=== PATIENT | female | born 1955 | race Caucasian/White ===

== ENCOUNTER 2019-12-11 12:03 | Outpatient (CLI) | payer MEDICARE, MEDICAID, SELFPAY ==
--- NOTE | 2019-12-11 12:45 | USCV_ITS ---
Lorena Murray Age: 64 Gender: F : 1955 Exam Date: 12/11/2019 12:26 Ordering Phys: Dany Andino MD Technologist: Natasha Small Exam Location: [facility] [place] Indication: Cerebral vascular disease BP: 147 / 99 HR: 68 Rhythm: Sinus Technical Quality: Suboptimal MEASUREMENTS (Male / Female) Normal Values 2D ECHO LV Diastolic Diameter PLAX 3.9 cm 4.2 - 5.9 / 3.9 - 5.3 cm LV Systolic Diameter PLAX 2.5 cm LV Chamber Size 4.2 cm IVS Diastolic Thickness 1.6 cm 0.6 - 1.0 / 0.6 - 0.9 cm IVS Systolic Thickness 1.8 cm LVPW Diastolic Thickness 1.3 cm 0.6 - 1.0 / 0.6 - 0.9 cm LVPW Systolic Thickness 1.7 cm RV Chamber Size 2.0 cm LVOT Diameter 2.2 cm LV Ejection Fraction 2D Teich 64.1 % LA Diameter 3.7 cm LA Width 3.3 cm LA Height 5.1 cm RA Width 2.3 cm RA Height 5.0 cm Aorta at Sinotubular Diameter 2.3 cm M-MODE LV Diastolic Diameter MM 5.8 cm 4.2 - 5.9 / 3.9 - 5.3 cm LV Systolic Diameter MM 3.6 cm LV Ejection Fraction MM Teich 67.9 % IVS Diastolic Thickness MM 0.9 cm 0.6 - 1.0 / 0.6 - 0.9 cm IVS Systolic Thickness MM 1.4 cm LVPW Diastolic Thickness MM 1.3 cm 0.6 - 1.0 / 0.6 - 0.9 cm LVPW Systolic Thickness MM 1.9 cm RV Diastolic Diameter MM 1.2 cm Aortic Annulus Diameter 3.1 cm LA Ao Ratio MM 1.2 MV E Point Septal Separation 1.0 cm DOPPLER AV Peak Velocity 104.0 cm/s LVOT Peak Velocity 74.0 cm/s AV Area Cont Eq vti 2.6 cm squared AV Area Cont Eq pk 2.6 cm squared MV Area PHT 3.9 cm squared Mitral E to A Ratio 0.8 MV E' Velocity 9.0 cm/s Mitral E to MV E' Ratio 8.9 Mitral E to LV E' Lateral Ratio 7.2 Mitral E to LV E' Septal Ratio 11.7 TV Peak E Velocity 55.0 cm/s Right Atrial Pressure 3.0 mmHg PV Peak Velocity 60.0 cm/s RV Acceleration Time 0.1 s RV Ejection Time 0.3 s RV AcT/ET 0.4 FINDINGS Left Ventricle Normal left ventricular size, systolic function and wall thickness, with no regional wall motion abnormalities. Grade I/IV diastolic dysfunction (abnormal relaxation filling pattern), normal to mildly elevated filling pressures. Left ventricular ejection fraction is estimated at 55 %. Right Ventricle Normal right ventricular size and systolic function. Normal right ventricular systolic pressure. Right Atrium The right atrium is normal in size. Left Atrium The left atrium is normal in size. Mitral Valve Structurally normal mitral valve without significant stenosis or prolapse. There is no mitral regurgitation. Aortic Valve Structurally normal aortic valve without significant sclerosis or stenosis. There is no aortic regurgitation. Tricuspid Valve Structurally normal tricuspid valve without significant stenosis or regurgitation. Pulmonary artery systolic pressure is normal. Pulmonic Valve Pulmonic valve not well visualized. Pericardium Normal pericardium without effusion. Aorta Normal ascending aorta dimension. CONCLUSIONS Normal left ventricular size, systolic function and wall thickness, with no regional wall motion abnormalities. Grade I/IV diastolic dysfunction (abnormal relaxation filling pattern), normal to mildly elevated filling pressures. Left ventricular ejection fraction is estimated at 55 %. No change from the previous echo dictated 10/03/2017 Dr. Dave Carpio MD (Electronically Signed) Final Date: 11 December 2019 17:35 S
== END 2019-12-11 12:04 | disposition home or self-care (01) ==
LOC: US 12:06
PROVIDERS: Family Provider Family Medicine; PCP Nurse Practitioner Family; Visit Provider Family Medicine
DX: I67.9 Cerebrovascular disease, unspecified (principal)
CPT/HCPCS: 93306

== ENCOUNTER 2019-12-16 15:31 | Outpatient (CLI) | payer MEDICARE, MEDICAID, SELFPAY ==
--- NOTE | 2019-12-16 | US_ITS ---
WS: [id number] DUPLEX CAROTID ULTRASOUND HISTORY: CVA COMPARISON: None available. Doppler and 2-D imaging of the carotid arteries demonstrates no significant stenosis. Mild scattered plaque at the bifurcations bilaterally. Waveforms are normal. ICA to CCA ratios are normal. Vertebral arteries are antegrade. US/ROR carotid duplex BI IMPRESSION: 1. No significant carotid artery stenosis. 2. Mild atherosclerosis at the bifurcations.
== END 2019-12-16 15:32 | disposition home or self-care (01) ==
PROVIDERS: Family Provider Family Medicine; Visit Provider Family Medicine
DX: Z76.89 Persons encountering health services in other specified circumstances (principal)

== ENCOUNTER 2020-09-24 14:08 | Emergency (ER) | payer MEDICARE, MEDICAID, SELFPAY ==
[2020-09-24] VITALS (7 sets, daily range): BP systolic 86–178; BP diastolic 53–95; PULSE 75–88; RESP 14–18; TEMP 36.7; O2SAT 94–98; BMI 30.9
--- NOTE | 2020-09-24 15:06 | XRR_ITS ---
PROCEDURE INFORMATION: Exam: XR Chest, 1 View Exam date and time: 09/24/2020 4:53 PM Age: 65 years old Clinical indication: Injury or trauma; Fall; Blunt trauma (contusions or hematomas) TECHNIQUE: Imaging protocol: XR of the chest Views: 1 view. COMPARISON: CT Chest/Abdomen/Pelvis w IV* 03/15/2018 6:10 PM FINDINGS: Lungs: Mild increased interstitial markings. No consolidative pulmonary infiltrate noted. Pleural space: No pleural effusion. No pneumothorax. Heart/Mediastinum: No cardiomegaly. Bones/joints: Unremarkable. XR/XR chest 1V portable [id number] IMPRESSION: 1. Mild increased interstitial markings. No consolidative pulmonary infiltrate noted. 2. No acute cardiopulmonary disease demonstrated.
--- NOTE | 2020-09-24 15:06 | XRR_ITS ---
PROCEDURE INFORMATION: Exam: XR Left Hip with Pelvis when Performed Exam date and time: 09/24/2020 4:53 PM Age: 65 years old Clinical indication: Injury or trauma; Fall; Blunt trauma (contusions or hematomas); Left; Hip TECHNIQUE: Imaging protocol: XR Left hip with pelvis when performed. Views: 2 or 3 views. COMPARISON: CR Pelvis AP 1 or 2 views* [id number] 04/08/2018 5:41 PM FINDINGS: Bones/joints: Status post left hip hemiarthroplasty. No hip dislocation. No fracture or other acute osseous abnormality. Soft tissues: Unremarkable. XR/XR hip LT 2-3V wo/w pel* [id number] IMPRESSION: 1. Status post left hip hemiarthroplasty. 2. No acute fracture demonstrated.
[2020-09-24 15:24] LABS: Basophils % 0.2 %; Hematocrit 42.7 % (37.0-47.0); Lymphocytes # 1.4 10^3/uL (0.8-4.8); Lymphocytes % 26.9 %; Mean Corpuscular HGB Conc 32.8 g/dL (30.0-36.0); Mean Corpuscular Hemoglobin 27.6 pg (28.0-34.0); Mean Corpuscular Volume 84.1 fL (81-99); Monocytes # 0.4 10^3/uL (0.2-0.9); Monocytes % 6.8 %; Neutrophils # 3.41 10^3/uL (1.8-7.7); Neutrophils % 65.9 %; Nucleated Red Blood Cells % 0 %; Platelet Count 105 10^3/cmm (130-400); Red Blood Count 5.08 10^6/uL (4.1-5.3); Red Cell Distribution Width 13.4 % (12.1-15.1); White Blood Count 5.2 10^3/uL (4.0-10.0)
--- NOTE | 2020-09-24 15:27 | ED_ITS ---
HPI - Weakness General: Chief complaint: Weakness Stated complaint: INCREASED WEAKNESS/ FALLS Time Seen by Provider: 09/24/20 14:41 Source: patient Mode of arrival: EMS Limitations: no limitations History of Present Illness: HPI Narrative: This is a 65-year-old female patient presents to the emergency department with several different complaints. She complains of generalized body aches, a fever a few days ago, bilateral knee pains, and several falls. She states that she has fallen several times in the last few days and sustained an ear laceration. The laceration was 2 days ago and she does put some skin glue on it. She is here to be evaluated. MD Complaint: generalized weakness and difficulty walking Associated symptoms: Denies chills, dysuria, fever(s), headache(s), nausea or vomiting Review of Systems General: Reports: 10 or more systems reviewed and unremarkable except in HPI and below Const: Reports: body aches; Denies: fever(s) or chills Eyes: Denies: change in vision or blurry vision ENMT: Denies: throat pain, enlarged tonsils, odynophagia, hoarseness, mouth pain or swelling of lips/tongue Card: Denies: palpitations, irregular heart rhythm, edema or swelling of feet/ankles Resp: Denies: dyspnea, productive cough or non-productive cough GI: Denies: abdominal pain, nausea or vomiting : Denies: flank pain, difficulty voiding, dysuria, urinary frequency, uri nary urgency or urinary hesitancy Musc: Reports: extremity pain, joint pain and muscle cramps; Denies: neck pain, back pain or extremity swelling Skin/Breast: Denies: rash, pruritus or erythema Neuro: Denies: headache(s), numbness in extremities or weakness in extremities Endo: Denies: polyuria, polydipsia or tired all the time PFS ED PFSH: Medical History Chronic UTI Hepatitis C Hypertension Panic disorder Family History Father CAD (coronary artery disease) Psychiatric illness Mother CAD (coronary artery disease) Hypertension Psychiatric illness Grandmother Cancer Psychiatric illness Brother Cancer Psychiatric illness Social History Smoking and tobacco status: current some day smoker Second hand smoke exposure: Yes Alcohol intake: former Physical Exam Const: COMMON NORMALS: no acute distress, average body habitus, patient oriented x3, no limitations, healthy appearing, alert and well nourished HENMT: COMMON NORMALS: normocephalic, atraumatic and moist oral mucous membranes HEAD & SCALP: normocephalic and atraumatic Neck/C-Spine: COMMON NORMALS: no meningeal signs and no JVD Resp: COMMON NORMALS: normal respiratory effort, No retractions, No use of accessory muscles, clear to auscultation bilaterally and percussion normal AUSCULTATION: clear to auscultation bilaterally PERCUSSION: percussion normal Cardio: COMMON NORMALS: no JVD, regular rate, regular rhythm, S1 normal heart sound present, S2 normal heart sound present, No gallops present (Cardio), No clicks present (Cardio), No murmurs present (Cardio), No rub (Cardio) and Peripheral pulses 2+ throughout RATE: regular rate RHYTHM: regular rhythm HEART SOUNDS: S1 normal heart sound present and S2 normal heart sound present PERIPHERAL PULSES: Peripheral pulses 2+ throughout GI: COMMON NORMALS: Normal to inspection, nondistended, normoactive bowel sounds present, Soft to palpation, non-tender, No hepatosplenomegaly present, no masses and no bruits PALPATION: Yes Soft to palpation and Yes No hepatosplenomegaly present Extremity: COMMON NORMALS: normal to inspection, full ROM, capillary refill normal, no calf tenderness and no pedal edema Neuro: COMMON NORMALS: patient oriented x3 SENSORIUM/ORIENTATION: Yes alert MENINGEAL SIGNS: Yes no meningeal signs Skin: COMMON NORMALS: no rashes or lesions noted, no wounds, turgor normal, no jaundice, no petechiae and no mottling GENERAL SKIN EXAM: no rashes or lesions noted and turgor normal Course Vital Signs: Vital signs: Vital Signs Temperature 98.1 F 09/24/20 14:16 Pulse Rate 78 09/24/20 22:53 Respiratory Rate 16 09/24/20 22:53 Blood Pressure 136/72 09/24/20 22:53 Pulse Oximetry 94 09/24/20 22:53 MDM - Weakness MDM Narrative: Medical decision making narrative: This 65 year old female patient who presented to the ED with several non specific complaints but the overriding theme is pain and she wanted massive doses of pain medication. I spoke with her PCP, Dr. Andino and he advised that i only give her what i believe is appropriate and she does not take 40 mg of morphine as she claims. Evaluation of the patient in the ED including labs and imaging were unremarkable. She was quite uncooperative in the ED and did not comply with a lot of what we wanted to do to investigate her symptoms. She only wanted pain medication. Since i could not find any acute cause for her symptoms, and her vital signs are unremarkable and stable. She is discharged home with no new orders. Medical Records: Attestation: I reviewed the patient's medical records. Lab Data: Attestation: I reviewed the patient's lab results. Labs: Lab Results 09/24/20 09/24/20 09/24/20 Range/Units 15:15 15:15 15:15 WBC 5.2 (4.0-10.0) 10^3/ uL RBC 5.08 (4.1-5.3) 10^6/u L Hgb 14.0 (11.5-15.3) g/dL Hct 42.7 (37.0-47.0) % MCV 84.1 (81-99) fL MCH 27.6 L (28.0-34.0) pg MCHC 32.8 (30.0-36.0) g/dL RDW 13.4 (12.1-15.1) % Plt Count 105 L (130-400) 10^3/c mm MPV 11.0 H (7.4-10.4) fL Neut % (Auto) 65.9 % Lymph % (Auto) 26.9 % Juncos % (Auto) 6.8 % Eos % (Auto) 0.0 % Baso % (Auto) 0.2 % Neut # (Auto) 3.41 (1.8-7.7) 10^3/u L Lymph # (Auto) 1.4 (0.8-4.8) 10^3/u L Juncos # (Auto) 0.4 (0.2-0.9) 10^3/u L Eos # (Auto) 0.0 (0.0-0.8) 10^3/u L Baso # (Auto) 0.0 (0.0-0.1) 10^3/u L Nucleated RBC % (a uto) 0 % Nucleated RBCs # 0.0 /100WBC Sodium 142 (136-145) mmol/L Potassium 4.1 (3.5-5.1) mmol/L Chloride 108 H (98-107) mmol/L Carbon Dioxide 24 (22-29) mmol/L Anion Gap 14.1 (5-19) BUN 26 H (8-23) mg/dL Creatinine 0.5 (0.5-0.9) mg/dL GFR Calculation 123.4 (90-130) mL/min Glucose 103 (65-115) mg/dL Calculated Osmolal ity 299 H (285-295) mOsm/k g Lactate 1.5 (0.5-2.2) mmol/L Calcium 9.5 (8.5-10.5) mg/dL Total Bilirubin 0.2 (0.15-1.2) mg/dL AST 22 (0-32) U/L ALT 15 (0-33) U/L Alkaline Phosphata se 77 (35-105) IU/L Creatine Kinase 147 (26-192) U/L C-Reactive Protein 7.2 H (0.0-4.9) mg/L Total Protein 7.1 (6.6-8.7) g/dL Albumin 3.9 (3.5-5.2) g/dL Globulin 3.2 (1.3-4.6) g/dL Lipase 44 (13-60) U/L Procalcitonin 0.11 (0-0.5) ng/mL Urine Color (Yellow) Urine Appearance (CLEAR) Urine pH (5-7) Ur Specific Gravit y (1.005-1.030) Urine Protein (Negative) Urine Glucose (UA) (Normal) Urine Ketones (Negative) Urine Blood (Negative) Urine Nitrate (Negative) Urine Bilirubin (Negative) Urine Urobilinogen (Negative) mg/dL Ur Leukocyte Bia ase (Negative) Influenza Type A A g (Negative) Influenza Type B A g (Negative) SARS-CoV-2 Ag (Rap id) (Negative) 09/24/20 09/24/20 09/24/20 Range/Units 15:35 15:35 19:50 WBC (4.0-10.0) 10^3/ uL RBC (4.1-5.3) 10^6/u L Hgb (11.5-15.3) g/dL Hct (37.0-47.0) % MCV (81-99) fL MCH (28.0-34.0) pg MCHC (30.0-36.0) g/dL RDW (12.1-15.1) % Plt Count (130-400) 10^3/c mm MPV (7.4-10.4) fL Neut % (Auto) % Lymph % (Auto) % Juncos % (Auto) % Eos % (Auto) % Baso % (Auto) % Neut # (Auto) (1.8-7.7) 10^3/u L Lymph # (Auto) (0.8-4.8) 10^3/u L Juncos # (Auto) (0.2-0.9) 10^3/u L Eos # (Auto) (0.0-0.8) 10^3/u L Baso # (Auto) (0.0-0.1) 10^3/u L Nucleated RBC % (a uto) % Nucleated RBCs # /100WBC Sodium (136-145) mmol/L Potassium (3.5-5.1) mmol/L Chloride (98-107) mmol/L Carbon Dioxide (22-29) mmol/L Anion Gap (5-19) BUN (8-23) mg/dL Creatinine (0.5-0.9) mg/dL GFR Calculation (90-130) mL/min Glucose (65-115) mg/dL Calculated Osmolal ity (285-295) mOsm/k g Lactate (0.5-2.2) mmol/L Calcium (8.5-10.5) mg/dL Total Bilirubin (0.15-1.2) mg/dL AST (0-32) U/L ALT (0-33) U/L Alkaline Phosphata se (35-105) IU/L Creatine Kinase (26-192) U/L C-Reactive Protein (0.0-4.9) mg/L Total Protein (6.6-8.7) g/dL Albumin (3.5-5.2) g/dL Globulin (1.3-4.6) g/dL Lipase (13-60) U/L Procalcitonin (0-0.5) ng/mL Urine Color Yellow (Yellow) Urine Appearance Clear (CLEAR) Urine pH 5 (5-7) Ur Specific Gravit y 1.025 (1.005-1.030) Urine Protein Neg (Negative) Urine Glucose (UA) Norm (Normal) Urine Ketones Negative (Negative) Urine Blood Neg (Negative) Urine Nitrate Negative (Negative) Urine Bilirubin Neg (Negative) Urine Urobilinogen Norm (Negative) mg/dL Ur Leukocyte Bia ase Negative (Negative) Influenza Type A A g Negative (Negative) Influenza Type B A g Negative (Negative) SARS-CoV-2 Ag (Rap id) Negative (Negative) Imaging Data^: CXR: Attestation: I personally reviewed and interpreted this imaging study as follows: Radiologist's impression: [place] [address] XRay Report Signed Patient: Lorena Murray #: [id number] : 4Acct#:[id number] Age/Sex: 65 / FADM Date: 09/24/20 [facility] [place] Attending Dr: Ordering Provider/Ordering MD: Boni Small MD, [facility] [place] Date of Service: 09/24/20 Procedure(s): XR chest 1V portable [id number] Accession Number(s): [id number] Report Number: [id number] PROCEDURE INFORMATION: Exam: XR Chest, 1 View Exam date and time: 09/24/2020 4:53 PM Age: 65 years old Clinical indication: Injury or trauma; Fall; Blunt trauma (contusions or hematomas) TECHNIQUE: Imaging protocol: XR of the chest Views: 1 view. COMPARISON: CT Chest/Abdomen/Pelvis w IV* 03/15/2018 6:10 PM FINDINGS: Lungs: Mild increased interstitial markings. No consolidative pulmonary infiltrate noted. Pleural space: No pleural effusion. No pneumothorax. Heart/Mediastinum: No cardiomegaly. Bones/joints: Unremarkable. XR/XR chest 1V portable [id number] IMPRESSION: 1. Mild increased interstitial markings. No consolidative pulmonary infiltrate noted. 2. No acute cardiopulmonary disease demonstrated. Dictated By:Akash Jung MD Signed By:Akash Jugn MDSigned Date/Time:09/24/201917 DD/ 16 Xray Ortho: Radiologist's impression: [address] [address] XRay Report Signed Patient: Lorena Murray #: [id number] : 1955t#:[id number] Age/Sex: 65 / FADM Date: 09/24/20 Loc: ERRoom/Bed: Attending Dr: Ordering Provider/Ordering MD: Boni Small MD, [facility] [place] Date of Service: 09/24/20 Procedure(s): XR hip LT 2-3V wo/w pel* [id number] Accession Number(s): [id number] Report Number: [id number] PROCEDURE INFORMATION: Exam: XR Left Hip with Pelvis when Performed Exam date and time: 09/24/2020 4:53 PM Age: 65 years old Clinical indication: Injury or trauma; Fall; Blunt trauma (contusions or hematomas); Left; Hip TECHNIQUE: Imaging protocol: XR Left hip with pelvis when performed. Views: 2 or 3 views. COMPARISON: CR Pelvis AP 1 or 2 views* [id number] 04/08/2018 5:41 PM FINDINGS: Bones/joints: Status post left hip hemiarthroplasty. No hip dislocation. No fracture or other acute osseous abnormality. Soft tissues: Unremarkable. XR/XR hip LT 2-3V wo/w pel* [id number] IMPRESSION: 1. Status post left hip hemiarthroplasty. 2. No acute fracture demonstrated. Dictated By:Akash Jung MD Signed By:Akash Jung MDSigned Date/Time:09/24/201917 DD/ [address] [address] XRay Report Signed Patient: Lorena Murray #: [id number] : 4Acct#:[id number] Age/Sex: 65 / FADM Date: 09/24/20 Loc: ERRoom/Bed: Attending Dr: Ordering Provider/Ordering MD: Boni Small MD, [facility] [place] Date of Service: 09/24/20 Procedure(s): XR knee LT 3V* [id number] Accession Number(s): [id number] Report Number: [id number] PROCEDURE INFORMATION: Exam: XR Left Knee Exam date and time: 09/24/2020 6:41 PM Age: 65 years old Clinical indication: Injury or trauma; Fall; Blunt trauma; Knee; Left; Additional info: Knee pain TECHNIQUE: Imaging protocol: XR Left knee. Views: 3 views. COMPARISON: No relevant prior studies available. FINDINGS: Bones/joints: No fracture or other acute osseous abnormality. No joint narrowing, dislocation, or effusion noted. Small osteophytes arise from the superior and inferior portions of the patella. Soft tissues: The soft tissues appear unremarkable. XR/XR knee LT 3V* [id number] IMPRESSION: No acute abnormality demonstrated. Dictated By:Akash Jung MD Signed By:Akash Jung MDSigned Date/Time:09/24/202022 DD/ 21 Other Xray: Radiologist's impression: [place] [address] CT Scan Report Signed Patient: Lorena Murray #: [id number] : 4Acct#:[id number] Age/Sex: 65 / FADM Date: 09/24/20 Loc: ERRoom/Bed: Attending Dr: Ordering Provider/Ordering MD: Boni Small MD, [facility] [place] Date of Service: 09/24/20 Procedure(s): CT lumbar spine wo con* [id number] Accession Number(s): [id number] Report Number: [id number] PROCEDURE INFORMATION: Exam: CT Lumbar Spine Without Contrast Exam date and time: 09/24/2020 7:19 PM Age: 65 years old Clinical indication: Low back pain; Prior surgery; Surgery type: Thr; Patient HX: Multiple falls. Decreased weight bearing. C/O back and bilateral leg pain. TECHNIQUE: Imaging protocol: Computed tomography images of the lumbar spine without contrast. Radiation optimization: All CT scans at this facility use at least one of these dose optimization techniques: automated exposure control; mA and/or kV adjustment per patient size (includes targeted exams where dose is matched to clinical indication); or iterative reconstruction. COMPARISON: CR Lumbar Spine 2-3 views* [id number] 04/08/2018 5:41 PM RADIATION DOSE METRICS: Total DLP (mGy-cm): 902.78 FINDINGS: Vertebrae: Severe old T12 compression fracture. Mild old L3 and L4 superior endplate compression fractures. No acute fracture or other acute osseous abnormality. Discs/Spinal canal/Neural foramina: Severe degenerative disc narrowing and vacuum disc phenomenon at L5-S1. Intervertebral disc heights are otherwise preserved. Mild vacuum disc phenomenon at T12-L1. Spondylitic changes at the L2-L3 level and L3-L4 level result in mild spinal canal stenosis. There is a left paracentral disc protrusion at L5-S1, which may impinge upon the left S1 nerve. Soft tissues: Unremarkable. CT/CT lumbar spine wo con* [id number] IMPRESSION: 1. No acute fracture or other acute osseous abnormality. Old compression fractures at T12, L3, and L4. 2. Spondylitic changes at the L2-L3 level and L3-L4 level result in mild spinal canal stenosis. 3. There is a left paracentral disc protrusion at L5-S1, which may impinge upon the left S1 nerve. Radiation Dose CTDIVOL = (mGy): DLP = 902.78 (mGy-cm) Dictated By:Akash Jung MD Signed By:Akash Jung MDSigned Date/Time:09/24/202039 DD/ 38 Discharge Plan Discharge Patient Disposition: Home Clinical Impression: Chronic pain, Physical deconditioning Condition: Stable Prescriptions: Continued magnesium oxide 400 mg (241.3 mg magnesium) tablet 400 mg PO BEDTIME RF: 0 amlodipine 5 mg tablet 5 mg PO QAM RF: 0 potassium chloride 10 mEq tablet extended release 10 meq PO BEDTIME RF: 0 levothyroxine [Synthroid] 112 mcg tablet 112 mcg PO QAM RF: 0 montelukast 10 mg tablet 10 mg PO DAILY PRN (Reason: unknown) RF: 0 dicyclomine 10 mg capsule 10 mg PO QID RF: 0 nicotine 21 mg/24 hr patch 24 hour 1 patch transdermal DAILY RF: 0 gabapentin 800 mg tablet 800 mg PO TID RF: 0 metoprolol tartrate 25 mg tablet 25 mg PO Q12H RF: 0 furosemide 40 mg tablet 20 mg PO DAILY PRN (Reason: Edema) RF: 0 garlic 1,000 mg capsule 1,000 mg PO QAM RF: 0 red yeast rice 600 mg tablet 600 mg PO BID RF: 0 mecobalamin (vitamin B12) 1,000 mcg tablet,chewable 1,000 mcg PO QAM RF: 0 aspirin [Adult Aspirin Regimen] 81 mg tablet,delayed release (DR/EC) 81 mg PO QAM RF: 0 diphenhydramine HCl [Allergy Relief(diphenhydramin)] 25 mg tablet 25 mg PO QID PRN (Reason: Allergy Symptoms) RF: 0 loperamide [Imodium A-D] 2 mg capsule 2 mg PO QID PRN (Reason: Diarrhea) RF: 0 alprazolam [Xanax] 2 mg tablet 2 mg PO TID PRN (Reason: unknown) RF: 0 albuterol sulfate [ProAir HFA] 90 mcg/actuation HFA aerosol inhaler 2 puff inhalation QID PRN (Reason: Shortness Of Breath) RF: 0 metronidazole 0.75 % cream 1 applic topical BID Qty: 45 RF: 3 pantoprazole 40 mg tablet,delayed release (DR/EC) 40 mg PO BID MDD 2 30 Days Qty: 60 RF: 3 ibuprofen 800 mg Tablet 800 mg PO BID RF: 0 citalopram 20 mg tablet 20 mg PO DAILY RF: 0 triamcinolone acetonide 0.025 % Cream 1 applic TOPICAL BID PRN (Reason: unknown) RF: 0 ascorbic acid (vitamin C) 500 mg Tablet,Chewable 1,000 mg PO DAILY@12 RF: 0 omega 9-wwq-jic-fish oil 500-1,000 mg Capsule 1 cap PO BEDTIME RF: 0 Afar-Fggl-Hdnsv (vit C-biotin) 50 mg -1,250 mcg Tablet,Chewable 2 tab PO DAILY RF: 0 Probichew 21 billion cell - 1 gram Tablet,Chewable 2 tab PO QAM RF: 0 Elderberry Gummy 1 cap PO DAILY@12 RF: 0 Discharge Orders: Discharge ED (Routine); Ordered 09/24/20 Ordered By: Boni Small Referrals: Dany Andino MD [Primary Care Provider] - 1-3 days Discharge Diet: Usual diet Discharge Activity: Increase activity as tolerated Patient Instructions: Chronic Pain (ED), Weakness (ED) Activity Restrictions/Additional Instructions: Return for any new or worsening symptoms. Follow-up with your primary care provider within 2 days. You probably will benefit from physical therapy, either at home or in a [facility] facility. Discussed with your primary care provider on your best options. Continue home medications. Coding Level of Care Code ED [employer] for Chg Fwd Exam Comprehensive
[2020-09-24] MEDS: morphine 4 mg/mL SDV 1 mL 10 MG IVP (15:33)
[2020-09-24 15:42] LABS: Alanine Aminotransferase 15 U/L (0-33); Albumin Level 3.9 g/dL (3.5-5.2); Alkaline Phosphatase 77 IU/L (35-105); Anion Gap 14.1 (5-19); Aspartate Amino Transferase 22 U/L (0-32); Blood Urea Nitrogen 26 mg/dL (8-23); C Reactive Protein 7.2 mg/L (0.0-4.9); Calcium 9.5 mg/dL (8.5-10.5); Carbon Dioxide 24 mmol/L (22-29); Chloride 108 mmol/L (98-107); Creatine Phosphokinase 147 U/L (26-192); Globulin 3.2 g/dL (1.3-4.6); Glomerular Filtration Rate 123.4 mL/min (90-130); Glucose 103 mg/dL (65-115); Lipase 44 U/L (13-60); Osmolality Calculated 299 mOsm/kg (285-295); Potassium 4.1 mmol/L (3.5-5.1); Sodium 142 mmol/L (136-145); Total Bilirubin 0.2 mg/dL (0.15-1.2); Total Protein 7.1 g/dL (6.6-8.7)
[2020-09-24 15:43] LABS: Lactate (Lactic Acid level) 1.5 mmol/L (0.5-2.2)
[2020-09-24 16:07] LABS: Procalcitonin 0.11 ng/mL (0-0.5)
[2020-09-24 16:29] LABS: SARS Covid-2 Antigen Negative (Negative)
--- NOTE | 2020-09-24 16:38 | PC.NURSE ---
Pt continues to ask for Morphine 40 mg.
[2020-09-24 16:45] LABS: Influenza A by IFA Negative (Negative); Influenza B by IFA Negative (Negative)
[2020-09-24] MEDS: sodium chloride 0.9% 1,000 ML 999 ML IV (17:06)
--- NOTE | 2020-09-24 18:16 | XRR_ITS ---
PROCEDURE INFORMATION: Exam: XR Left Knee Exam date and time: 09/24/2020 6:41 PM Age: 65 years old Clinical indication: Injury or trauma; Fall; Blunt trauma; Knee; Left; Additional info: Knee pain TECHNIQUE: Imaging protocol: XR Left knee. Views: 3 views. COMPARISON: No relevant prior studies available. FINDINGS: Bones/joints: No fracture or other acute osseous abnormality. No joint narrowing, dislocation, or effusion noted. Small osteophytes arise from the superior and inferior portions of the patella. Soft tissues: The soft tissues appear unremarkable. XR/XR knee LT 3V* [id number] IMPRESSION: No acute abnormality demonstrated.
--- NOTE | 2020-09-24 18:16 | CTR_ITS ---
PROCEDURE INFORMATION: Exam: CT Lumbar Spine Without Contrast Exam date and time: 09/24/2020 7:19 PM Age: 65 years old Clinical indication: Low back pain; Prior surgery; Surgery type: Thr; Patient HX: Multiple falls. Decreased weight bearing. C/O back and bilateral leg pain. TECHNIQUE: Imaging protocol: Computed tomography images of the lumbar spine without contrast. Radiation optimization: All CT scans at this facility use at least one of these dose optimization techniques: automated exposure control; mA and/or kV adjustment per patient size (includes targeted exams where dose is matched to clinical indication); or iterative reconstruction. COMPARISON: CR Lumbar Spine 2-3 views* [id number] 04/08/2018 5:41 PM RADIATION DOSE METRICS: Total DLP (mGy-cm): 902.78 FINDINGS: Vertebrae: Severe old T12 compression fracture. Mild old L3 and L4 superior endplate compression fractures. No acute fracture or other acute osseous abnormality. Discs/Spinal canal/Neural foramina: Severe degenerative disc narrowing and vacuum disc phenomenon at L5-S1. Intervertebral disc heights are otherwise preserved. Mild vacuum disc phenomenon at T12-L1. Spondylitic changes at the L2-L3 level and L3-L4 level result in mild spinal canal stenosis. There is a left paracentral disc protrusion at L5-S1, which may impinge upon the left S1 nerve. Soft tissues: Unremarkable. CT/CT lumbar spine wo con* [id number] IMPRESSION: 1. No acute fracture or other acute osseous abnormality. Old compression fractures at T12, L3, and L4. 2. Spondylitic changes at the L2-L3 level and L3-L4 level result in mild spinal canal stenosis. 3. There is a left paracentral disc protrusion at L5-S1, which may impinge upon the left S1 nerve. Radiation Dose CTDIVOL = (mGy): DLP = 902.78 (mGy-cm)
--- NOTE | 2020-09-24 18:16 | XRR_ITS ---
PROCEDURE INFORMATION: Exam: XR Right Knee Exam date and time: 09/24/2020 6:41 PM Age: 65 years old Clinical indication: Injury or trauma; Fall; Blunt trauma; Knee; Right; Additional info: Knee pain TECHNIQUE: Imaging protocol: XR Right knee. Views: 3 views. COMPARISON: No relevant prior studies available. FINDINGS: Bones/joints: No fracture or other acute osseous abnormality. No joint narrowing, dislocation, or effusion noted. Minimal osteophyte formation arising from the superior and inferior portions of the patella. Soft tissues: The soft tissues appear unremarkable. XR/XR knee RT 3V* [id number] IMPRESSION: No acute abnormality demonstrated.
[2020-09-24 19:59] LABS: Add Urine Microscopic? NO
[2020-09-24 20:03] LABS: Bilirubin Urine Neg (Negative); Blood Urine Neg (Negative); Glucose Urine UA Norm (Normal); Ketones Urine Negative (Negative); Leukocyte Esterase Urine Negative (Negative); Nitrate Urine Negative (Negative); Protein Urine Neg (Negative); Specific Gravity, Urine 1.025 (1.005-1.030); Urine Appearance Clear (CLEAR); Urine Color Yellow (Yellow); Urobilinogen Urine Norm (Negative); pH Urine 5 (5-7)
--- NOTE | 2020-09-24 21:26 | PC.NURSE ---
Patient demanding pain medication (40 mg morphine) -explained Dr said no more pain med very angry -demanding this ER send her to a different hospital- explained plan of discharge demanding sandwich-provided
== END 2020-09-24 22:57 | disposition home or self-care (01) ==
PROVIDERS: Emergency Provider Family Medicine; PCP Family Medicine
DX: G89.29 Other chronic pain (principal); Z79.82 Long term (current) use of aspirin; Z86.19 Personal history of other infectious and parasitic diseases; I10 Essential (primary) hypertension; F17.210 Nicotine dependence, cigarettes, uncomplicated
CPT/HCPCS: 12345; 71045; 72131; 73502; 73562; 80053; 81003; 82550; 83605; 83690; 84145; 85025; 86140; 87426; 87804; 96361; 96374; 96375; 99283; 99284; J2270; J7030

== ENCOUNTER 2020-12-26 13:50 | Emergency (ER) | payer MEDICARE, MEDICAID, SELFPAY ==
[2020-12-26 13:52] VITALS: BP 115/69; PULSE 78; RESP 18; O2SAT 97; BMI 32.5
[2020-12-26 13:59] VITALS: BP 101/63; PULSE 72; RESP 16; O2SAT 98
--- NOTE | 2020-12-26 14:11 | XRR_ITS ---
PROCEDURE INFORMATION: Exam: XR Left Ankle Exam date and time: 12/26/2020 2:15 PM Age: 65 years old Clinical indication: Pain; Ankle; Left; Additional info: Ankle injury TECHNIQUE: Imaging protocol: XR Left ankle. Views: 3 or more views. COMPARISON: CR Ankle 3 views, LEFT* [id number] 03/23/2014 9:44 PM FINDINGS: Bones/joints: There is an ankle joint effusion. Soft tissues: There is edema and hematoma in the soft tissues surrounding the ankle. XR/XR ankle LT min 3V* [id number] IMPRESSION: 1. There is edema and hematoma in the soft tissues surrounding the ankle. 2. There is an ankle joint effusion.
--- NOTE | 2020-12-26 14:15 | W.ED.EXTPRO ---
HPI - Extremity Problem General: Chief complaint: Extremity Injury, Lower Stated complaint: FALL Time Seen by Provider: 12/26/20 14:00 History of Present Illness: HPI Narrative: Patient is a 65-year-old female comes to the ED after having a fall. Patient says she was sitting on her toilet and fell off to the side. She is complaining of having left ankle, left knee and left hip pain. She reports the left ankle as 10 out of 10 pain with swelling as well. Denies any loss of consciousness but is unsure if she hit her head or not. Associated symptoms: Deny chest pain, fever(s) or rash Review of Systems Const: Denies: fever(s), chills or fatigue Eyes: Denies: change in vision or eye discomfort ENMT: Denies: throat pain, odynophagia, nasal discharge or nasal congestion Card: Denies: chest pain, palpitations, edema, swelling of feet/ankles, dyspnea on exertion or orthopnea Resp: Denies: dyspnea, productive cough or non-productive cough GI: Denies: abdominal pain, nausea, vomiting, diarrhea, constipation or hematochezia : Denies: flank pain, dysuria or hematuria Musc: Reports: extremity pain (Left hip, left knee and left ankle) and extremity swelling (Left ankle swelling); Denies: neck pain or back pain Skin/Breast: Denies: rash or new lesions Neuro: Denies: headache(s), numbness in extremities or weakness in extremities [facility] PFSH: Medical History Chronic UTI Hepatitis C Hypertension Panic disorder Family History Father CAD (coronary artery disease) Psychiatric illness Mother CAD (coronary artery disease) Hypertension Psychiatric illness Grandmother Cancer Psychiatric illness Brother Cancer Psychiatric illness Social History Smoking and tobacco status: current some day smoker Second hand smoke exposure: Yes Alcohol intake: former Physical Exam Const: COMMON NORMALS: no acute distress, patient oriented x3 and alert GENERAL APPEARANCE: cooperative and comfortable HENMT: COMMON NORMALS: normocephalic HEAD & SCALP: normocephalic MOUTH: Normal oral and palatal mucosa present THROAT: posterior oropharynx normal and uvula midline Eye: COMMON NORMALS: Equal, round and reactive pupils present and EOMs intact bilaterally PUPIL: Yes Equal, round and reactive pupils present Neck/C-Spine: COMMON NORMALS: supple GENERAL: Yes normal visual inspection Resp: COMMON NORMALS: normal respiratory effort, No retractions, No use of accessory muscles and clear to auscultation bilaterally AUSCULTATION: clear to auscultation bilaterally Cardio: COMMON NORMALS: regular rate, regular rhythm, S1 normal heart sound present, S2 normal heart sound present, No gallops present (Cardio), No clicks present (Cardio), No murmurs present (Cardio) and Peripheral pulses 2+ throughout RATE: regular rate RHYTHM: regular rhythm HEART SOUNDS: S1 normal heart sound present and S2 normal heart sound present PERIPHERAL PULSES: Peripheral pulses 2+ throughout GI: COMMON NORMALS: Normal to inspection, nondistended, normoactive bowel sounds present, Soft to palpation, non-tender and no masses PALPATION: Yes Soft to palpation : COMMON NORMALS: Yes no CVA tenderness BLADDER/KIDNEY EXAM: Yes no CVA tenderness Back/Pelvis: COMMON NORMALS: no CVA tenderness Extremity: NARRATIVE EXTREMITY EXAM: Left ankle?no visible deformity or ecchymosis seen. swelling around lateral malleolus. Tender to palpation over lateral malleolus. Neurovascular intact with pedal pulse 2+. Left knee and left hip had no visible deformity, ecchymosis or swelling. She did have some mild tenderness upon palpation of the lateral hip and over the patella of left knee. Neuro: COMMON NORMALS: patient oriented x3 and moves all extremities SENSORIUM/ORIENTATION: Yes alert Skin: GENERAL SKIN EXAM: dry skin Course Vital Signs: Vital signs: Vital Signs Pulse Rate 77 12/26/20 17:57 Respiratory Rate 16 12/26/20 17:57 Blood Pressure 111/86 12/26/20 17:57 Pulse Oximetry 97 12/26/20 17:57 MDM - Extremity (Nontraumatic) MDM Narrative: Medical decision making narrative: Patient is a 65-year-old female comes to the ED after having a fall. Patient was sitting on toilet and fell. She is complaining of having left ankle swelling and pain, left knee and left hip pain. Patient was also unable to tell me if she hit her head or not and states she cannot remember. Exam findings show left ankle swelling and tenderness. CT of head showed no acute findings, left ankle x-ray showed ankle effusion but no acute fractures, left knee and left hip x-rays showed no acute fractures. Patient was diagnosed with ankle sprain and ankle effusion due to fall. Return to ED precautions given. Follow-up with PCP in 7 to 10 days for reevaluation. Rest ice and elevate left ankle. Patient understood and agreed with plan. Imaging Data^: CT Head: Attestation: I personally reviewed and interpreted this imaging study as follows: Radiologist's impression: [employer] [address] [address] Scan Report Signed Patient: Lorena Murray Unit #: [id number] : 1955 Age/Sex: 65 / F ADM Date: 12/26/20 Loc: ER Room/Bed: Attending Dr: Ordering Provider/Ordering MD: Fermín Banks Date of Service: 12/26/20 Procedure(s): CT head wo con* [id number] Accession Number(s): [id number] Report Number: [id number] PROCEDURE INFORMATION: Exam: CT Head Without Contrast Exam date and time: 12/26/2020 3:07 PM Age: 65 years old Clinical indication: Injury or trauma; Fall; Blunt trauma (contusions or hematomas); Additional info: Fall-unsure if she hit head TECHNIQUE: Imaging protocol: Computed tomography of the head without contrast. Radiation optimization: All CT scans at this facility use at least one of these dose optimization techniques: automated exposure control; mA and/or kV adjustment per patient size (includes targeted exams where dose is matched to clinical indication); or iterative reconstruction. COMPARISON: CT head wo con* [id number] 10/14/2014 6:22 AM RADIATION DOSE METRICS: Total DLP (mGy-cm): 1029.88 FINDINGS: Brain: There is mild diffuse cerebral atrophy present, consistent with this patient's age. Periventricular and subcortical white matter low densities are present which at this age likely represent microvascular ischemic change. No evidence for large acute ischemic infarction. Please note acute ischemia can be occult by head CT. Cerebral ventricles: No ventriculomegaly. Bones/joints: Unremarkable. No acute fracture. Paranasal sinuses: There is a mucous retention cyst versus polyp in the left maxillary sinus. Mastoid air cells: Visualized mastoid air cells are well aerated. Vasculature: Calcified plaque is present within the intracranial vasculature. Soft tissues: Unremarkable. CT/CT head wo con* [id number] IMPRESSION: There are senescent changes of the brain as described above. No evidence for large acute ischemic infarction or acute intracranial injury. Radiation Dose CTDIVOL = (mGy): DLP = 1029.88 (mGy-cm) Dictated By: Alka Tai MD Signed By: Alka Tai MD Signed Date/Time: 12/26/20 1543 DD/ 1542 Xray Ortho: Attestation: I personally reviewed and interpreted this imaging study as follows: Radiologist's impression: [employer] [address] [address] XRay Report Signed Patient: Lorena Murray Unit #: [id number] : 1955 Age/Sex: 65 / F ADM Date: 12/26/20 Loc: ER Room/Bed: Attending Dr: Ordering Provider/Ordering MD: Fermín Banks Date of Service: 12/26/20 Procedure(s): XR knee LT 3V* [id number] Accession Number(s): [id number] Report Number: [id number] PROCEDURE INFORMATION: Exam: XR Left Knee Exam date and time: 12/26/2020 2:47 PM Age: 65 years old Clinical indication: Injury or trauma; Fall; Blunt trauma; Knee; Left; Injury date: 2-3 days; Additional info: Fall injury TECHNIQUE: Imaging protocol: XR Left knee. Views: 3 views. COMPARISON: CR XR knee LT 3V* [id number] 09/24/2020 7:56 PM FINDINGS: Bones/joints: There are small marginal osteophytes across the patellofemoral joint. Soft tissues: Normal. XR/XR knee LT 3V* [id number] IMPRESSION: There are degenerative changes across the patellofemoral joint. No evidence for acute fracture. Dictated By: Alka Tai MD Signed By: Alka Tai MD Signed Date/Time: 12/26/20 1535 DD/ [address] [address] XRay Report Signed Patient: Lorena Murray Unit #: [id number] : 1955 Age/Sex: 65 / F ADM Date: 12/26/20 Loc: ER Room/Bed: Attending Dr: Ordering Provider/Ordering MD: Fermín Banks Date of Service: 12/26/20 Procedure(s): XR hip LT 2-3V wo/w pel* [id number] Accession Number(s): [id number] Report Number: [id number] PROCEDURE INFORMATION: Exam: XR Left Hip with Pelvis when Performed Exam date and time: 12/26/2020 2:48 PM Age: 65 years old Clinical indication: Injury or trauma; Fall; Blunt trauma (contusions or hematomas); Left; Hip; Injury date: 2-3 days; Prior surgery; Surgery date: 6+ months; Additional info: Fall injury TECHNIQUE: Imaging protocol: XR Left hip with pelvis when performed. Views: 2 or 3 views. COMPARISON: CR XR hip LT 2-3V wo/w pel* [id number] 09/24/2020 5:18 PM FINDINGS: Tubes, catheters and devices: Prosthetic femoral head. Prosthesis appears intact without obvious complication. Bones/joints: Unremarkable. No acute fracture. Soft tissues: Unremarkable. XR/XR hip LT 2-3V wo/w pel* [id number] IMPRESSION: No evidence for acute fracture. Dictated By: Alka Tai MD Signed By: Alka Tai MD Signed Date/Time: 12/26/20 1534 DD/ [address] [address] XRay Report Signed Patient: Lorena Murray Unit #: [id number] : 1955 Age/Sex: 65 / F ADM Date: 12/26/20 Loc: ER Room/Bed: Attending Dr: Ordering Provider/Ordering MD: Fremín Banks Date of Service: 12/26/20 Procedure(s): XR ankle LT min 3V* [id number] Accession Number(s): [id number] Report Number: [id number] PROCEDURE INFORMATION: Exam: XR Left Ankle Exam date and time: 12/26/2020 2:15 PM Age: 65 years old Clinical indication: Pain; Ankle; Left; Additional info: Ankle injury TECHNIQUE: Imaging protocol: XR Left ankle. Views: 3 or more views. COMPARISON: CR Ankle 3 views, LEFT* [id number] 03/23/2014 9:44 PM FINDINGS: Bones/joints: There is an ankle joint effusion. Soft tissues: There is edema and hematoma in the soft tissues surrounding the ankle. XR/XR ankle LT min 3V* [id number] IMPRESSION: 1. There is edema and hematoma in the soft tissues surrounding the ankle. 2. There is an ankle joint effusion. Dictated By: Alka Tai MD Signed By: Alka Tai MD Signed Date/Time: 12/26/201518 DD/ 16 Discharge Plan Discharge Patient Disposition: Home Clinical Impression: Fall as cause of accidental injury at home as place of occurrence Qualifiers: Encounter type: initial encounter Qualified Code(s): W19.XXXA - Unspecified fall, initial encounter Sprained ankle Qualifiers: Encounter type: initial encounter Involved ligament of ankle: anterior talofibular ligament Laterality: left Qualified Code(s): S93.492A - Sprain of other ligament of left ankle, initial encounter Ankle joint effusion Qualifiers: Laterality: left Qualified Code(s): M25.472 - Effusion, left ankle Condition: Stable Prescriptions: New promethazine 25 mg suppository 25 mg AK Q6H PRN (Reason: nausea and vomiting) Qty: 12 RF: 0 No Action magnesium oxide 400 mg (241.3 mg magnesium) tablet 400 mg PO BEDTIME RF: 0 amlodipine 5 mg tablet 5 mg PO QAM RF: 0 potassium chloride 10 mEq tablet extended release 10 meq PO BEDTIME RF: 0 levothyroxine [Synthroid] 112 mcg tablet 112 mcg PO QAM RF: 0 montelukast 10 mg tablet 10 mg PO DAILY PRN (Reason: unknown) RF: 0 dicyclomine 10 mg capsule 10 mg PO QID RF: 0 nicotine 21 mg/24 hr patch 24 hour 1 patch transdermal DAILY RF: 0 gabapentin 800 mg tablet 800 mg PO TID RF: 0 metoprolol tartrate 25 mg tablet 25 mg PO Q12H RF: 0 furosemide 40 mg tablet 20 mg PO DAILY PRN (Reason: Edema) RF: 0 garlic 1,000 mg capsule 1,000 mg PO QAM RF: 0 red yeast rice 600 mg tablet 600 mg PO BID RF: 0 mecobalamin (vitamin B12) 1,000 mcg tablet,chewable 1,000 mcg PO QAM RF: 0 aspirin [Adult Aspirin Regimen] 81 mg tablet,delayed release (DR/EC) 81 mg PO QAM RF: 0 diphenhydramine HCl [Allergy Relief(diphenhydramin)] 25 mg tablet 25 mg PO QID PRN (Reason: Allergy Symptoms) RF: 0 loperamide [Imodium A-D] 2 mg capsule 2 mg PO QID PRN (Reason: Diarrhea) RF: 0 alprazolam [Xanax] 2 mg tablet 2 mg PO TID PRN (Reason: unknown) RF: 0 albuterol sulfate [ProAir HFA] 90 mcg/actuation HFA aerosol inhaler 2 puff inhalation QID PRN (Reason: Shortness Of Breath) RF: 0 metronidazole 0.75 % cream 1 applic topical BID Qty: 45 RF: 3 pantoprazole 40 mg tablet,delayed release (DR/EC) 40 mg PO BID MDD 2 30 Days Qty: 60 RF: 3 ibuprofen 800 mg Tablet 800 mg PO BID RF: 0 citalopram 20 mg tablet 20 mg PO DAILY RF: 0 triamcinolone acetonide 0.025 % Cream 1 applic TOPICAL BID PRN (Reason: unknown) RF: 0 ascorbic acid (vitamin C) 500 mg Tablet,Chewable 1,000 mg PO DAILY@12 RF: 0 omega 4-xwo-lmq-fish oil 500-1,000 mg Capsule 1 cap PO BEDTIME RF: 0 Anjt-Ocea-Wymid (vit C-biotin) 50 mg -1,250 mcg Tablet,Chewable 2 tab PO DAILY RF: 0 Probichew 21 billion cell - 1 gram Tablet,Chewable 2 tab PO QAM RF: 0 Elderberry Gummy 1 cap PO DAILY@12 RF: 0 Discharge Orders: Discharge ED (Routine); Ordered 12/26/20 Ordered By: Fermín Banks Referrals: Dany Andino MD [Primary Care Provider] - Discharge Diet: Regular Discharge Activity: Increase activity as tolerated and Use walker/crutches as instructed Patient Instructions: Ankle Sprain (ED) Activity Restrictions/Additional Instructions: Follow-up with medical provider as directed in 5-7 days. Continue to use your walker to help ambulate. Rest, ice, elevate and wrap ankle with Carl wrap. take medications as prescribed. Return to the ER or your medical provider if condition worsens. Please read and understand discharge instructions. If any questions, please ask. Coding Level of Care Code ED [facility] Fwd Exam Comprehensive
--- NOTE | 2020-12-26 14:39 | XRR_ITS ---
PROCEDURE INFORMATION: Exam: XR Left Knee Exam date and time: 12/26/2020 2:47 PM Age: 65 years old Clinical indication: Injury or trauma; Fall; Blunt trauma; Knee; Left; Injury date: 2-3 days; Additional info: Fall injury TECHNIQUE: Imaging protocol: XR Left knee. Views: 3 views. COMPARISON: CR XR knee LT 3V* [id number] 09/24/2020 7:56 PM FINDINGS: Bones/joints: There are small marginal osteophytes across the patellofemoral joint. Soft tissues: Normal. XR/XR knee LT 3V* [id number] IMPRESSION: There are degenerative changes across the patellofemoral joint. No evidence for acute fracture.
--- NOTE | 2020-12-26 14:39 | XRR_ITS ---
PROCEDURE INFORMATION: Exam: XR Left Hip with Pelvis when Performed Exam date and time: 12/26/2020 2:48 PM Age: 65 years old Clinical indication: Injury or trauma; Fall; Blunt trauma (contusions or hematomas); Left; Hip; Injury date: 2-3 days; Prior surgery; Surgery date: 6+ months; Additional info: Fall injury TECHNIQUE: Imaging protocol: XR Left hip with pelvis when performed. Views: 2 or 3 views. COMPARISON: CR XR hip LT 2-3V wo/w pel* [id number] 09/24/2020 5:18 PM FINDINGS: Tubes, catheters and devices: Prosthetic femoral head. Prosthesis appears intact without obvious complication. Bones/joints: Unremarkable. No acute fracture. Soft tissues: Unremarkable. XR/XR hip LT 2-3V wo/w pel* [id number] IMPRESSION: No evidence for acute fracture.
--- NOTE | 2020-12-26 14:42 | CTR_ITS ---
PROCEDURE INFORMATION: Exam: CT Head Without Contrast Exam date and time: 12/26/2020 3:07 PM Age: 65 years old Clinical indication: Injury or trauma; Fall; Blunt trauma (contusions or hematomas); Additional info: Fall-unsure if she hit head TECHNIQUE: Imaging protocol: Computed tomography of the head without contrast. Radiation optimization: All CT scans at this facility use at least one of these dose optimization techniques: automated exposure control; mA and/or kV adjustment per patient size (includes targeted exams where dose is matched to clinical indication); or iterative reconstruction. COMPARISON: CT head wo con* [id number] 10/14/2014 6:22 AM RADIATION DOSE METRICS: Total DLP (mGy-cm): 1029.88 FINDINGS: Brain: There is mild diffuse cerebral atrophy present, consistent with this patient's age. Periventricular and subcortical white matter low densities are present which at this age likely represent microvascular ischemic change. No evidence for large acute ischemic infarction. Please note acute ischemia can be occult by head CT. Cerebral ventricles: No ventriculomegaly. Bones/joints: Unremarkable. No acute fracture. Paranasal sinuses: There is a mucous retention cyst versus polyp in the left maxillary sinus. Mastoid air cells: Visualized mastoid air cells are well aerated. Vasculature: Calcified plaque is present within the intracranial vasculature. Soft tissues: Unremarkable. CT/CT head wo con* [id number] IMPRESSION: There are senescent changes of the brain as described above. No evidence for large acute ischemic infarction or acute intracranial injury. Radiation Dose CTDIVOL = (mGy): DLP = 1029.88 (mGy-cm)
[2020-12-26 15:42] VITALS: RESP 16; O2SAT 97
[2020-12-26] MEDS: morphine 4 mg/mL SDV 1 mL IM ×2 (15:42→17:49)
[2020-12-26] MEDS: ondansetron 2 mg/ML SDV 2 mL 4 MG IM (15:49)
--- NOTE | 2020-12-26 16:08 | PC.NURSE ---
Initial orders were for IVP on MS and Zofran, orders were given as IM. Spoke with STUDENT SERVICES ADVISOR and he changed the order to IM. IM shots were given and not IVP.
[2020-12-26 17:49] VITALS: RESP 16; O2SAT 96
[2020-12-26 17:57] VITALS: BP 111/86; PULSE 77; RESP 16; O2SAT 97
== END 2020-12-26 20:18 | disposition home or self-care (01) ==
PROVIDERS: Emergency Provider Physician Assistant; PCP Family Medicine
DX: S93.492A Sprain of other ligament of left ankle, initial encounter (principal); M25.472 Effusion, left ankle; W18.11XA Fall from or off toilet without subsequent striking against object, initial encounter; Z79.82 Long term (current) use of aspirin; Z86.19 Personal history of other infectious and parasitic diseases; I10 Essential (primary) hypertension; F17.210 Nicotine dependence, cigarettes, uncomplicated
CPT/HCPCS: 70450; 73502; 73562; 73610; 96372; 99283; J2270; J2405

== ENCOUNTER 2021-01-08 16:19 | Emergency (ER) | payer MEDICARE, MEDICAID, SELFPAY ==
[2021-01-08 16:59] VITALS: BP 151/85; PULSE 75; RESP 14; TEMP 37.1; O2SAT 97; BMI 30.9
--- NOTE | 2021-01-08 17:26 | W.ED.EXTPRO ---
Documented by User: Cynthia Shipley MD 01/08/21 20:07 HPI - Extremity Problem General: Chief complaint: Extremity Problem,Nontraumatic Stated complaint: LLE INFECTION Time Seen by Provider: 01/08/21 17:17 Source: patient Mode of arrival: ambulatory Limitations: no limitations History of Present Illness: HPI Narrative: 65-year-old female with worsening left ankle and foot swelling, pain, redness. She was seen here on 12/26/20 diagnosed with ankle sprain, ankle effusion. She says that a few days later she noticed a sore, and it is first aggressively gotten worse. She does have subjective fever and chills, generalized body ache. She denies any subsequent trauma. She has no previous diagnosis of diabetes. She is requesting a [employer] [facility], and [facility] pain medicine x10,000 MD Complaint: extremity pain, extremity swelling and joint swelling Associated symptoms: Reports fever(s) and rash Review of Systems General: Reports: 10 or more systems reviewed and unremarkable except in HPI and below Const: Reports: fever(s), chills and body aches Eyes: Denies: change in vision, blurry vision or blind spots Card: Reports: edema and swelling of feet/ankles; Denies: lightheadedness Resp: Denies: dyspnea or productive cough GI: Denies: abdominal pain, nausea or vomiting : Denies: difficulty voiding, dysuria or urinary frequency Musc: Reports: neck pain, back pain, extremity pain, extremity swelling, joint pain, joint swelling, joint redness, joint warmth, joint stiffness, limited range of motion, muscle cramps and muscle weakness Skin/Breast: Reports: rash, erythema, skin swelling, sores and non-healing lesions Neuro: Reports: numbness in extremities, weakness in extremities, lack of coordination, difficulty walking and frequent falls Psych: Reports: anxiety PFSH ED PFSH: Medical History Chronic UTI Hepatitis C Hypertension Panic disorder Family History Father CAD (coronary artery disease) Psychiatric illness Mother CAD (coronary artery disease) Hypertension Psychiatric illness Grandmother Cancer Psychiatric illness Brother Cancer Psychiatric illness Social History Smoking and tobacco status: current some day smoker Second hand smoke exposure: Yes Alcohol intake: former Physical Exam Const: COMMON NORMALS: patient oriented x3 GENERAL APPEARANCE: anxious; not in distress and not ill appearing HENMT: COMMON NORMALS: not normocephalic, head/scalp not atraumatic and not EAC's normal HEAD & SCALP: not normocephalic and not atraumatic EXTERNAL AUDITORY CANAL: EAC(s) not normal Eye: COMMON NORMALS: Equal, round and reactive pupils present, EOMs intact bilaterally, conjunctivae normal and no scleral icterus CONJUNCTIVA: Yes conjunctivae normal PUPIL: Yes Equal, round and reactive pupils present Chest: COMMONS NORMALS: normal inspection of the chest and normal palpation of entire chest wall Resp: COMMON NORMALS: normal respiratory effort and clear to auscultation bilaterally EFFORT & INSPECTION: Yes able to speak in complete sentences AUSCULTATION: clear to auscultation bilaterally, no crackles, no rales and no rhonchi Extremity: RIGHT LOWER EXTREMITY: Yes foot & digits (Swelling, ecchymosis, erythema of the ankle and foot.) Right ankle: Yes other (2 cm circular shallow ulceration over the lateral malleolus) OTHER: No active bleeding, no discharge or eschar. No streaking or extension of the edema and erythema above the ankle. Neuro: COMMON NORMALS: patient oriented x3, moves all extremities and no focal motor deficits GAIT: Yes Unable to assess gait Psych: COMMON NORMALS: mental status grossly normal ATTITUDE: Yes uncooperative SPEECH: Yes excessive THOUGHT PROCESS: disorganized THOUGHT CONTENT: Yes Normal thought content present ATTENTION/CONCENTRATION: Yes attention grossly intact MEMORY/COGNITION: Yes memory grossly intact and Yes cognition grossly intact INSIGHT: Fair insight present (Psych) JUDGEMENT: Fair judgement present (Psych) Skin: LESIONS: lesion noted 2 cm shallow ulceration left lateral malleolus Course Vital Signs: Vital signs: Vital Signs Temperature 98.7 F 01/08/21 16:59 Pulse Rate 70 01/08/21 17:48 Respiratory Rate 15 01/08/21 18:28 Blood Pressure 151/85 01/08/21 16:59 Pulse Oximetry 97 01/08/21 16:59 MDM - Extremity (Nontraumatic) Lab Data: Labs: Lab Results 01/08/21 01/08/21 Range/Units 17:25 17:25 WBC 5.0 (4.0-10.0) 10^3/ uL RBC 5.03 (4.1-5.3) 10^6/u L Hgb 13.7 (11.5-15.3) g/dL Hct 42.9 (37.0-47.0) % MCV 85.3 (81-99) fL MCH 27.2 L (28.0-34.0) pg MCHC 31.9 (30.0-36.0) g/dL RDW 13.4 (12.1-15.1) % Plt Count 114 L (130-400) 10^3/c mm MPV 11.0 H (7.4-10.4) fL Neut % (Auto) 62.7 % Lymph % (Auto) 30.1 % [place] % (Auto) 6.8 % Eos % (Auto) 0.0 % Baso % (Auto) 0.2 % Neut # (Auto) 3.14 (1.8-7.7) 10^3/u L Lymph # (Auto) 1.5 (0.8-4.8) 10^3/u L [place] # (Auto) 0.3 (0.2-0.9) 10^3/u L Eos # (Auto) 0.0 (0.0-0.8) 10^3/u L Baso # (Auto) 0.0 (0.0-0.1) 10^3/u L Nucleated RBC % (a uto) 0 % Nucleated RBCs # 0.0 /100WBC Sodium 139 (136-145) mmol/L Potassium 3.5 (3.5-5.1) mmol/L Chloride 104 (98-107) mmol/L Carbon Dioxide 23 (22-29) mmol/L Anion Gap 15.5 (5-19) BUN 18 (8-23) mg/dL Creatinine 0.6 (0.5-0.9) mg/dL GFR Calculation 100.0 (90-130) mL/min Glucose 142 H (65-115) mg/dL Calculated Osmolal ity 292 (285-295) mOsm/k g Calcium 9.0 (8.5-10.5) mg/dL Total Bilirubin 0.3 (0.15-1.2) mg/dL AST 30 (0-32) U/L ALT 27 (0-33) U/L Alkaline Phosphata se 101 (35-105) IU/L C-Reactive Protein 4.0 (0.0-4.9) mg/L Total Protein 8.0 (6.6-8.7) g/dL Albumin 4.0 (3.5-5.2) g/dL Globulin 4.0 (1.3-4.6) g/dL Discharge Plan Discharge Patient Disposition: Home Clinical Impression: Ankle swelling Ankle sprain Qualifiers: Encounter type: initial encounter Involved ligament of ankle: unspecified ligament Laterality: left Qualified Code(s): S93.402A - Sprain of unspecified ligament of left ankle, initial encounter Condition: Stable Prescriptions: [place] 5-325 mg tablet 1 tab PO Q6H PRN (Reason: pain) Qty: 14 RF: 0 Keflex 500 mg capsule 500 mg PO Q6H 7 Days Qty: 28 RF: 0 No Action magnesium oxide 400 mg (241.3 mg magnesium) tablet 400 mg PO BEDTIME RF: 0 amlodipine 5 mg tablet 5 mg PO DAILY RF: 0 potassium chloride 10 mEq tablet extended release 10 meq PO BEDTIME RF: 0 levothyroxine [Synthroid] 112 mcg tablet 112 mcg PO DAILY@0900 RF: 0 montelukast 10 mg tablet 10 mg PO DAILY PRN (Reason: unknown) RF: 0 nicotine 21 mg/24 hr patch 24 hour 1 patch transdermal DAILY RF: 0 gabapentin 800 mg tablet 800 mg PO TID RF: 0 metoprolol tartrate 25 mg tablet 25 mg PO Q12H RF: 0 furosemide 40 mg tablet 20 mg PO DAILY PRN (Reason: Edema) RF: 0 garlic 1,000 mg capsule 1,000 mg PO DAILY RF: 0 red yeast rice 600 mg tablet 600 mg PO BID RF: 0 mecobalamin (vitamin B12) 1,000 mcg tablet,chewable 1,000 mcg PO DAILY RF: 0 aspirin [Adult Aspirin Regimen] 81 mg tablet,delayed release (DR/EC) 81 mg PO DAILY RF: 0 diphenhydramine HCl [Allergy Relief(diphenhydramin)] 25 mg tablet 25 mg PO QID PRN (Reason: Allergy Symptoms) RF: 0 loperamide [Imodium A-D] 2 mg capsule 2 mg PO QID PRN (Reason: Diarrhea) RF: 0 alprazolam [Xanax] 2 mg tablet 2 mg PO TID PRN (Reason: unknown) RF: 0 albuterol sulfate [ProAir HFA] 90 mcg/actuation HFA aerosol inhaler 2 puff inhalation QID PRN (Reason: Shortness Of Breath) RF: 0 metronidazole 0.75 % cream 1 applic topical BID Qty: 45 RF: 3 pantoprazole 40 mg tablet,delayed release (DR/EC) 40 mg PO BID MDD 2 30 Days Qty: 60 RF: 3 promethazine 25 mg suppository 25 mg FL Q6H PRN (Reason: nausea and vomiting) Qty: 12 RF: 0 ibuprofen 800 mg Tablet 800 mg PO BID RF: 0 triamcinolone acetonide 0.025 % Cream 1 applic TOPICAL BID PRN (Reason: unknown) RF: 0 ascorbic acid (vitamin C) 500 mg Tablet,Chewable 1,000 mg PO DAILY@12 RF: 0 omega 4-jab-zaa-fish oil 500-1,000 mg Capsule 1 cap PO BEDTIME RF: 0 Qtiy-Ovlo-Ksoaa (vit C-biotin) 50 mg -1,250 mcg Tablet,Chewable 2 tab PO DAILY RF: 0 Probichew 21 billion cell - 1 gram Tablet,Chewable 2 tab PO DAILY RF: 0 Elderberry Gummy 1 cap PO DAILY@12 RF: 0 clindamycin HCl 300 mg capsule 300 mg PO TID RF: 0 carbamazepine 200 mg tablet 200 mg PO BID RF: 0 betamethasone valerate 0.1 % cream See Rx Instructions .ROUTE .COMPLEX RF: 0 Discharge Orders: Discharge ED (Routine); Ordered 01/08/21 Ordered By: Mario Kulkarni Referrals: Chris Meza DPM [Physician] - 1-3 days Dany Andino MD [Primary Care Provider] - Discharge Diet: Advance as tolerated Discharge Activity: Resume usual activity Patient Instructions: Ankle Sprain (ED), Opioid Safety Coding Level of Care Code ED Electrical Assistant for Chg Fwd Exam Comprehensive Documented by User: Mario Kulkarni MD 01/08/21 18:47 HPI - Extremity Problem General: Chief complaint: Extremity Problem,Nontraumatic Stated complaint: LLE INFECTION Time Seen by Provider: 01/08/21 17:17 [facility] ED PFSH: Medical History Chronic UTI Hepatitis C Hypertension Panic disorder Family History Father CAD (coronary artery disease) Psychiatric illness Mother CAD (coronary artery disease) Hypertension Psychiatric illness Grandmother Cancer Psychiatric illness Brother Cancer Psychiatric illness Social History Smoking and tobacco status: current some day smoker Second hand smoke exposure: Yes Alcohol intake: former Course Vital Signs: Vital signs: Vital Signs Temperature 98.7 F 01/08/21 16:59 Pulse Rate 70 01/08/21 17:48 Respiratory Rate 15 01/08/21 18:28 Blood Pressure 151/85 01/08/21 16:59 Pulse Oximetry 97 01/08/21 16:59 MDM - Extremity (Nontraumatic) MDM Narrative: Medical decision making narrative: Patient presents here with ankle pain x-ray shows no signs of infection. She does have some soft tissue swelling. Patient was very argumentative here and demanded pain medicine. Why prescribe her [place] 5 mg she was very upset stating she needed at least 10 mg tablets and probably more. I informed her she is to take the 5 mg and follow-up with Dr. Meza. Lab Data: Labs: Lab Results 01/08/21 01/08/21 Range/Units 17:25 17:25 WBC 5.0 (4.0-10.0) 10^3/ uL RBC 5.03 (4.1-5.3) 10^6/u L Hgb 13.7 (11.5-15.3) g/dL Hct 42.9 (37.0-47.0) % MCV 85.3 (81-99) fL MCH 27.2 L (28.0-34.0) pg MCHC 31.9 (30.0-36.0) g/dL RDW 13.4 (12.1-15.1) % Plt Count 114 L (130-400) 10^3/c mm MPV 11.0 H (7.4-10.4) fL Neut % (Auto) 62.7 % Lymph % (Auto) 30.1 % [place] % (Auto) 6.8 % Eos % (Auto) 0.0 % Baso % (Auto) 0.2 % Neut # (Auto) 3.14 (1.8-7.7) 10^3/u L Lymph # (Auto) 1.5 (0.8-4.8) 10^3/u L [place] # (Auto) 0.3 (0.2-0.9) 10^3/u L Eos # (Auto) 0.0 (0.0-0.8) 10^3/u L Baso # (Auto) 0.0 (0.0-0.1) 10^3/u L Nucleated RBC % (a uto) 0 % Nucleated RBCs # 0.0 /100WBC Sodium 139 (136-145) mmol/L Potassium 3.5 (3.5-5.1) mmol/L Chloride 104 (98-107) mmol/L Carbon Dioxide 23 (22-29) mmol/L Anion Gap 15.5 (5-19) BUN 18 (8-23) mg/dL Creatinine 0.6 (0.5-0.9) mg/dL GFR Calculation 100.0 (90-130) mL/min Glucose 142 H (65-115) mg/dL Calculated Osmolal ity 292 (285-295) mOsm/k g Calcium 9.0 (8.5-10.5) mg/dL Total Bilirubin 0.3 (0.15-1.2) mg/dL AST 30 (0-32) U/L ALT 27 (0-33) U/L Alkaline Phosphata se 101 (35-105) IU/L C-Reactive Protein 4.0 (0.0-4.9) mg/L Total Protein 8.0 (6.6-8.7) g/dL Albumin 4.0 (3.5-5.2) g/dL Globulin 4.0 (1.3-4.6) g/dL Imaging Data^: Xray Ortho: Attestation: I personally reviewed and interpreted this imaging study as follows: Radiologist's impression: [facility] [address] [address] XRay Report Signed Patient: Lorena Murray Unit #: [id number] : 1955 Age/Sex: 65 / F ADM Date: 01/08/21 Loc: ER Room/Bed: Attending Dr: Ordering Provider/Ordering MD: Cynthia Shipley MD Date of Service: 01/08/21 Procedure(s): XR ankle LT 2V 32068 Accession Number(s): [id number] Report Number: [id number] PROCEDURE INFORMATION: Exam: XR Left Ankle Exam date and time: 01/08/2021 5:39 PM Age: 65 years old Clinical indication: Pain; Ankle; Left; Additional info: Subacute injury, ulcer TECHNIQUE: Imaging protocol: XR Left ankle. Views: 1 or 2 views. COMPARISON: CR XR ankle LT min 3V* [id number] 12/26/2020 2:12 PM FINDINGS: Bones/joints: Unremarkable. No fractures. Unremarkable joint alignment. No erosion. No periosteal reaction. Soft tissues: Diffuse soft tissue swelling. No soft tissue gas. XR/XR ankle LT 2V [id number] IMPRESSION: 1. No osseous abnormality of left ankle. 2. No change from prior on 12/26/2020. Nonspecific soft tissue swelling. Dictated By: Dave Dodson Discharge Plan Discharge Patient Disposition: Home Clinical Impression: Ankle swelling Ankle sprain Qualifiers: Encounter type: initial encounter Involved ligament of ankle: unspecified ligament Laterality: left Qualified Code(s): S93.402A - Sprain of unspecified ligament of left ankle, initial encounter Condition: Stable Prescriptions: [place] 5-325 mg tablet 1 tab PO Q6H PRN (Reason: pain) Qty: 14 RF: 0 Keflex 500 mg capsule 500 mg PO Q6H 7 Days Qty: 28 RF: 0 No Action magnesium oxide 400 mg (241.3 mg magnesium) tablet 400 mg PO BEDTIME RF: 0 amlodipine 5 mg tablet 5 mg PO DAILY RF: 0 potassium chloride 10 mEq tablet extended release 10 meq PO BEDTIME RF: 0 levothyroxine [Synthroid] 112 mcg tablet 112 mcg PO DAILY@0900 RF: 0 montelukast 10 mg tablet 10 mg PO DAILY PRN (Reason: unknown) RF: 0 nicotine 21 mg/24 hr patch 24 hour 1 patch transdermal DAILY RF: 0 gabapentin 800 mg tablet 800 mg PO TID RF: 0 metoprolol tartrate 25 mg tablet 25 mg PO Q12H RF: 0 furosemide 40 mg tablet 20 mg PO DAILY PRN (Reason: Edema) RF: 0 garlic 1,000 mg capsule 1,000 mg PO DAILY RF: 0 red yeast rice 600 mg tablet 600 mg PO BID RF: 0 mecobalamin (vitamin B12) 1,000 mcg tablet,chewable 1,000 mcg PO DAILY RF: 0 aspirin [Adult Aspirin Regimen] 81 mg tablet,delayed release (DR/EC) 81 mg PO DAILY RF: 0 diphenhydramine HCl [Allergy Relief(diphenhydramin)] 25 mg tablet 25 mg PO QID PRN (Reason: Allergy Symptoms) RF: 0 loperamide [Imodium A-D] 2 mg capsule 2 mg PO QID PRN (Reason: Diarrhea) RF: 0 alprazolam [Xanax] 2 mg tablet 2 mg PO TID PRN (Reason: unknown) RF: 0 albuterol sulfate [ProAir HFA] 90 mcg/actuation HFA aerosol inhaler 2 puff inhalation QID PRN (Reason: Shortness Of Breath) RF: 0 metronidazole 0.75 % cream 1 applic topical BID Qty: 45 RF: 3 pantoprazole 40 mg tablet,delayed release (DR/EC) 40 mg PO BID MDD 2 30 Days Qty: 60 RF: 3 promethazine 25 mg suppository 25 mg FL Q6H PRN (Reason: nausea and vomiting) Qty: 12 RF: 0 ibuprofen 800 mg Tablet 800 mg PO BID RF: 0 triamcinolone acetonide 0.025 % Cream 1 applic TOPICAL BID PRN (Reason: unknown) RF: 0 ascorbic acid (vitamin C) 500 mg Tablet,Chewable 1,000 mg PO DAILY@12 RF: 0 omega 2-sqf-ldg-fish oil 500-1,000 mg Capsule 1 cap PO BEDTIME RF: 0 Xcba-Iofu-Darra (vit C-biotin) 50 mg -1,250 mcg Tablet,Chewable 2 tab PO DAILY RF: 0 Probichew 21 billion cell - 1 gram Tablet,Chewable 2 tab PO DAILY RF: 0 Elderberry Gummy 1 cap PO DAILY@12 RF: 0 clindamycin HCl 300 mg capsule 300 mg PO TID RF: 0 carbamazepine 200 mg tablet 200 mg PO BID RF: 0 betamethasone valerate 0.1 % cream See Rx Instructions .ROUTE .COMPLEX RF: 0 Discharge Orders: Discharge ED (Routine); Ordered 01/08/21 Ordered By: Mario Kulkarni Referrals: Chris Meza DPM [Physician] - 1-3 days Dany Andino MD [Primary Care Provider] - Discharge Diet: Advance as tolerated Discharge Activity: Resume usual activity Patient Instructions: Ankle Sprain (ED), Opioid Safety Coding Level of Care Code ED Electrical Assistant for Chg Fwd Exam Comprehensive
--- NOTE | 2021-01-08 17:36 | XRR_ITS ---
PROCEDURE INFORMATION: Exam: XR Left Ankle Exam date and time: 01/08/2021 5:39 PM Age: 65 years old Clinical indication: Pain; Ankle; Left; Additional info: Subacute injury, ulcer TECHNIQUE: Imaging protocol: XR Left ankle. Views: 1 or 2 views. COMPARISON: CR XR ankle LT min 3V* [id number] 12/26/2020 2:12 PM FINDINGS: Bones/joints: Unremarkable. No fractures. Unremarkable joint alignment. No erosion. No periosteal reaction. Soft tissues: Diffuse soft tissue swelling. No soft tissue gas. XR/XR ankle LT 2V [id number] IMPRESSION: 1. No osseous abnormality of left ankle. 2. No change from prior on 12/26/2020. Nonspecific soft tissue swelling.
[2021-01-08 17:47] VITALS: RESP 15
[2021-01-08 17:48] VITALS: PULSE 70
[2021-01-08 17:48] LABS: Basophils % 0.2 %; Hematocrit 42.9 % (37.0-47.0); Hemoglobin 13.7 g/dL (11.5-15.3); Lymphocytes # 1.5 10^3/uL (0.8-4.8); Lymphocytes % 30.1 %; Mean Corpuscular HGB Conc 31.9 g/dL (30.0-36.0); Mean Corpuscular Hemoglobin 27.2 pg (28.0-34.0); Mean Corpuscular Volume 85.3 fL (81-99); Monocytes # 0.3 10^3/uL (0.2-0.9); Monocytes % 6.8 %; Neutrophils # 3.14 10^3/uL (1.8-7.7); Neutrophils % 62.7 %; Nucleated Red Blood Cells % 0 %; Platelet Count 114 10^3/cmm (130-400); Red Blood Count 5.03 10^6/uL (4.1-5.3); Red Cell Distribution Width 13.4 % (12.1-15.1)
[2021-01-08] MEDS: fentaNYL 50 mcg/mL INJ 2mL 75 MCG IVP (17:54)
[2021-01-08] MEDS: cefTRIAXone 1,000 MG in sodium chloride 0.9% (plus) 50 ML 100 MG IV (17:54)
[2021-01-08 18:00] LABS: Alanine Aminotransferase 27 U/L (0-33); Alkaline Phosphatase 101 IU/L (35-105); Anion Gap 15.5 (5-19); Aspartate Amino Transferase 30 U/L (0-32); Blood Urea Nitrogen 18 mg/dL (8-23); Carbon Dioxide 23 mmol/L (22-29); Chloride 104 mmol/L (98-107); Glucose 142 mg/dL (65-115); Osmolality Calculated 292 mOsm/kg (285-295); Potassium 3.5 mmol/L (3.5-5.1); Sodium 139 mmol/L (136-145); Total Bilirubin 0.3 mg/dL (0.15-1.2)
[2021-01-08 18:28] VITALS: RESP 15
--- NOTE | 2021-01-10 12:11 | DCPLANNER ---
certified dietary manager had message to schedule a follow up appointment for patient with ortho. certified dietary manager called the ortho clinic, spoke with Pauline, gave clinic patients information. certified dietary manager was told that patients information would be printed and reviewed. Clinic will call patient with appointment information.
--- NOTE | 2021-01-13 07:59 | DCPLANNER ---
Patient has a follow up appointment scheduled for Sunday, January 17, 2021 at 3:[address] Meza at [facility]. Clinic will call patient with appointment information.
--- NOTE | 2021-01-28 14:25 | DCPLANNER ---
Patient had a follow up appointment scheduled for 01.17.[address] eMza at [facility] - patient did attend appointment.
== END 2021-01-08 18:28 | disposition home or self-care (01) ==
PROVIDERS: Family Medicine; Emergency Provider Emergency Medicine; PCP Family Medicine
DX: S93.402A Sprain of unspecified ligament of left ankle, initial encounter (principal); M79.89 Other specified soft tissue disorders; Z79.82 Long term (current) use of aspirin; I10 Essential (primary) hypertension; Z86.19 Personal history of other infectious and parasitic diseases; F17.210 Nicotine dependence, cigarettes, uncomplicated; X58.XXXA Exposure to other specified factors, initial encounter
CPT/HCPCS: 73600; 80053; 85025; 86140; 96365; 96375; 99283; J0696; J3010

== ENCOUNTER 2021-01-17 16:19 | Outpatient (CLI) | payer MEDICARE, MEDICAID, SELFPAY | END 2021-01-17 16:20 | disposition home or self-care (01) | LOC: SPT 16:20 | PROVIDERS: PCP Family Medicine; Visit Provider Podiatrist Foot & Ankle Surgery | DX: Z46.89 Encounter for fitting and adjustment of other specified devices (principal); S90.02XD Contusion of left ankle, subsequent encounter; X58.XXXD Exposure to other specified factors, subsequent encounter | CPT/HCPCS: 97760; L4361 ==

== ENCOUNTER 2021-02-02 15:34 | Outpatient (CLI) | payer MEDICARE, MEDICAID, SELFPAY | END 2021-02-02 15:35 | disposition home or self-care (01) | LOC: SPT 15:38 | PROVIDERS: PCP Family Medicine; Visit Provider Podiatrist Foot & Ankle Surgery | DX: Z46.89 Encounter for fitting and adjustment of other specified devices (principal); S90.02XD Contusion of left ankle, subsequent encounter; S93.402D Sprain of unspecified ligament of left ankle, subsequent encounter; X58.XXXD Exposure to other specified factors, subsequent encounter | CPT/HCPCS: 97760; L1902 ==

== ENCOUNTER → 2021-03-29 15:09 | Outpatient (BNVA) | payer MEDICARE, MEDICAID, SELFPAY | PROVIDERS: PCP Family Medicine; Referring Provider Family Medicine; Visit Provider Orthopaedic Surgery | DX: M50.320 Other cervical disc degeneration, mid-cervical region, unspecified level (principal); M48.52XA Collapsed vertebra, not elsewhere classified, cervical region, initial encounter for fracture; M48.56XA Collapsed vertebra, not elsewhere classified, lumbar region, initial encounter for fracture | CPT/HCPCS: 72050 ==

== ENCOUNTER 2021-04-12 12:41 | Outpatient (CLI) | payer MEDICARE, MEDICAID, SELFPAY ==
--- NOTE | 2021-04-12 13:00 | MR_ITS ---
WS: [id number] MRI CERVICAL SPINE NONCONTRAST TECHNIQUE: Sagittal T1, T2 and STIR imaging. Axial T2, gradient, and fiesta imaging. CLINICAL INFORMATION: M54.2 - Cervicalgia COMPARISON: None. FINDINGS: Straightening of the normal cervical lordosis. Normal C1-2 articulation. Disc bulging worse mid cervi matt spine C3-C5. C2-C3: Normal. C3-C4: Mild disc bulging and osteophytic ridging. Mild central canal stenosis. Mild to moderate bilat eral bony foraminal narrowing left greater than right. Mild facet arthropathy. C4-C5: Mild disc osteophyte complex with mild central canal stenosis. Moderate right greater than lef t bony foraminal narrowing. Mild facet arthropathy. C5-C6: Disc osteophyte protrusion with moderate central canal stenosis and slight indentation on the cervical cord. Severe left and moderate right bony foraminal narrowing. Moderate facet arthropathy. C6-C7: Disc osteophyte complex with endplate ridging. Mild central canal stenosis. Moderate bilateral bony foraminal narrowing. C7-T1: No significant disc bulging. Osteophytic ridging. Mild right and no significant left foraminal narrowing. Spinal canal is patent. Retention cyst in the posterior nasopharynx. Visualized brain stem structures: Normal. Prevertebral soft tissues: Normal. MR/MR cervical spin wo con* [id number] IMPRESSION: 1. Straightening of the normal cervical lordosis. Cord signal is normal. 2. Moderate central canal stenosis C5-C6 due to disc osteophyte protrusion and slight indentation on cervical cord. 3. Mild central canal stenosis C3-C4, C4-C5, and C6-C7. 4. Multilevel moderate to severe bony foraminal narrowing worse at left C3-C4, bilateral C4-5, left C5-C6, and bilateral C6-7.
--- NOTE | 2021-04-12 13:45 | MR_ITS ---
WS: [id number] MRI LUMBAR SPINE NONCONTRAST TECHNIQUE: Sagittal T1, T2 and STIR imaging. Axial T1 and T2 imaging. CLINICAL INFORMATION: M54.2 - Cervicalgia COMPARISON: CT September 24, 2020 FINDINGS: Chronic biconcave compression fracture at T12 is unchanged. Mild chronic compression superior endplat es L3 and L4. Scattered incidental benign hemangiomas lower thoracic and lumbar spine. No [place] fractures. L1-L2: Normal. L2-L3: Mild disc bulging with moderate central canal stenosis. Impingement on the traversing L3 nerve roots bilaterally. Small bilateral foraminal protrusions with mild bilateral foraminal narrowing. Mo derate facet arthropathy ligamentum flavum hypertrophy. L3-L4: Mild disc bulging with slight effacement of ventral thecal sac. Tiny left foraminal protrusion with mild left foraminal narrowing. Mild facet arthropathy. Right foramen is patent. L4-L5: Mild annular bulging with slight effacement of ventral thecal sac. Tiny central annular fissur e. Slight encroachment traversing L5 nerve roots. Moderate facet arthropathy ligamentum flavum hypert rophy. Foramen are patent. L5-S1: Disc osteophyte complex eccentric to the left with slight impingement traversing left greater than right S1 nerve roots. Moderate facet arthropathy. Eccentric osteophytic ridging results in mild encroachment on the far exiting L5 nerve roots bilaterally Visualized pelvic bony structures: Normal. Paravertebral soft tissues: Normal. MR/MR lumbar spine wo con* [id number] IMPRESSION: 1. Mild lumbar curve. No acute compression. Chronic biconcave compression frac ture T12. Mild chronic compression superior endplates L3 and L4 unchanged. 2. Moderate central canal stenosis L2-3 due to disc bulging with facet arthrop athy and ligamentum flavum hypertrophy. Small bilateral foraminal protrusions w ith mild bilateral foraminal narrowing. 3. Tiny left foraminal protrusion L3-4 with slight encroachment on the proxima l exiting L3 nerve root. 4. Annular bulging L4-5 with a small annular fissure and slight narrowing of t he subarticular recess bilaterally. 5. Disc osteophyte complex L5-S1 impinges the traversing left S1 nerve root. E ccentric disc bulging slightly encroaches on the far exiting L5 nerve roots ha aterally right greater than left.
== END 2021-04-12 12:42 | disposition home or self-care (01) ==
PROVIDERS: PCP Family Medicine; Visit Provider Orthopaedic Surgery
DX: M25.78 Osteophyte, vertebrae (principal); M51.26 Other intervertebral disc displacement, lumbar region; M48.061 Spinal stenosis, lumbar region without neurogenic claudication; M48.02 Spinal stenosis, cervical region
CPT/HCPCS: 72141; 72148

== ENCOUNTER → 2021-04-21 10:57 | Outpatient (BNVA) | payer MEDICARE, MEDICAID, SELFPAY | PROVIDERS: PCP Family Medicine; Visit Provider Podiatrist Foot & Ankle Surgery | DX: M79.673 Pain in unspecified foot (principal) | CPT/HCPCS: 73610 ==

== ENCOUNTER 2021-05-17 15:17 | Outpatient (CLI) | payer MEDICARE, MEDICAID, SELFPAY ==
--- NOTE | 2021-05-17 16:00 | MR_ITS ---
WS: [id number] MRI OF THE LEFT FOOT WITHOUT GADOLINIUM ENHANCEMENT. INDICATION: Left foot injury. Foot is edematous and red TECHNIQUE: Sagittal PD, axial T1, axial STIR axial PD axial T2 sagittal T1 sagittal STIR coronal PD a nd coronal T2 with fat sat FINDINGS: Advanced diffuse soft tissue edema involving the lower leg and ankle extending into the for efoot. Recommend correlation for cellulitis. No evidence of drainable abscess or drainable fluid payal ection. No evidence of osteomyelitis. 5 mm chronic appearing avulsion fracture the tip of the lateral malleolus. No edema. This appears well-corticated. Mild degenerative arthritis ankle mortise. Normal medial and lateral malleolus. No acute avulsion fra ctures. Mild pes planus. Talar dome is normal. No evidence of avascular necrosis. Normal talar calcan eal articulation. Normal talonavicular articulation. Normal cuboid. Base of the fifth metatarsal is n ormal. Visualized tarsal bones are normal. Normal TMT joint. Edema involving the first proximal phala nx at the DIP joint. This is likely degenerative. Normal plantar aponeurosis. Metatarsals appear normal. Visualized phalanges otherwise appear normal with mild degenerative arthri tis. Distal Achilles is normal in appearance. Normal peroneal tendon sheaths. Normal extensor and flexor compartment tendons. MR/MR foot LT wo con* [id number] IMPRESSION: 1. Diffuse soft tissue edema involving the lower leg and ankle. This extends i nto the dorsal forefoot. Recommend correlation for cellulitis. 2. No drainable abscess or fluid collection. 3. Edema within the distal first proximal phalanx and DIP joint likely degener ative or inflammatory. 4. 5 mm chronic appearing avulsion fracture tip of the lateral malleolus. No edema. This appears well-corticated 5. No visualized acute fractures. 6. Distal Achilles is normal in appearance. Normal peroneus longus and brevis. 7. Normal extensor and flexor compartment tendons.
== END 2021-05-17 15:18 | disposition home or self-care (01) ==
LOC: RADSHAW 15:26
PROVIDERS: PCP Family Medicine; Visit Provider Podiatrist Foot & Ankle Surgery
DX: M25.572 Pain in left ankle and joints of left foot (principal); R60.0 Localized edema; S82.62XA Displaced fracture of lateral malleolus of left fibula, initial encounter for closed fracture; X58.XXXA Exposure to other specified factors, initial encounter
CPT/HCPCS: 73718

== ENCOUNTER → 2021-05-18 14:22 | Outpatient (BNVA) | payer MEDICARE, MEDICAID, SELFPAY | PROVIDERS: PCP Family Medicine; Referring Provider Family Medicine; Visit Provider Specialist | DX: M21.372 Foot drop, left foot (principal); M48.02 Spinal stenosis, cervical region; M48.062 Spinal stenosis, lumbar region with neurogenic claudication; S90.02XA Contusion of left ankle, initial encounter; Y93.9 Activity, unspecified; R20.0 Anesthesia of skin; R20.2 Paresthesia of skin; F17.200 Nicotine dependence, unspecified, uncomplicated | CPT/HCPCS: 99205 ==

== ENCOUNTER → 2021-05-19 14:03 | Outpatient (BNVA) | payer MEDICARE, MEDICAID, SELFPAY | PROVIDERS: PCP Family Medicine; Referring Provider Orthopaedic Surgery; Visit Provider Anesthesiology Pain Medicine | DX: G89.29 Other chronic pain (principal); M48.062 Spinal stenosis, lumbar region with neurogenic claudication; M54.2 Cervicalgia; Z79.891 Long term (current) use of opiate analgesic | CPT/HCPCS: 99204; 99205 ==

== ENCOUNTER → 2021-05-24 13:25 | Outpatient (BNVA) | payer MEDICARE, MEDICAID, SELFPAY | PROVIDERS: PCP Family Medicine; Visit Provider Podiatrist Foot & Ankle Surgery | DX: M79.672 Pain in left foot (principal); M25.572 Pain in left ankle and joints of left foot; M79.89 Other specified soft tissue disorders | CPT/HCPCS: 73610; 73630 ==

== ENCOUNTER → 2021-10-25 14:16 | Outpatient (BNVA) | payer MEDICARE, MEDICAID, SELFPAY | PROVIDERS: PCP Family Medicine; Visit Provider Orthopaedic Surgery | DX: M54.2 Cervicalgia (principal); M54.9 Dorsalgia, unspecified; G89.29 Other chronic pain; M48.02 Spinal stenosis, cervical region | CPT/HCPCS: 72050 ==

== ENCOUNTER 2022-12-01 19:25 | Emergency (ER) | payer MEDICARE, MEDICAID, SELFPAY ==
[2022-12-01 19:29] VITALS: BP 121/77; PULSE 73; RESP 18; TEMP 36.4; O2SAT 97
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
[2022-12-01] MEDS: HYDROcodone-acetaminophen 7.5-325 mg Tablet 1 TAB PO (20:11)
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
[2022-12-01 22:20] VITALS: BP 120/80; PULSE 75; RESP 16; O2SAT 98
--- NOTE | 2022-12-01 22:31 | PC.NURSE ---
Family member to provider. States they are leaving secondary to not getting any better. Provider attempted to speak with family, but family continued to leave. Provider to this RN states they are leaving AMA. Family out the door prior to signing AMA form.
== END 2022-12-01 22:34 | disposition left against medical advice (07) ==
PROVIDERS: Emergency Provider Nurse Practitioner; PCP Family Medicine
DX: S70.11XA Contusion of right thigh, initial encounter (principal); S60.212A Contusion of left wrist, initial encounter; S00.03XA Contusion of scalp, initial encounter; S40.012A Contusion of left shoulder, initial encounter; S20.211A Contusion of right front wall of thorax, initial encounter; Y04.2XXA Assault by strike against or bumped into by another person, initial encounter; Y07.499 Other family member, perpetrator of maltreatment and neglect; Z79.82 Long term (current) use of aspirin; Z53.21 Procedure and treatment not carried out due to patient leaving prior to being seen by health care provider; Z86.19 Personal history of other infectious and parasitic diseases; I10 Essential (primary) hypertension; Z77.22 Contact with and (suspected) exposure to environmental tobacco smoke (acute) (chronic)
CPT/HCPCS: 70450; 72070; 72100; 72125; 72170; 73030; 73100; 73502; 99284

== ENCOUNTER 2023-01-17 10:40 | Outpatient (CLI) | payer MEDICARE, MEDICAID, SELFPAY ==
--- NOTE | 2023-01-17 10:59 | XRR_ITS ---
PROCEDURE INFORMATION: Exam: XR Right Ribs with PA Chest Exam date and time: 01/17/2023 11:57 AM Age: 67 years old Clinical indication: Chest wall pain; Right; Additional info: R rib pain TECHNIQUE: Imaging protocol: Radiologic exam of the right ribs with PA chest. Views: 3 views COMPARISON: CR XR chest 1V portable [id number] 09/24/2020 5:10 PM FINDINGS: Lungs: Unremarkable. No consolidation. Pleural spaces: Unremarkable. No pleural effusion. No pneumothorax. Heart/Mediastinum: Unremarkable. No cardiomegaly. Bones/joints: Unremarkable. XR/XR ribs RT mn 3V w CXR1V [id number] IMPRESSION: No acute findings.
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
--- NOTE | 2023-01-17 10:59 | MM_ITS ---
WS: [id number] BILATERAL 3D TOMOSYNTHESIS DIGITAL DIAGNOSTIC MAMMOGRAPHY WITH CAD CLINICAL INFORMATION: R BREAST PAIN HISTORY: RIGHT breast pain COMPARISON: 2003 TECHNIQUE: Bilateral CC, MLO, and ML views. Exam performed in wheelchair. FINDINGS: The breasts are composed of heterogeneous fibroglandular density, which can limit the detection of sm all underlying mass lesions. Vascular calcification. Pain marker posterior RIGHT breast. No definite parenchymal abnormalities in this area. Ultrasound described below. LEFT breast is unremarkable. ULTRASOUND BREAST RIGHT TECHNIQUE: Ultrasound right breast focused area of concern. CLINICAL INFORMATION: R BREAST PAIN FINDINGS: Ultrasound RIGHT breast in the area of concern 6 to 9:00 position. Normal underlying parenchymal tiss ue. No cystic or solid lesions. No suspicious findings. Recommend return to annual screening mammogra phy. MM/[place] [id number] BI-RADS: 2-Benign FOLLOW UP: 1 Year Follow-up Recommend return to annual screening mammography.
== END 2023-01-17 10:41 | disposition home or self-care (01) ==
LOC: RAD 10:44
PROVIDERS: PCP Family Medicine; Visit Provider Family Medicine
DX: R07.81 Pleurodynia (principal); N64.4 Mastodynia
CPT/HCPCS: 71101; 76642; 76856; 77062; G0279

== ENCOUNTER 2023-01-29 13:17 | Outpatient (CLI) | payer MEDICARE, MEDICAID, SELFPAY ==
--- NOTE | 2023-01-29 13:50 | CT_ITS ---
WS: [id number] LDCT LUNG CANCER SCREENING HISTORY: NICOTINE DEPENDENCE TECHNIQUE: Axial imaging performed from the apices to 1 cm below the costophrenic angles. Coronal and sagittal reformats are submitted with axial MIP series. All CT scans at [facility] use at least one of these dose optimization techniques: automated exposure control; mA and/or kV adjustment per patient size (includes targeted exams where dose is matched to clinical indication); or iterativ e reconstruction. DLP: 73.62 mGy.cm DIvol: Mean CTDIvol: 1.70 (mGy) COMPARISON: 03/15/2018 Diagnostic quality: Satisfactory Lungs: Hyperinflated lungs. Noncalcified 5 mm nodule RIGHT lower lobe. There is an additional noncalc ified nodule measuring 6 mm in the LEFT upper lobe anteriorly. There are a few scattered benign calci fications. Mild thickening of the interstitium. Heart: Normal size heart with no pericardial effusion.. No pericardial effusion. Other findings: Mild atherosclerosis aorta. Normal size pulmonary artery. No adenopathy. LEFT adrenal adenoma measures 1.8 cm. Small hiatal hernia. Splenic granulomata. T12 vertebral planar compression fracture, chronic. CT/CT lung screening [id number] IMPRESSION: LUNG-RADS: 2-Benign Appearance or Behavior FOLLOW UP: 12 Month: Continue annual screening with LDCT OTHER FINDINGS (S MODIFIER): None. 1. Pulmonary nodules are stable since 2018. 2. Chronic emphysema. 3. LEFT adrenal adenoma.
== END 2023-01-29 13:18 | disposition home or self-care (01) ==
LOC: RAD 13:24
PROVIDERS: PCP Family Medicine; Visit Provider Family Medicine
DX: Z12.2 Encounter for screening for malignant neoplasm of respiratory organs (principal); F17.210 Nicotine dependence, cigarettes, uncomplicated
CPT/HCPCS: 71271

== ENCOUNTER 2023-04-04 15:10 | Emergency (ER) | payer MEDICARE, MEDICAID, SELFPAY ==
[2023-04-04 15:24] VITALS: BP 151/85; PULSE 83; RESP 16; O2SAT 93
--- NOTE | 2023-04-04 15:25 | XRR_ITS ---
PROCEDURE INFORMATION: Exam: XR Left Hip Exam date and time: 04/04/2023 3:33 PM Age: 68 years old Clinical indication: Hip pain; Left hip; Prior surgery; Surgery date: 6+ months TECHNIQUE: Imaging protocol: Radiologic exam of the left hip. Views: 2 or 3 views hip with pelvis when performed. COMPARISON: CR XR hip LT 2-3V wo/w pel* [id number] 04/02/2023 3:30 PM FINDINGS: Bones/joints: Left hip prosthesis is seen, with satisfactory or anatomic alignment and position. No indication of hardware failure. Previous small area of overriding of the cortex at the base of the greater trochanter on April 02, 2023 exam is less evident with today's exam (this was noted in the lateral projection with prior exam). The possibility of minimal cortical injury is not excluded. No definite fracture line is appreciated. No other significant osseous abnormality. Soft tissues: Unremarkable. XR/XR hip LT 2-3V wo/w pel* [id number] IMPRESSION: 1. Left hip prosthesis with satisfactory or anatomic alignment and position and without findings of hardware failure. 2. Previous small area of overriding of the cortex on the lateral view with April 02, 2023 exam is less evident with today's exam. The possibility of minimal cortical injury is not excluded, without identification of a definite fracture line. 3. No other significant change.
--- NOTE | 2023-04-04 15:39 | W.ED.EXTPRO ---
HPI - Extremity Problem General: Chief complaint: Extremity Injury, Lower Stated complaint: Sent from , left hip fracture Time Seen by Provider: 04/04/23 15:25 Source: patient Mode of arrival: ambulatory History of Present Illness: 68-year-old female presents to the emergency room from local clinic. She fell 2 days ago was seen in the clinic she has a greater trochanter fracture that is nondisplaced also has seventh to ninth rib fracture on the left. X-ray reports were reviewed and patient was referred to the emergency room today. On arrival here she is stating that she needs 2 mg of Dilaudid before she will allow any evaluation. She has been ambulatory since this happened. Complaint: extremity pain Onset (ago): day(s) (2) Pain Consistency: constant Location: left (Hip and seventh through ninth ribs) Relieving factors: medication and rest Exacerbating factors: nothing, weight bearing and walking Associated symptoms: Deny chest pain, fever(s), rash or short of breath Review of Systems Const: Denies: fever(s), chills, fatigue or malaise ENMT: Denies: throat pain, ear or mastoid pain, nasal discharge or nasal congestion Card: Denies: chest pain Resp: Denies: dyspnea, productive cough or non-productive cough GI: Denies: abdominal pain, nausea, vomiting, hematemesis, coffee ground emesis, diarrhea, constipation, bloating, hematochezia or melena : Denies: flank pain, difficulty voiding, dysuria, urinary frequency or urinary urgency Skin/Breast: Denies: rash or pruritus [facility] ED PFSH: Medical History Chronic UTI Hepatitis C Hypertension Panic disorder Family History Father CAD (coronary artery disease) Psychiatric illness Mother CAD (coronary artery disease) Hypertension Psychiatric illness Grandmother Cancer Psychiatric illness Brother Cancer Psychiatric illness Social History Second hand smoke exposure: Yes Alcohol intake: former Substance/Drug Use: current Physical Exam Const: GENERAL APPEARANCE: cooperative and comfortable ORIENTATION/CONSCIOUSNESS: Yes awake, Yes oriented to person, Yes oriented to place and Yes oriented to time HENMT: COMMON NORMALS: normocephalic, atraumatic and hearing grossly normal bilaterally HEAD & SCALP: normocephalic and atraumatic Resp: COMMON NORMALS: normal respiratory effort, No retractions, No use of accessory muscles and clear to auscultation bilaterally AUSCULTATION: clear to auscultation bilaterally Cardio: COMMON NORMALS: regular rate, regular rhythm and No murmurs present (Cardio) RATE: regular rate RHYTHM: regular rhythm GI: COMMON NORMALS: Soft to palpation and No hepatosplenomegaly present AUSCULTATION: Yes normoactive bowel sounds PALPATION: Yes Soft to palpation, No Tenderness to palpation present (GI), No Guarding due to palpation present (GI) and Yes No hepatosplenomegaly present Extremity: COMMON NORMALS: normal to inspection, capillary refill normal, no clubbing, cyanosis or edema, no calf tenderness and no pedal edema Neuro: SENSORIUM/ORIENTATION: Yes oriented to person, Yes oriented to place and Yes oriented to time Skin: COMMON NORMALS: no rashes or lesions noted GENERAL SKIN EXAM: no rashes or lesions noted Course Vital Signs: Vital signs: Vital Signs Pulse Rate 83 04/04/23 15:24 Respiratory Rate 16 04/04/23 15:24 Blood Pressure 151/85 04/04/23 15:24 Pulse Oximetry 93 04/04/23 15:24 Oxygen Delivery Me thod Room Air 04/04/23 15:24 MDM - Extremity (Nontraumatic) Medical Decision Making Greater trochanter fracture is stable nondisplaced and does not need any intervention. She is complaining of increased pain in her ribs she refused to allow x-ray however. She has normal breath sounds and oxygen saturations are normal. Patient is demanding that she only have Dilaudid and no other medications. And she only wants a given in double dose . Reviewed findings with the patient. Recommended repeat x-ray since she is complaining of more pain in the ribs which she continues to decline. Advised her that she can return anytime we can reevaluate we will discharge patient home pain medications as needed and refer to orthopedics Medical Records I reviewed the patient's medical records. Lab Data I reviewed the patient's lab results. 04/04/23 15:55 04/04/23 15:55 Radiology Impressions Hip/Pelvis X-Ray 04/04/23 15:25 IMPRESSION: 1. Left hip prosthesis with satisfactory or anatomic alignment and position and without findings of hardware failure. 2. Previous small area of overriding of the cortex on the lateral view with April 02, 2023 exam is less evident with today's exam. The possibility of minimal cortical injury is not excluded, without identification of a definite fracture line. 3. No other significant change. Laboratory Results WBC 6.3 10^3/uL (4.0-10.0) 04/04/23 15:55 RBC 4.50 10^6/uL (4.1-5.3) 04/04/23 15:55 Hgb 13.2 g/dL (11.5-15.3) 04/04/23 15:55 Hct 40.5 % (37.0-47.0) 04/04/23 15:55 MCV 90.0 fl (81-99) 04/04/23 15:55 MCH 29.3 pg (28.0-34.0) 04/04/23 15:55 MCHC 32.6 g/dL (30.0-36.0) 04/04/23 15:55 RDW 13.0 % (12.1-15.1) 04/04/23 15:55 Plt Count 129 10^3/cmm (130-400) L 04/04/23 15:55 MPV 10.2 fL (7.4-10.4) 04/04/23 15:55 Neut % (Auto) 66.5 % 04/04/23 15:55 Lymph % (Auto) 25.7 % 04/04/23 15:55 Alexander % (Auto) 7.5 % 04/04/23 15:55 Eos % (Auto) 0.0 % 04/04/23 15:55 Baso % (Auto) 0.0 % 04/04/23 15:55 Neut # (Auto) 4.19 10^3/uL (1.8-7.7) 04/04/23 15:55 Lymph # (Auto) 1.6 10^3/uL (0.8-4.8) 04/04/23 15:55 Alexander # (Auto) 0.5 10^3/uL (0.2-0.9) 04/04/23 15:55 Eos # (Auto) 0.0 10^3/uL (0.0-0.8) 04/04/23 15:55 Baso # (Auto) 0.0 10^3/uL (0.0-0.1) 04/04/23 15:55 Nucleated RBC % (auto) 0 % 04/04/23 15:55 Nucleated RBCs # 0.0 /100WBC 04/04/23 15:55 Sodium 143 mmol/L (136-145) 04/04/23 15:55 Potassium 4.3 mmol/L (3.5-5.1) 04/04/23 15:55 Chloride 110 mmol/L (98-107) H 04/04/23 15:55 Carbon Dioxide 25 mmol/L (22-29) 04/04/23 15:55 Anion Gap 12.3 (5-19) 04/04/23 15:55 BUN 20 mg/dL (8-23) 04/04/23 15:55 Creatinine 0.6 mg/dL (0.5-0.9) 04/04/23 15:55 GFR Calculation 99.1 mL/min (90-130) 04/04/23 15:55 Glucose 85 mg/dL (65-115) 04/04/23 15:55 Calculated Osmolality 298 mOsm/kg (285-295) H 04/04/23 15:55 Calcium 8.7 mg/dL (8.5-10.5) 04/04/23 15:55 Total Bilirubin 0.3 mg/dL (0.15-1.2) 04/04/23 15:55 AST 18 U/L (0-32) 04/04/23 15:55 ALT 13 U/L (0-33) 04/04/23 15:55 Alkaline Phosphatase 79 U/L (35-105) 04/04/23 15:55 Total Protein 6.8 g/dL (6.6-8.7) 04/04/23 15:55 Albumin 3.7 g/dL (3.5-5.2) 04/04/23 15:55 Globulin 3.1 g/dL (1.3-4.6) 04/04/23 15:55 Discharge Plan Discharge Patient Disposition: Home Clinical Impression: Closed fracture of greater trochanter of left femur, Closed fracture of rib of left side Condition: Stable Prescriptions: No Action hydrocodone-acetaminophen 10-325 mg tablet 1 tab PO BID PRN (Reason: pain) 30 Days Qty: 30 0RF (DME) ASO See Rx Instructions .Route .MEDSUPPLY Qty: 1 0RF Rx Instructions: As directed magnesium oxide 400 mg (241.3 mg magnesium) tablet 400 mg PO BEDTIME amlodipine 5 mg tablet 5 mg PO DAILY potassium chloride 10 mEq tablet extended release 10 meq PO BEDTIME metoprolol tartrate 25 mg tablet 25 mg PO Q12H furosemide 40 mg tablet 20 mg PO DAILY PRN (Reason: Edema) garlic 1,000 mg capsule 1,000 mg PO DAILY red yeast rice 600 mg tablet 600 mg PO BID Rx Instructions: give with meal/snack mecobalamin (vitamin B12) 1,000 mcg tablet,chewable 1,000 mcg PO DAILY aspirin [Adult Aspirin Regimen] 81 mg tablet,delayed release (DR/EC) 81 mg PO DAILY diphenhydramine HCl [Allergy Relief(diphenhydramin)] 25 mg tablet 25 mg PO QID PRN (Reason: Allergy Symptoms) loperamide [Imodium A-D] 2 mg capsule 2 mg PO QID PRN (Reason: Diarrhea) alprazolam [Xanax] 2 mg tablet 2 mg PO TID PRN (Reason: unknown) albuterol sulfate [ProAir HFA] 90 mcg/actuation HFA aerosol inhaler 2 puff inhalation QID PRN (Reason: Shortness Of Breath) (DME) ASO See Rx Instructions .Route .MEDSUPPLY Qty: 1 0RF Rx Instructions: As directed (DME) Kirsten AFO left See Rx Instructions .Route .MEDSUPPLY Qty: 1 0RF Rx Instructions: As directed oxybutynin chloride 10 mg tablet extended release 24hr 10 mg PO DAILY pantoprazole 40 mg tablet,delayed release (DR/EC) 40 mg PO BID MDD 2 30 Days Qty: 60 3RF ondansetron HCl [Zofran] 4 mg tablet 4 mg PO Q6H PRN (Reason: nausea and vomiting) Qty: 30 3RF Rx Instructions: 1 tablet every 6 hours as needed for nausea ibuprofen 800 mg Tablet 800 mg PO BID triamcinolone acetonide 0.025 % Cream 1 applic TOPICAL BID PRN (Reason: unknown) Vugv-Nsih-Qemrh (vit C-biotin) 50 mg -1,250 mcg Tablet,Chewable 2 tab PO DAILY Probichew 21 billion cell - 1 gram Tablet,Chewable 2 tab PO DAILY Elderberry Gummy 1 cap PO DAILY@12 gabapentin 600 mg tablet 600 mg PO TID levothyroxine 100 mcg tablet 100 mcg PO DAILY Fish Oil 300-1,000 mg Capsule 1 cap PO BEDTIME CoQ-10 100 mg Capsule 200 mg PO DAILY Daily Fiber 0.4 gram Capsule 0.4 g PO DAILY Discharge Orders: Discharge ED (Routine); Ordered 04/04/23 Ordered By: Anant Lopez Referrals: Dany Andino MD [Primary Care Provider] - Discharge Diet: Usual diet Discharge Activity: Increase activity as tolerated Patient Instructions: Opioid Safety, Pain Management Coding Level of Care Code ED [employer] Truck [employer] for Steph Stewart
[2023-04-04] MEDS: ondansetron 2 mg/ML SDV 2 mL 4 MG IVP (15:56)
[2023-04-04] MEDS: HYDROmorphone 1 mg/mL INJ 1 mL 0.5 MG IVP (15:56)
[2023-04-04 16:04] LABS: Hematocrit 40.5 % (37.0-47.0); Hemoglobin 13.2 g/dL (11.5-15.3); Lymphocytes # 1.6 10^3/uL (0.8-4.8); Lymphocytes % 25.7 %; Mean Corpuscular HGB Conc 32.6 g/dL (30.0-36.0); Mean Corpuscular Hemoglobin 29.3 pg (28.0-34.0); Mean Platelet Volume 10.2 fL (7.4-10.4); Monocytes # 0.5 10^3/uL (0.2-0.9); Monocytes % 7.5 %; Neutrophils # 4.19 10^3/uL (1.8-7.7); Neutrophils % 66.5 %; Nucleated Red Blood Cells % 0 %; Platelet Count 129 10^3/cmm (130-400); White Blood Count 6.3 10^3/uL (4.0-10.0)
[2023-04-04 16:19] LABS: Alanine Aminotransferase 13 U/L (0-33); Albumin Level 3.7 g/dL (3.5-5.2); Alkaline Phosphatase 79 U/L (35-105); Anion Gap 12.3 (5-19); Aspartate Amino Transferase 18 U/L (0-32); Blood Urea Nitrogen 20 mg/dL (8-23); Calcium 8.7 mg/dL (8.5-10.5); Carbon Dioxide 25 mmol/L (22-29); Chloride 110 mmol/L (98-107); Globulin 3.1 g/dL (1.3-4.6); Glomerular Filtration Rate 99.1 mL/min (90-130); Glucose 85 mg/dL (65-115); Osmolality Calculated 298 mOsm/kg (285-295); Potassium 4.3 mmol/L (3.5-5.1); Sodium 143 mmol/L (136-145); Total Bilirubin 0.3 mg/dL (0.15-1.2); Total Protein 6.8 g/dL (6.6-8.7)
== END 2023-04-04 17:02 | disposition home or self-care (01) ==
PROVIDERS: Emergency Provider Family Medicine; PCP Family Medicine
DX: S72.112A Displaced fracture of greater trochanter of left femur, initial encounter for closed fracture (principal); S22.42XA Multiple fractures of ribs, left side, initial encounter for closed fracture; X58.XXXA Exposure to other specified factors, initial encounter
CPT/HCPCS: 73502; 80053; 85025; 96374; 96375; 99284; J1170; J2405

== ENCOUNTER 2023-04-05 21:28 | Observation (INO) | payer MEDICARE, MEDICAID, SELFPAY ==
[2023-04-05 21:34] VITALS: BP 169/83; PULSE 87; RESP 20; TEMP 38.1; O2SAT 93; BMI 37.8
[2023-04-05 22:14] VITALS: RESP 16
[2023-04-05] MEDS: HYDROmorphone 1 mg/mL INJ 1 mL IM (22:14)
--- NOTE | 2023-04-05 22:19 | PC.NURSE ---
Pt refusing BP at this time.
--- NOTE | 2023-04-05 23:28 | ED_ITS ---
HPI - General Adult General: Chief complaint: General Medical Stated complaint: PAIN ALL OVER Time Seen by Provider: 04/05/23 21:48 History of Present Illness: Patient presents to the ER with complaints of unrelenting pain secondary to a fall approximately 1 week ago. Patient states she cannot function at home on her own states she cannot get up on her own cannot get out of bed cannot take care of herself. Patient was admitted to the hospital for pain control. Patient present to the ER on 612 for a fall and had x-rays taken which showed nondisplaced fracture of the proximal left femur and minimally displaced fractures of the left lateral seventh eighth and ninth ribs. 2 days later she had an x-ray which showed left hip prosthesis with satisfactory anatomical alignment. Patient was in ER yesterday asking for 2 mg of Dilaudid and patient is in ER today stating that the 1 mg of Dilaudid she was given is not enough and she cannot function without more pain medicine. Review of Systems General: Reports: 10 or more systems reviewed and unremarkable except in HPI and below PFSH ED PFSH: Medical History Chronic UTI Hepatitis C Hypertension Panic disorder Family History Father CAD (coronary artery disease) Psychiatric illness Mother CAD (coronary artery disease) Hypertension Psychiatric illness Grandmother Cancer Psychiatric illness Brother Cancer Psychiatric illness Social History Second hand smoke exposure: Yes Alcohol intake: former Substance/Drug Use: current Physical Exam Const: COMMON NORMALS: no acute distress, average body habitus, patient oriented x3, no limitations, healthy appearing, alert and well nourished HENMT: COMMON NORMALS: normocephalic, atraumatic, hearing grossly normal bilaterally, external ears normal, Normal external nose present and moist oral mucous membranes HEAD & SCALP: normocephalic and atraumatic NOSE: Normal external nose present EXTERNAL EAR: Yes external ears normal Neck/C-Spine: COMMON NORMALS: no JVD Chest: COMMONS NORMALS: normal inspection of the chest Resp: COMMON NORMALS: normal respiratory effort, No retractions, No use of accessory muscles and clear to auscultation bilaterally AUSCULTATION: clear to auscultation bilaterally Cardio: COMMON NORMALS: no JVD, regular rate, regular rhythm, S1 normal heart sound present, S2 normal heart sound present, No gallops present (Cardio), No clicks present (Cardio), No murmurs present (Cardio) and No rub (Cardio) RATE: regular rate RHYTHM: regular rhythm HEART SOUNDS: S1 normal heart sound present and S2 normal heart sound present GI: COMMON NORMALS: Normal to inspection, nondistended, normoactive bowel sounds present, Soft to palpation, non-tender, No hepatosplenomegaly present and no masses PALPATION: Yes Soft to palpation and Yes No hepatosplenomegaly present Neuro: COMMON NORMALS: patient oriented x3 SENSORIUM/ORIENTATION: Yes alert Course Vital Signs: Vital signs: Vital Signs Temperature 100.6 F H 04/05/23 21:34 Pulse Rate 77 04/06/23 00:29 Respiratory Rate 16 04/06/23 00:29 Blood Pressure 168/86 04/06/23 00:29 Pulse Oximetry 94 04/06/23 00:29 Oxygen Delivery Me thod Room Air 04/05/23 23:47 MDM - General Adult Medical Decision Making Presents to the ER with complaints of right hip pain. Patient states nothing that she is taking at home works. This is a second time in 2 days patient does come to the ER for narcotic pain medicine. Patient did fall 1 week ago and has a hip prosthesis on her right side with ribs 7 8 and 9 broken. Patient states she cannot go home because she cannot function take care of herself and be in this much pain. Patient will be admitted for pain control and social work will be consulted. Dr. Mera was consulted and is in agreements with this. Differential Diagnosis Pain control, inability to function at home because she lives at home alone. Medical Records I reviewed the patient's medical records. Lab Data I reviewed the patient's lab results. 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
[2023-04-05 23:47] VITALS: PULSE 71; RESP 14; O2SAT 94
--- NOTE | 2023-04-05 23:47 | PC.NURSE ---
Pt is continuing to refuse BP at this time.
[2023-04-06] VITALS (8 sets, daily range): BP systolic 124–168; BP diastolic 67–92; PULSE 72–88; RESP 16–18; TEMP 36.6–37; O2SAT 90–97
--- NOTE | 2023-04-06 00:30 | PC.NURSE ---
Pt stating she feels like she needs to urinate, but unable to urinate. Bladder scanned 3x. Less than 250ml in bladder. Pt requested bedside commode, which she was assisted to. Pt urinated approx 200ml urine. Assisted back to bed.
--- NOTE | 2023-04-06 00:50 | PC.NURSE ---
Patient refused to be placed in a hospital gown.
--- NOTE | 2023-04-06 03:01 | PM.HP ---
Providers/Chief Complaint Admitting Physician: Evelyn Mera MD Primary Care Provider: Dany nAdino MD Chief Complaint: PAIN ALL OVER History of Present Illness Lorena Murray is a 68 year old female with h/o left sided rib fracture, lower back pain, right hip discomfort, lumbar stenosis presented with c/o complaints of unrelenting pain secondary to a fall approximately 1 week ago.? Patient states she cannot function at home on her own states she cannot get up on her own cannot get out of bed cannot take care of herself.? She lives alone. Patient was admitted to the hospital for pain control.? As per the ER physician, Patient present to the ER on 612 for a fall and had x-rays taken which showed nondisplaced fracture of the proximal left femur and minimally displaced fractures of the left lateral seventh eighth and ninth ribs.? 2 days later she had an x-ray which showed left hip prosthesis with satisfactory anatomical alignment.?Patient had been to ER more than 2 times for pain control. patient is a poor historian and uncooperative, unable to obtain appropriate history. Review of Systems General: Reports: 10 or more systems reviewed and unremarkable except in HPI and below Medications/Allergies Home Medications Medication Instructions Recorded Confirmed Last Taken Type pantoprazole 40 mg tablet,delayed 40 mg PO BID 30 days #60 tabs 11/11/19 09/27/21 Unknown Rx release albuterol sulfate 90 mcg/actuation 2 puff inhalation QID PRN 09/02/20 09/27/21 Unknown History aerosol inhaler (ProAir HFA) Shortness Of Breath alprazolam 2 mg tablet (Xanax) 2 mg PO TID PRN unknown 09/02/20 09/27/21 01/08/21 History amlodipine 5 mg tablet 5 mg PO DAILY 09/02/20 09/27/21 01/08/21 History aspirin 81 mg tablet,delayed 81 mg PO DAILY 09/02/20 09/27/21 01/08/21 History release (Adult Aspirin Regimen) diphenhydramine HCl 25 mg tablet 25 mg PO QID PRN Allergy Symptoms 09/02/20 09/27/21 Unknown History (Allergy Relief (diphenhydramine)) furosemide 40 mg tablet 20 mg PO DAILY PRN Edema 09/02/20 09/27/21 Unknown History gabapentin 800 mg tablet 800 mg PO TID 09/02/20 09/27/21 Unknown History garlic 1,000 mg capsule 1,000 mg PO DAILY 09/02/20 09/27/21 Unknown History levothyroxine 112 mcg tablet 112 mcg PO DAILY@0900 09/02/20 09/27/21 01/08/21 History (Synthroid) loperamide 2 mg capsule (Imodium 2 mg PO QID PRN Diarrhea 09/02/20 09/27/21 01/08/21 History A-D) magnesium oxide 400 mg (241.3 mg 400 mg PO BEDTIME 09/02/20 09/27/21 01/07/21 History magnesium) tablet mecobalamin (vitamin B12) 1,000 1,000 mcg PO DAILY 09/02/20 09/27/21 Unknown History mcg chewable tablet metoprolol tartrate 25 mg tablet 25 mg PO Q12H 09/02/20 09/27/21 01/08/21 History metronidazole 0.75 % topical cream 1 applic topical BID #45 grams 09/02/20 09/27/21 Unknown Rx potassium chloride 10 mEq 10 meq PO BEDTIME 09/02/20 09/27/21 Unknown History tablet,extended release red yeast rice 600 mg tablet 600 mg PO BID 09/02/20 09/27/21 01/08/21 History Elderberry Gummy 1 cap PO DAILY@12 09/24/20 09/27/21 Unknown History ascorbic acid (vitamin C) 500 mg 1,000 mg PO DAILY@12 09/24/20 09/27/21 Unknown History chewable tablet bacillus coagulans 21 billion 2 tab PO DAILY 09/24/20 09/27/21 Unknown History cell-inulin 1 gram chewable tablet (Probichew) ibuprofen 800 mg tablet 800 mg PO BID 09/24/20 09/27/21 Unknown History omega 4-zsi-qrd-fish oil 500 mg 1 cap PO BEDTIME 09/24/20 09/27/21 Unknown History (200mg-300mg)-1,000 mg capsule triamcinolone acetonide 0.025 % 1 applic topical BID PRN unknown 09/24/20 09/27/21 Unknown History topical cream vitamin C 50 mg-biotin 1,250 mcg 2 tab PO DAILY 09/24/20 09/27/21 01/08/21 History chewable tablet (Kqtj-Oytn-Pslfs (vit C-biotin)) promethazine 25 mg rectal 25 mg NJ Q6H PRN nausea and 12/26/20 09/27/21 Unknown Rx suppository vomiting #12 ea betamethasone valerate 0.1 % See Rx Instructions .Route .COMPLEX 01/08/21 09/27/21 Unknown History topical cream carbamazepine 200 mg tablet 200 mg PO BID 01/08/21 09/27/21 Unknown History hydrocodone 5 mg-acetaminophen 325 1 tab PO Q6H PRN pain #14 tabs 01/08/21 09/27/21 Unknown Rx mg tablet (Dixie) ASO #1 ea 02/02/21 09/27/21 Unknown Rx ASO #1 ea 04/21/21 09/27/21 Unknown Rx [place] AFO left #1 ea 04/25/21 09/27/21 Unknown Rx prednisone 20 mg tablet 20 mg PO DAILY #15 tabs 05/05/21 09/27/21 Unknown Rx hydrocodone 10 mg-acetaminophen 1 tab PO BID PRN pain 30 days #30 05/18/21 09/27/21 Unknown Rx 325 mg tablet tabs ondansetron HCl 4 mg tablet 4 mg PO Q6H PRN nausea and 05/20/21 09/27/21 Unknown Rx (Zofran) vomiting #30 tabs oxybutynin chloride 10 mg 10 mg PO DAILY 09/27/21 09/27/21 Unknown History tablet,extended release 24 hr Allergies Allergy/AdvReac Type Severity Reaction Status Date / Time ketorolac [From Toradol] Allergy Intermediate makes me Verified 12/01/22 19:43 sweat acetaminophen [From Percocet] Allergy Unknown Verified 12/01/22 19:43 codeine Allergy Unknown Verified 12/01/22 19:43 Macrolide Antibiotics Allergy Unknown Verified 12/01/22 19:43 oxycodone [From OxyContin] Allergy Unknown Verified 12/01/22 19:43 Penicillins Allergy Unknown Verified 12/01/22 19:43 sulfamethoxazole Allergy Unknown Verified 12/01/22 19:43 [From Bactrim] tramadol [From Ultram] Allergy Unknown Verified 12/01/22 19:43 trimethoprim [From Bactrim] Allergy Unknown Verified 12/01/22 19:43 PFSH Acute PFSH: Medical History Chronic UTI Hepatitis C Hypertension Panic disorder Family History Father CAD (coronary artery disease) Psychiatric illness Mother CAD (coronary artery disease) Hypertension Psychiatric illness Grandmother Cancer Psychiatric illness Brother Cancer Psychiatric illness Social History Second hand smoke exposure: Yes Alcohol intake: former Substance/Drug Use: current Vitals/I&O/Wt Last Vital Signs Temp 98.6 F 04/06/23 02:29 Pulse 72 04/06/23 02:29 Resp 17 04/06/23 02:29 BP 124/78 04/06/23 02:29 Pulse Ox 90 04/06/23 02:29 O2 Del Method Room Air 04/06/23 02:29 Weight last 48 hrs Weight 99.79 kg Physical Exam Narrative: AAOx3, uncooperative , in moderate distress due to generalised pain Chest clear to ascultation CVS- S1S2 normal Abd -unable to examine Ext- B/l 2+ edema present. Data Xray Ortho: Radiologist's impression: right hip Total left hip arthroplasty. Prosthetic components are intact and in proper position and alignment. There is a small area of overriding and discontinuous cortex at the base of the greater trochanter laterally. This area appeared intact on the examination of 12/01/2022. No other interval change compared to the previous study. Other Xray: Radiologist's impression: x-ray ribs Minimally displaced fractures of the left lateral seventh through the ninth ribs. No pneumothorax or significant left pleural effusion. Chronic vertebral plana of T12. A&P Assessment and plan (1) Closed fracture of greater trochanter of left femur: (2) Closed fracture of rib of left side: (3) Inadequate pain control: (4) Acute pain of right hip: Plan Fracture of ribs and greater trochanter of left femur likely secondary to mechanical fall with reduced mobility and increased pain will do ortho consult in am. pain control with ibuprofen 600mg q6h prn. 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 resume home medications once confirmed. cardiac diet DVT ppx with SQ heparin Attestations Medical Necessity Statement*: need ortho evaluation and social work for ANIMAL IMPERSONATOR Time Spent in Patient Care: 30min Coding Level of Care Code 52000 Diagnoses Closed fracture of greater trochanter of left femur S72.112A Closed fracture of rib of left side S22.32XA Inadequate pain control R52 Acute pain of right hip M25.551 Time Spent (min) 30
[2023-04-06] MEDS: enoxaparin 30 mg/0.3 mL Syringe SUBCUT (04:09)
--- NOTE | 2023-04-06 07:13 | PC.OT ---
OT orders received awaiting ortho consult prior to initiating treatment.
--- NOTE | 2023-04-06 07:53 | PC.NURSE ---
refused to take her vitals
[2023-04-06] MEDS: HYDROmorphone 1 mg/mL INJ 1 mL 0.4 MG IVP ×3 (10:16→21:22)
--- NOTE | 2023-04-06 11:18 | PM.MISC ---
Miscellaneous Note Note: Patient was very upset that she only got ibuprofen overnight I did promise her that I will go over her medications I resumed most of her home medications today She is not complaining active chest pain or shortness of breath Awake and alert Currently on room air Complaining of pain in her hip. Awake and alert GCS 15 Nonfocal neuro exam Assessment and plan Resume home medications I do not think patient need any surgical intervention Nondisplaced fracture prosthesis without any anatomical misalignment I do believe she will benefit from home health with physical therapy She was not willing to work with physical therapy today Spent 3 to 4 minutes in counseling We will get in touch with Dr. Banks to see if any intervention needs to be done Continue gabapentin for neuropathic pain Patient lives alone
[2023-04-06] MEDS: aspirin 81 mg EC Tablet PO (13:17)
[2023-04-06] MEDS: amlodipine 5 mg Tablet PO (13:17)
[2023-04-06] MEDS: ALPRAZolam 0.5 mg Tablet 1 MG PO ×2 (13:17→21:06)
[2023-04-06] MEDS: levothyroxine 100 mcg Tablet PO (13:17)
[2023-04-06] MEDS: cyanocobalamin 1,000 mcg Tablet 1000 MCG PO (13:17)
[2023-04-06] MEDS: ondansetron 2 mg/ML SDV 2 mL 4 MG IVP (16:56)
[2023-04-06] MEDS: pantoprazole DR 40 mg Tablet PO (16:56)
[2023-04-06] MEDS: metoprolol tartrate 25 mg Tablet PO (21:05)
[2023-04-06] MEDS: gabapentin 300 mg Capsule 600 MG PO (21:05)
[2023-04-06] MEDS: potassium chloride ER 10 mEq Tablet PO (21:05)
--- NOTE | 2023-04-06 21:30 | PC.NURSE ---
It was reported to this nurse that patient claims that her home bottle of Xanax is missing. This nurse asked patient about missing medication at approx. 2130. Patient reports that her bottle of Xanax 2mg bars are missing. Patient states that the bottle was in her pillowcase from home with her pillow that is in the bed with patient. This nurse checked home pillow and no medication bottle was found. Patient friend was visiting at approx. 1930 this shift and picked up patient's documented money and home medications (mixed bottle of medications) from [facility]. Patient and visitor both state that this is not her Xanax. Ambulance company was called by day shift nursing and denied finding any medication bottles from patient. Patient Xanax was not documented on arrival to floor and was not in Pyxis when rechecked. When asking patient about the Xanax not being documented, patient states I kept the bottle in the pillowcase, I did not tell any of the staff that I had it . This nurse asked patient why the Xanax was not given to nursing staff with other home medications to be secured in Pyxis. Patient then stated I wanted to take my home dose while I'm here, they aren't giving it to me . This nurse then asked patient if patient had kept that medication or any others to take without nursing staff being aware. Patient then stated No, I just don't want to be charged for any of the medications if I already have them . This nurse explained dangers of taking medications without staff being aware and without a physician's order. This nurse explained that over medication, especially of narcotics and benzodiazapine medications could cause respiratory depression. Patient then stated I'm not getting depressed, I'm getting angry! . Patient states Someone is going to get in big trouble for stealing my medication . This nurse asks patient if patient observed anyone taking any medication bottles or belongings from her without permission and patient states no. This nurse apologized to patient for the frustrating situation and informed patient that measures would be taken to find the lost medication. This nurse asked patient when the medication had become missing and patient states I don't know, I don't know when I even got here . Informed patient that it appears she was admitted around 0230 on 04/06/23. When asked if patient was absolutely sure if medication was with her on arrival, patient states that she is sure. When asked if medication could possibly be in patient's purse which is on the bed beside her, patient denies that it could be in her purse. Patient two bags of belongings at bedside searched with patient permission, no medications found. Linens searched and bottom of mattress lifted with no medication bottle found. No medications seen on floor around bed. Patient care nurse and School Crossing Guard Supervisor have been updated regarding missing medication.
[2023-04-07] VITALS (15 sets, daily range): BP systolic 119–156; BP diastolic 65–93; PULSE 62–89; RESP 16–18; TEMP 36.3–37; O2SAT 92–97
[2023-04-07 05:51] LABS: Hematocrit 40.1 % (37.0-47.0); Hemoglobin 13.7 g/dL (11.5-15.3); Lymphocytes # 1.1 10^3/uL (0.8-4.8); Lymphocytes % 40.2 %; Mean Corpuscular HGB Conc 34.2 g/dL (30.0-36.0); Mean Corpuscular Hemoglobin 29.9 pg (28.0-34.0); Mean Corpuscular Volume 87.6 fl (81-99); Mean Platelet Volume 10.2 fL (7.4-10.4); Monocytes # 0.2 10^3/uL (0.2-0.9); Monocytes % 8.4 %; Neutrophils # 1.34 10^3/uL (1.8-7.7); Neutrophils % 51.4 %; Nucleated Red Blood Cells % 0 %; Platelet Count 91 10^3/cmm (130-400); Red Blood Count 4.58 10^6/uL (4.1-5.3); Red Cell Distribution Width 12.7 % (12.1-15.1); White Blood Count 2.6 10^3/uL (4.0-10.0)
[2023-04-07 06:21] LABS: Alanine Aminotransferase 13 U/L (0-33); Albumin Level 3.1 g/dL (3.5-5.2); Alkaline Phosphatase 86 U/L (35-105); Blood Urea Nitrogen 13 mg/dL (8-23); Calcium 8.4 mg/dL (8.5-10.5); Carbon Dioxide 22 mmol/L (22-29); Chloride 109 mmol/L (98-107); Creatinine Clr Calc Pharmacy 76.2086; Globulin 2.4 g/dL (1.3-4.6); Glomerular Filtration Rate 158.3 mL/min (90-130); Glucose 130 mg/dL (65-115); Osmolality Calculated 298 mOsm/kg (285-295); Sodium 143 mmol/L (136-145); Total Bilirubin 0.3 mg/dL (0.15-1.2); Total Protein 5.5 g/dL (6.6-8.7)
[2023-04-07 06:38] LABS: Anion Gap 16.1 (5-19); Aspartate Amino Transferase 22 U/L (0-32); Potassium 4.1 mmol/L (3.5-5.1)
--- NOTE | 2023-04-07 08:49 | PC.OT ---
Evaluation attempted . Patient unable to awaken.
--- NOTE | 2023-04-07 09:28 | CTR_ITS ---
PROCEDURE INFORMATION: Exam: CT Left Lower Extremity Without Contrast, Hip Exam date and time: 04/07/2023 1:39 PM Age: 68 years old Clinical indication: Pain; Left; Prior surgery; Surgery date: 6+ months; Surgery type: Lt hip; Additional info: Possible fracture TECHNIQUE: Imaging protocol: CT of the left lower extremity without contrast was performed. Exam focused on the hip. Radiation optimization: All CT scans at this facility use at least one of these dose optimization techniques: automated exposure control; mA and/or kV adjustment per patient size (includes targeted exams where dose is matched to clinical indication); or iterative reconstruction. REPORTING DATA: Count of CT and Cardiac NM exams in prior 12 months: This patient has received 3 known CTs and 0 known cardiac nuclear medicine studies in the 12 months prior to the current study. COMPARISON: CR XR hip LT 2-3V wo/w pel* [id number] 04/04/2023 3:33 PM RADIATION DOSE METRICS: Total DLP (mGy-cm): 382.07 FINDINGS: Bones/joints: There is a bipolar left hip prosthesis in satisfactory position within the left hip joint. Hardware is intact. Bone metal interface is unremarkable. There is no periprosthetic fracture detected remainder of visualized osseous structures left hemipelvis are intact. Soft tissues: Mild postoperative changes within the superficial soft tissues lateral to the greater trochanter. No obvious joint effusion. Left groin site is unremarkable. Bowel: Scattered diverticula sigmoid colon. CT/CT hip LT wo con* [id number] IMPRESSION: Bipolar left hip prosthesis in satisfactory position. No acute findings or evidence of hardware failure.
[2023-04-07] MEDS: cyanocobalamin 1,000 mcg Tablet 1000 MCG PO (10:38)
[2023-04-07] MEDS: aspirin 81 mg EC Tablet PO (10:38)
[2023-04-07] MEDS: gabapentin 300 mg Capsule 600 MG PO ×3 (10:38→20:53)
[2023-04-07] MEDS: levothyroxine 100 mcg Tablet PO (10:38)
[2023-04-07] MEDS: metoprolol tartrate 25 mg Tablet PO ×2 (10:39→20:53)
[2023-04-07] MEDS: amlodipine 5 mg Tablet PO (10:39)
[2023-04-07] MEDS: pantoprazole DR 40 mg Tablet PO ×2 (10:39→18:37)
[2023-04-07] MEDS: ondansetron 2 mg/ML SDV 2 mL 4 MG IVP ×2 (10:43→20:41)
[2023-04-07] MEDS: HYDROmorphone 1 mg/mL INJ 1 mL 0.4 MG IVP ×2 (10:44→16:27)
[2023-04-07] MEDS: ALPRAZolam 0.5 mg Tablet 1 MG PO ×2 (10:51→18:38)
--- NOTE | 2023-04-07 18:13 | PC.NURSE ---
Pt requested SCDs from Dr. Kelly, this nurse brought them and stated since she would have to call for assistance that she would not want them.
[2023-04-07] MEDS: oxyCODONE 5 mg IR Tab/Cap 15 MG PO (18:38)
[2023-04-07] MEDS: acetaminophen 500 mg Tablet 1000 MG PO (18:39)
[2023-04-07] MEDS: HYDROmorphone 1 mg/mL INJ 1 mL 0.2 MG IVP (20:36)
[2023-04-07] MEDS: potassium chloride ER 10 mEq Tablet PO (20:53)
--- NOTE | 2023-04-07 21:45 | PM.PN ---
Subjective Subjective: Patient reports severe pain. She states she needs the IV and oral pain medications, however there are reports that she states the IV pain medications do not work. Daughter is bedside on rounds. Had extensive conversation with patient regarding pain management. Emphasized need to wean off IV opiates. Patient not completely agreeable. Reports pain all over. Reports nausea at times. Denies fevers, chills, or emesis. Medications: Reviewed: Yes Vitals/I&O/Wt Last Vital Signs Temp 97.9 F 04/07/23 20:00 Pulse 89 04/07/23 20:00 Resp 18 04/07/23 20:36 BP 143/80 04/07/23 20:00 Pulse Ox 94 04/07/23 20:00 O2 Del Method Room Air 04/07/23 19:14 04/07/23 04/07/23 04/07/23 06:59 14:59 22:59 Intake Total 120 / 1440 600 / 600 Balance 120 / 1440 600 / 600 Physical Exam Narrative: GENERAL: The patient is awake. No acute distress. Tangential at times. HEENT: Normocephalic, atraumatic. Extraocular muscles intact. NECK: No JVD. CARDIOVASCULAR: Normal S1 and S2. No murmurs, rubs, or gallops. Chest wall is tender. RESPIRATORY: Clear to auscultation bilaterally. No wheezing. No rales. No rhonchi. ABDOMEN: Soft. Not tender. Not distended. Bowel sounds present. No guarding. EXTREMITIES: No cyanosis. No clubbing. SKIN: No skin rash. No jaundice. CENTRAL NERVOUS SYSTEM: Moves all 4 extremities. No myoclonus. Data 04/07/23 05:05 04/07/23 05:05 A&P Assessment and plan (1) Closed fracture of greater trochanter of left femur: (2) Closed fracture of rib of left side: (3) Inadequate pain control: (4) Acute pain of right hip: Plan Fracture of ribs and greater trochanter of left femur secondary to mechanical fall Intractable pain -Decrease IV hydromorphone from 0.4 to 0.2 mg, consider d.c in AM -D/c hydrocodone/APAP (home meds) -Start scheduled Tylenol -Start oxycodone 15 mg PRN -Discontinue ibuprofen, pt declining -Start Mobic -Monitor bowel movements -Therapy evaluation pending, pt unable to d/c home safely today, probably will need post acute care Anxiety -Continue home meds Neuropathy -Continue gabapentin Hypertension -Continue Lopressor DVT ppx: Lovenox Code: Full Attestations Medical Necessity Statement*: Patient requiring ongoing IV pain medications for which she requiring on going hospitalization for care. Coding Level of Care Code Acute Code for Chg Fwd Diagnoses Closed fracture of greater trochanter of left femur S72.112A Closed fracture of rib of left side S22.32XA Inadequate pain control R52 Acute pain of right hip M25.551
[2023-04-08] VITALS (13 sets, daily range): BP systolic 118–154; BP diastolic 70–84; PULSE 68–97; RESP 16–20; TEMP 36.4–36.9; O2SAT 94–98
[2023-04-08] MEDS: acetaminophen 500 mg Tablet 1000 MG PO ×2 (01:33→18:13)
[2023-04-08] MEDS: diphenhydrAMINE 25 mg Capsule PO (01:33)
[2023-04-08] MEDS: HYDROmorphone 1 mg/mL INJ 1 mL 0.2 MG IVP ×3 (01:34→21:44)
[2023-04-08] MEDS: ondansetron 2 mg/ML SDV 2 mL 4 MG IVP ×4 (01:34→18:13)
[2023-04-08] MEDS: ALPRAZolam 0.5 mg Tablet 1 MG PO ×2 (02:49→18:13)
[2023-04-08] MEDS: pantoprazole DR 40 mg Tablet PO ×2 (08:37→18:13)
[2023-04-08] MEDS: cyanocobalamin 1,000 mcg Tablet 1000 MCG PO (08:37)
[2023-04-08] MEDS: aspirin 81 mg EC Tablet PO (08:38)
[2023-04-08] MEDS: amlodipine 5 mg Tablet PO (08:38)
[2023-04-08] MEDS: levothyroxine 100 mcg Tablet PO (08:38)
[2023-04-08] MEDS: gabapentin 300 mg Capsule 600 MG PO ×3 (08:38→21:42)
[2023-04-08] MEDS: metoprolol tartrate 25 mg Tablet PO ×2 (08:43→21:42)
[2023-04-08] MEDS: meloxicam 7.5 mg tablet PO (08:43)
--- NOTE | 2023-04-08 10:42 | PC.OT ---
Patient adamantly refused OT x 3 yesterday and 1x today stating I'm going to a [place] honey... I don't feel like therapy.
[2023-04-08] MEDS: oxyCODONE 5 mg IR Tab/Cap 15 MG PO ×2 (12:52→18:13)
--- NOTE | 2023-04-08 12:57 | PM.PN ---
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 Vitals/I&O/Wt Last Vital Signs Temp 97.7 F 04/08/23 12:00 Pulse 97 04/08/23 12:00 Resp 18 04/08/23 12:52 BP 134/70 04/08/23 12:00 Pulse Ox 97 04/08/23 12:00 O2 Del Method Room Air 04/08/23 12:00 04/07/23 04/08/23 04/08/23 22:59 06:59 14:59 Intake Total 120 / 720 500 / 500 Balance 120 / 720 500 / 500 Physical Exam Narrative: Patient is a in her bed Currently doing well on room air GCS 15 Well-groomed No active pain GCS 15 Abdomen soft Euvolemic Nonfocal neuro exam GCS 15 NIH 0 S1, S2 Data 04/07/23 05:05 04/07/23 05:05 A&P Assessment and plan (1) Closed fracture of greater trochanter of left femur: (2) Closed fracture of rib of left side: (3) Inadequate pain control: (4) Fracture, ribs: Qualifiers: Encounter type: subsequent encounter Fracture type: closed Laterality: right (5) Acute pain of right hip: (6) Lumbar stenosis with neurogenic claudication: (7) Chronic neck and back pain: Plan Hip pain Osteoarthritis No active fracture Limited range of motion Patient will need rehab Only 10 feet of physical therapy today Full code I would not increase her opioid dosage at this point Patient seems comfortable at the time of ambulation she may benefit from oxycodone and low-dose morphine Patient does have back pain with neurogenic claudication Attestations Medical Necessity Statement*: Discharge to rehab in next 24 to 48 hours Diagnoses Closed fracture of greater trochanter of left femur S72.112A Closed fracture of rib of left side S22.32XA Inadequate pain control R52 Fracture, ribs S22.49XA Encounter type: subsequent encounter Fracture type: closed Laterality: right Acute pain of right hip M25.551 Lumbar stenosis with neurogenic claudication M48.062 Chronic neck and back pain M54.2; M54.9; G89.29
[2023-04-08] MEDS: potassium chloride ER 10 mEq Tablet PO (21:42)
[2023-04-09] VITALS (10 sets, daily range): BP systolic 114–165; BP diastolic 60–84; PULSE 55–78; RESP 16–20; TEMP 36.4–36.8; O2SAT 93–98
[2023-04-09] MEDS: acetaminophen 500 mg Tablet 1000 MG PO ×3 (03:01→17:18)
[2023-04-09] MEDS: oxyCODONE 5 mg IR Tab/Cap 15 MG PO ×4 (05:42→20:57)
[2023-04-09] MEDS: ALPRAZolam 0.5 mg Tablet 1 MG PO ×3 (05:42→20:57)
[2023-04-09] MEDS: metoprolol tartrate 25 mg Tablet PO (08:56)
[2023-04-09] MEDS: cyanocobalamin 1,000 mcg Tablet 1000 MCG PO (08:56)
[2023-04-09] MEDS: amlodipine 5 mg Tablet PO (08:56)
[2023-04-09] MEDS: aspirin 81 mg EC Tablet PO (08:56)
[2023-04-09] MEDS: pantoprazole DR 40 mg Tablet PO ×2 (08:56→17:19)
[2023-04-09] MEDS: levothyroxine 100 mcg Tablet PO (08:56)
--- NOTE | 2023-04-09 12:52 | PM.PN ---
Subjective Subjective: This morning patient was asking for IV Dilaudid which I be reluctant to give her at this point Patient seems drowsy in her bed I do not see any signs of active distress He was able to work with PT to some extent Awaiting long-term placement, started prior authorization social service worker nurse Deven updated not to give her any IV pain medications for now Vitals/I&O/Wt Last Vital Signs Temp 97.7 F 04/09/23 12:00 Pulse 55 L 04/09/23 12:00 Resp 18 04/09/23 12:00 BP 114/72 04/09/23 12:00 Pulse Ox 93 04/09/23 12:00 O2 Del Method Room Air 04/09/23 12:00 04/08/23 04/09/23 04/09/23 22:59 06:59 14:59 Intake Total 720 / 1460 480 / 480 Balance 720 / 1460 480 / 480 Physical Exam Narrative: Awake and alert Laying supine Euvolemic Not in any distress Fatigued and lethargic Abdomen soft S1, S2 Currently on room air GCS 15 Data 04/07/23 05:05 04/07/23 05:05 A&P Assessment and plan (1) Closed fracture of greater trochanter of left femur: (2) Inadequate pain control: (3) Fracture, ribs: Qualifiers: Encounter type: subsequent encounter Fracture type: closed Laterality: right (4) Acute pain of right hip: (5) Chronic neck and back pain: (6) Cervical stenosis of spinal canal: (7) Lumbar stenosis with neurogenic claudication: (8) Left foot drop: (9) Closed fracture of rib of left side: Plan Patient has left rib fracture No active fracture of hip CT scan reviewed For now we are avoiding IV Dilaudid my concern is related to opiate overdose For now we are continuing lidocaine patch, meloxicam, oxycodone Awaiting long-term placement Start prior authorization today Patient is able to work with PT to some extent Full code Low-sodium diet DVT prophylaxis Lovenox Attestations Medical Necessity Statement*: Medical management Diagnoses Closed fracture of greater trochanter of left femur S72.112A Inadequate pain control R52 Fracture, ribs S22.49XA Encounter type: subsequent encounter Fracture type: closed Laterality: right Acute pain of right hip M25.551 Chronic neck and back pain M54.2; M54.9; G89.29 Cervical stenosis of spinal canal M48.02 Lumbar stenosis with neurogenic claudication M48.062 Left foot drop M21.372 Closed fracture of rib of left side S22.32XA
--- NOTE | 2023-04-09 13:41 | PC.OT ---
OT EVAL ATTEMPTED. THIS IS THE THIRD ATTEMPT IN 3 DAYS AND PT CONTINUES TO REFUSE PARTICIPATION IN EVALUATION. NO OTHER ATTEMPTS WILL BE MADE AT THIS TIME.
[2023-04-09] MEDS: gabapentin 300 mg Capsule 600 MG PO (14:57)
[2023-04-09] MEDS: potassium chloride ER 10 mEq Tablet PO (20:56)
[2023-04-10] VITALS (10 sets, daily range): BP systolic 124–163; BP diastolic 77–82; PULSE 67–71; RESP 16–20; TEMP 36.7–37.2; O2SAT 93–97
[2023-04-10] MEDS: gabapentin 300 mg Capsule 600 MG PO ×3 (09:31→21:12)
[2023-04-10] MEDS: acetaminophen 500 mg Tablet 1000 MG PO ×2 (09:31→18:17)
[2023-04-10] MEDS: amlodipine 5 mg Tablet PO (09:32)
[2023-04-10] MEDS: aspirin 81 mg EC Tablet PO (09:32)
[2023-04-10] MEDS: cyanocobalamin 1,000 mcg Tablet 1000 MCG PO (09:32)
[2023-04-10] MEDS: levothyroxine 100 mcg Tablet PO (09:32)
[2023-04-10] MEDS: pantoprazole DR 40 mg Tablet PO ×2 (09:32→18:17)
[2023-04-10] MEDS: oxyCODONE 5 mg IR Tab/Cap 15 MG PO ×3 (09:41→23:00)
--- NOTE | 2023-04-10 12:31 | PM.PN ---
Subjective Subjective: Patient endorsing green sputum production She is stating that her breathing is rattling She is on room air Afebrile I will give her 1 dose of Dilaudid only Vitals/I&O/Wt Last Vital Signs Temp 98.9 F 04/10/23 12:00 Pulse 67 04/10/23 12:00 Resp 18 04/10/23 09:41 BP 124/77 04/10/23 12:00 Pulse Ox 93 04/10/23 12:00 O2 Del Method Room Air 04/10/23 08:00 04/09/23 04/10/23 04/10/23 22:59 06:59 14:59 Intake Total 500 / 1460 220 / 220 Balance 500 / 1460 220 / 220 Physical Exam Narrative: Patient is laying supine No acute distress Bilateral breath sounds I do not appreciate any wheezing or crackles she has upper airway resonance Abdomen soft Lower extremity no edema GCS 15 Awake and alert Nonfocal neuro exam Currently on room air Data 04/07/23 05:05 04/07/23 05:05 A&P Assessment and plan (1) Closed fracture of rib of left side: (2) Inadequate pain control: (3) Fracture, ribs: Qualifiers: Encounter type: subsequent encounter Fracture type: closed Laterality: right (4) Acute pain of right hip: (5) Lumbar stenosis with neurogenic claudication: (6) Chronic neck and back pain: (7) Left foot drop: Plan Awaiting placement I will give her 1 dose of Dilaudid today only We will give her Mucinex for productive cough No need to repeat x-ray today Afebrile doing well on room air For her rib fracture she is getting lidocaine patch along opioids We will try to avoid giving her IV opioids patient tends to have seeking behavior Patient is full code As per the social worker psychiatric authorization has been initiated today, Limited work with PT Patient lives alone, with recent rib fractures and hip pain she want you to go home she will be considered high risk of fall Attestations Medical Necessity Statement*: Awaiting placement Diagnoses Closed fracture of rib of left side S22.32XA Inadequate pain control R52 Fracture, ribs S22.49XA Encounter type: subsequent encounter Fracture type: closed Laterality: right Acute pain of right hip M25.551 Lumbar stenosis with neurogenic claudication M48.062 Chronic neck and back pain M54.2; M54.9; G89.29 Left foot drop M21.372
[2023-04-10] MEDS: HYDROmorphone 1 mg/mL INJ 1 mL 0.2 MG IVP (13:55)
[2023-04-10] MEDS: ondansetron 2 mg/ML SDV 2 mL 4 MG IVP (13:55)
--- NOTE | 2023-04-10 14:08 | PC.NURSE ---
Patient has refused lovenox, lidocaine and mobic today.
--- NOTE | 2023-04-10 14:48 | CT_ITS ---
WS: [id number] CTA HEAD AND NECK TECHNIQUE: Contrast enhanced CTA of the head and neck with coronal and sagittal reformatted images an d maximum intensity projection (MIP) images. NASCET criteria utilized. CLINICAL INFORMATION: Pt c/o new onset vision loss-right eye COMPARISON: CT 007 DLP: 1001.[address] scans at [facility] use at least one of these dose optimization techniques: automated e xposure control; mA and/or kV adjustment per patient size (includes targeted exams where dose is matc hed to clinical indication); or iterative reconstruction. FINDINGS: Moderate small vessel changes. Moderate parenchymal volume loss. No extra-axial fluid colle ctions. No evidence of mass or mass effect. Intracranial vascular calcification. Retention cyst or po lyp LEFT maxillary sinus measuring 1.8 cm. Normal posterior nasopharynx and parapharyngeal fat. RIGHT: RIGHT common carotid artery is patent. Eccentric atheromatous plaque RIGHT carotid bulb extend ing into the ICA. Less than 50% RIGHT ICA stenosis. ICA is patent to the skull base. LEFT: LEFT common carotid artery is patent. Mild atheromatous plaque LEFT carotid bulb extending into the ICA. LEFT ICA is patent to the skull base. LEFT dominant vertebral artery. Both vertebral arteries are patent. Basilar artery is patent. Normal vascularity to the [employer] OUTSIDE territory bilaterally. Both ICAs are patent at the skull base. Mild to moderate cavernous carotid calcification. Small LEFT A1 segment. Normal vascularity to the ZACHARY and MCA territories bilaterally. RIGHT ophthalmic artery is not well opacified and appears occluded. More normal-appearing LEFT ophth almic artery. This appears new since 2006. Emphysematous changes in the lung apices. Calcified granulomas. CT/CT angio headneck* [id number] IMPRESSION: 1. RIGHT ophthalmic artery appears occluded compared to the normal LEFT. Corre lation with acute RIGHT visual symptoms. 2. Less than 50% RIGHT ICA stenosis. No significant LEFT ICA stenosis. 3. Otherwise no flow-limiting intracranial stenosis. 4. Both vertebral arteries are patent. Notified Kelsy Beauchamp MD at 04/10/2023 3:44 PM.
[2023-04-10] MEDS: iohexol 350 mg/mL 500 mL Btl (per mL) IV (15:10)
--- NOTE | 2023-04-10 16:42 | P.EN_ITS ---
Event Note Event Note: Onset of symptoms at 2;20 PM ACute onset of rt eye vision loss STat Ct head and CTA head neck was requested CTA head showing rt ophthalmic art occlusion DR Mcneill notified : She asked me to verify with ophthamologist to see if TPA is indicated for such arterial occlusion, I got in touch with the [facility] transfer line, did not hear back from them. I spoke with Dr Odom, who agreed with TPA, I have notified Dr Mcneill
--- NOTE | 2023-04-10 17:07 | PC.NURSE ---
Report given to Jaida in ICU via phone. Pt transferring to ICU 11
[2023-04-10] MEDS: guaiFENesin 600 mg Tablet PO (18:17)
--- NOTE | 2023-04-10 18:29 | W.PM.EVENTAC ---
Event Note Event Note: When I went into the room to tell the patient about the tPA indication patient stated that her vision changes not something acute this has been going on for last couple of days today she just noticed mild blurriness she has not noticed complete vision loss I did discuss with her that considering chronicity of her symptoms we should not be able to give her tPA which might cause retinal hemorrhage, Dr. Mcneill is in agreement we have decided not to administer tPA at this point and treat her with just aspirin atorvastatin This was verified in front of her charge nurse Heather
[2023-04-10] MEDS: potassium chloride ER 10 mEq Tablet PO (21:12)
[2023-04-10] MEDS: ALPRAZolam 0.5 mg Tablet 1 MG PO (21:12)
[2023-04-10] MEDS: atorvastatin 40 mg Tablet 20 MG PO (21:12)
[2023-04-11] VITALS (14 sets, daily range): BP systolic 115–147; BP diastolic 72–80; PULSE 59–90; RESP 16–20; TEMP 36.3–36.8; O2SAT 93–96
[2023-04-11] MEDS: acetaminophen 500 mg Tablet 1000 MG PO ×3 (01:43→18:25)
[2023-04-11] MEDS: oxyCODONE 5 mg IR Tab/Cap 15 MG PO ×3 (02:57→20:36)
[2023-04-11] MEDS: ondansetron 2 mg/ML SDV 2 mL 4 MG IVP ×3 (03:03→21:30)
[2023-04-11] MEDS: amlodipine 5 mg Tablet PO (10:04)
[2023-04-11] MEDS: gabapentin 300 mg Capsule 600 MG PO (10:04)
[2023-04-11] MEDS: guaiFENesin 600 mg Tablet PO ×2 (10:04→18:24)
[2023-04-11] MEDS: sennosides-docusate Tablet 1 TAB PO ×2 (10:04→18:24)
[2023-04-11] MEDS: levothyroxine 100 mcg Tablet PO (10:05)
[2023-04-11] MEDS: cyanocobalamin 1,000 mcg Tablet 1000 MCG PO (10:05)
[2023-04-11] MEDS: pantoprazole DR 40 mg Tablet PO ×2 (10:06→18:24)
--- NOTE | 2023-04-11 10:37 | PC.SLP ---
MANAGER HRIS attempted to assess pt. She did not want to particpate at this time. MANAGER HRIS will try back with pt later. Questionable whether she will participate, as she was frustrated with her overall care and did not feel she had any MANAGER HRIS needs.
--- NOTE | 2023-04-11 10:48 | PC.NURSE ---
Patient refused nystatin powder this am. Patient has refused everyday according to pharmacy.
--- NOTE | 2023-04-11 10:55 | P.PN_ITS ---
Subjective Subjective: No overnight events Awaiting placement Patient is motivated to work with PT Vitals/I&O/Wt Last Vital Signs Temp 98.1 F 04/11/23 07:34 Pulse 63 04/11/23 08:16 Resp 16 04/11/23 08:16 BP 115/72 04/11/23 07:34 Pulse Ox 96 04/11/23 08:16 O2 Del Method Room Air 04/11/23 08:16 04/10/23 04/11/23 04/11/23 22:59 06:59 14:59 Intake Total 280 / 1100 840 / 1940 Balance 280 / 1100 840 / 1940 Physical Exam Narrative: Patient is awake and alert Initial plan No active distress Currently on room air She is using her phone No acute distress no shortness of breath or conversational dyspnea Blurry vision for last 3 to 4 days S1, S2 No new focal deficit Data 04/07/23 05:05 04/07/23 05:05 A&P Assessment and plan (1) Closed fracture of rib of left side: (2) Fracture, ribs: Qualifiers: Encounter type: subsequent encounter Fracture type: closed Laterality: right (3) Acute pain of right hip: (4) Lumbar stenosis with neurogenic claudication: (5) Chronic neck and back pain: (6) Cervical stenosis of spinal canal: (7) Occlusion of ophthalmic artery: Plan Patient lives alone, fell and fractured her ribs Patient is suffering from lack of motivation to work with PT I would like to do a trial off work I have only seen her in the bed for last 3 to 4 days, she requires assistance to get out of bed in the bedside commode Yesterday she started complaining of worsening of blurring of vision of her right eye she did not endorse complete blackout with decided not to give her tPA because this has been going on for last 3 to 4 days as per the patient For her rib and back pain we will continue p.o. opioids Awaiting placement Continue PT No need to repeat labs For her right ophthalmic artery occlusion I would only continue aspirin and a torvastatin, I did speak with Dr. Mcneill and Dr. Odom Full code Attestations Medical Necessity Statement*: Awaiting placement Diagnoses Closed fracture of rib of left side S22.32XA Fracture, ribs S22.49XA Encounter type: subsequent encounter Fracture type: closed Laterality: right Acute pain of right hip M25.551 Lumbar stenosis with neurogenic claudication M48.062 Chronic neck and back pain M54.2; M54.9; G89.29 Cervical stenosis of spinal canal M48.02 Occlusion of ophthalmic artery H34.9
[2023-04-11] MEDS: aspirin 325 mg EC Tablet PO (11:37)
--- NOTE | 2023-04-11 11:39 | PC.NURSE ---
Notified Dr. Beauchamp patient refused one time dose Methylphenidate HCL and Lovenox.
--- NOTE | 2023-04-11 11:51 | PC.OT ---
NEW OT EVALUATION ORDERS RECEIVED. PATIENT HAD REFUSED 2 OT EVALUATION ATTEMPTS OVER THE WEEKEND AND AGAIN ON SUNDAY. NEW ORDERS RECEIVED AND EVALUATION ATTEMPTED AT 1128; PATIENT WATCHING A TV PROGRAM AND IS UNWILLING TO ALLOW THERAPIST TO TURN DOWN TV OR MOVE THE TV SHE STATES SHE IS VERY INTERESTED IN WATCHING THIS PROGRAM. AGREEABLE TO THERAPIST ATTEMPT THIS AFTERNOON AT 1600
[2023-04-11] MEDS: atorvastatin 40 mg Tablet 20 MG PO (20:35)
[2023-04-11] MEDS: potassium chloride ER 10 mEq Tablet PO (20:36)
[2023-04-11] MEDS: ALPRAZolam 0.5 mg Tablet 1 MG PO (20:36)
[2023-04-12] VITALS (7 sets, daily range): BP systolic 122–162; BP diastolic 72–84; PULSE 51–78; RESP 16–18; TEMP 36.2–36.8; O2SAT 93–97
[2023-04-12] MEDS: acetaminophen 500 mg Tablet 1000 MG PO ×2 (01:55→10:58)
[2023-04-12] MEDS: cyanocobalamin 1,000 mcg Tablet 1000 MCG PO (08:37)
[2023-04-12] MEDS: aspirin 325 mg EC Tablet PO (08:37)
[2023-04-12] MEDS: pantoprazole DR 40 mg Tablet PO (08:37)
[2023-04-12] MEDS: amlodipine 5 mg Tablet PO (08:37)
[2023-04-12] MEDS: guaiFENesin 600 mg Tablet PO (08:37)
[2023-04-12] MEDS: levothyroxine 100 mcg Tablet PO (08:37)
[2023-04-12 09:26] LABS: SARS Covid-2 Antigen negative (Negative)
--- NOTE | 2023-04-12 09:44 | PM.DCS ---
Discharge Providers Date of Admission: 04/06/23 00:01 Date of Discharge: April 12, 2023 Attending Provider at Admission: Evelyn Mera MD Attending Provider at Discharge: Kelsy Beauchamp MD Primary Care Provider: Dany Andino MD Diagnoses at Discharge Discharge Diagnosis (1) Closed fracture of rib of left side: Status: Inactive (2) Fracture, ribs: Status: Acute Qualifiers: Encounter type: subsequent encounter Fracture type: closed Laterality: right (3) Acute pain of right hip: Status: Acute (4) Lumbar stenosis with neurogenic claudication: Status: Acute (5) Chronic neck and back pain: Status: Acute (6) Cervical stenosis of spinal canal: Status: Acute (7) Occlusion of ophthalmic artery: Status: Acute Permanent problem details: Right ophthalmic artery occlusion, chronic tPA not administered Reason for Visit Reason for Visit: PAIN ALL OVER Hospital Course Hospital Course 68-year-old female who presented to hospital with chief complaint of right hip pain, pelvis CT scan showed intact prosthesis without any misalignment, patient was reluctant to work with PT however with significant modification she was able to work with PT to some extent. Patient showed drug-seeking behavior, she was constantly asking for IV pain medications which we avoided to administer. She was kept n.p.o. regimen, she does have significant left-sided rib fractures 7- 9, she is not requiring oxygen, does not seem to be in distress, no splenic injury, hemoglobin and hemodynamics remained stable. Patient lives alone vascular rehab pursue longterm placement Please note during hospitalization patient started complaining of worsening of her blurry vision of her right eye, we did CT head with CTA head and neck which showed right ophthalmic artery occlusion, we were about to give her tPA when patient notified us that her symptoms were present for last 3 days and just got worse, she has not noticed complete vision loss she is endorsing mild worsening of blurry vision I have discussed this case with outpatient physical therapist Dr. Odom who will see her in the clinic, for now I am continuing atorvastatin and aspirin. Discontinued ibuprofen to prevent GI ulcers. Of note, patient seems to be noncompliant, she complained about eating everything in the hospital including bedside commode, food composition, not getting enough IV pain medications. It is very hard for us to motivate her to do physical therapy. Her D-dimer is not high as per age cutoff value. She seems to have sleep apnea which can cause bradycardia I will discontinue metoprolol at discharge Physical Exam Narrative: Awake and alert No new focal deficit Right eye blurry vision present No complete vision loss S1, S2 Abdomen soft Laying in bed Fatigued and lethargic On room air Discharge Data Studies Completed and Pending Completed Studies During Hospitalization Category Date Time Status CT hip LT wo con* [id number] Routine Cat Scan 04/07/23 09:28 Completed CTA head neck [CT angio headneck* [id number]] Stat Cat Scan 04/10/23 14:48 Completed Radiology Impressions Hip CT 04/07/23 09:28 IMPRESSION: Bipolar left hip prosthesis in satisfactory position. No acute findings or evidence of hardware failure. Head/Neck CTA 04/10/23 14:48 IMPRESSION: 1. RIGHT ophthalmic artery appears occluded compared to the normal LEFT. Correlation with acute RIGHT visual symptoms. 2. Less than 50% RIGHT ICA stenosis. No significant LEFT ICA stenosis. 3. Otherwise no flow-limiting intracranial stenosis. 4. Both vertebral arteries are patent. Notified Kelsy Beauchamp MD at 04/10/2023 3:44 PM. Laboratory Results WBC 2.6 10^3/uL (4.0-10.0) L 04/07/23 05:05 RBC 4.58 10^6/uL (4.1-5.3) 04/07/23 05:05 Hgb 13.7 g/dL (11.5-15.3) 04/07/23 05:05 Hct 40.1 % (37.0-47.0) 04/07/23 05:05 MCV 87.6 fl (81-99) 04/07/23 05:05 MCH 29.9 pg (28.0-34.0) 04/07/23 05:05 MCHC 34.2 g/dL (30.0-36.0) 04/07/23 05:05 RDW 12.7 % (12.1-15.1) 04/07/23 05:05 Plt Count 91 10^3/cmm (130-400) L 04/07/23 05:05 MPV 10.2 fL (7.4-10.4) 04/07/23 05:05 Neut % (Auto) 51.4 % 04/07/23 05:05 Lymph % (Auto) 40.2 % 04/07/23 05:05 [place] % (Auto) 8.4 % 04/07/23 05:05 Eos % (Auto) 0.0 % 04/07/23 05:05 Baso % (Auto) 0.0 % 04/07/23 05:05 Neut # (Auto) 1.34 10^3/uL (1.8-7.7) L 04/07/23 05:05 Lymph # (Auto) 1.1 10^3/uL (0.8-4.8) 04/07/23 05:05 [place] # (Auto) 0.2 10^3/uL (0.2-0.9) 04/07/23 05:05 Eos # (Auto) 0.0 10^3/uL (0.0-0.8) 04/07/23 05:05 Baso # (Auto) 0.0 10^3/uL (0.0-0.1) 04/07/23 05:05 Nucleated RBC % (auto) 0 % 04/07/23 05:05 Nucleated RBCs # 0.0 /100WBC 04/07/23 05:05 D-Dimer 1.10 ug/mIFEU (0-0.59) H 04/11/23 11:26 Sodium 143 mmol/L (136-145) 04/07/23 05:05 Potassium 4.1 mmol/L (3.5-5.1) 04/07/23 05:05 Chloride 109 mmol/L (98-107) H 04/07/23 05:05 Carbon Dioxide 22 mmol/L (22-29) 04/07/23 05:05 Anion Gap 16.1 (5-19) 04/07/23 05:05 BUN 13 mg/dL (8-23) 04/07/23 05:05 Creatinine 0.4 mg/dL (0.5-0.9) L 04/07/23 05:05 GFR Calculation 158.3 mL/min (90-130) H 04/07/23 05:05 Glucose 130 mg/dL (65-115) H 04/07/23 05:05 Calculated Osmolality 298 mOsm/kg (285-295) H 04/07/23 05:05 Calcium 8.4 mg/dL (8.5-10.5) L 04/07/23 05:05 Total Bilirubin 0.3 mg/dL (0.15-1.2) 04/07/23 05:05 AST 22 U/L (0-32) 04/07/23 05:05 ALT 13 U/L (0-33) 04/07/23 05:05 Alkaline Phosphatase 86 U/L (35-105) 04/07/23 05:05 Total Protein 5.5 g/dL (6.6-8.7) L 04/07/23 05:05 Albumin 3.1 g/dL (3.5-5.2) L 04/07/23 05:05 Globulin 2.4 g/dL (1.3-4.6) 04/07/23 05:05 SARS-CoV-2 Ag (Rapid) negative (Negative) 04/12/23 08:47 Vitals Last Vital Signs Temp 97.1 F L 04/12/23 08:00 Pulse 51 L 04/12/23 08:00 Resp 18 04/12/23 08:00 BP 129/79 04/12/23 08:00 Pulse Ox 97 04/12/23 08:00 O2 Del Method Room Air 04/12/23 08:00 Discharge Plan Discharge Patient Disposition: Xfer SNF Condition: Stable Prescriptions: New atorvastatin 40 mg tablet 40 mg PO DAILY Qty: 30 0RF Continued hydrocodone-acetaminophen 10-325 mg tablet 1 tab PO BID PRN (Reason: pain) 30 Days Qty: 30 0RF (DME) ASO See Rx Instructions .Route .MEDSUPPLY Qty: 1 0RF Rx Instructions: As directed magnesium oxide 400 mg (241.3 mg magnesium) tablet 400 mg PO BEDTIME amlodipine 5 mg tablet 5 mg PO DAILY potassium chloride 10 mEq tablet extended release 10 meq PO BEDTIME furosemide 40 mg tablet 20 mg PO DAILY PRN (Reason: Edema) garlic 1,000 mg capsule 1,000 mg PO DAILY red yeast rice 600 mg tablet 600 mg PO BID Rx Instructions: give with meal/snack mecobalamin (vitamin B12) 1,000 mcg tablet,chewable 1,000 mcg PO DAILY diphenhydramine HCl [Allergy Relief(diphenhydramin)] 25 mg tablet 25 mg PO QID PRN (Reason: Allergy Symptoms) loperamide [Imodium A-D] 2 mg capsule 2 mg PO QID PRN (Reason: Diarrhea) alprazolam [Xanax] 2 mg tablet 2 mg PO TID PRN (Reason: unknown) albuterol sulfate [ProAir HFA] 90 mcg/actuation HFA aerosol inhaler 2 puff inhalation QID PRN (Reason: Shortness Of Breath) (DME) ASO See Rx Instructions .Route .MEDSUPPLY Qty: 1 0RF Rx Instructions: As directed (DME) Kirsten AFO left See Rx Instructions .Route .MEDSUPPLY Qty: 1 0RF Rx Instructions: As directed oxybutynin chloride 10 mg tablet extended release 24hr 10 mg PO DAILY pantoprazole 40 mg tablet,delayed release (DR/EC) 40 mg PO BID MDD 2 30 Days Qty: 60 3RF ondansetron HCl [Zofran] 4 mg tablet 4 mg PO Q6H PRN (Reason: nausea and vomiting) Qty: 30 3RF Rx Instructions: 1 tablet every 6 hours as needed for nausea triamcinolone acetonide 0.025 % Cream 1 applic TOPICAL BID PRN (Reason: unknown) Nxle-Uijd-Gjzsa (vit C-biotin) 50 mg -1,250 mcg Tablet,Chewable 2 tab PO DAILY Probichew 21 billion cell - 1 gram Tablet,Chewable 2 tab PO DAILY Elderberry Gummy 1 cap PO DAILY@12 gabapentin 600 mg tablet 600 mg PO TID levothyroxine 100 mcg tablet 100 mcg PO DAILY Fish Oil 300-1,000 mg Capsule 1 cap PO BEDTIME CoQ-10 100 mg Capsule 200 mg PO DAILY Daily Fiber 0.4 gram Capsule 0.4 g PO DAILY Adult Aspirin Regimen 81 mg tablet,delayed release (DR/EC) 81 mg PO DAILY Qty: 60 0RF Discontinued metoprolol tartrate 25 mg tablet 25 mg PO Q12H ibuprofen 800 mg Tablet 800 mg PO BID Discharge Orders: Discharge Order (Routine); Ordered 04/12/23 Ordered By: Kelsy Beauchamp Referrals: [facility] [Outside] Dany Odom MD [Physician] - 1-3 days (They can see her today as well I spoke with Dr. Dany Carmona) Dany Andino MD [Primary Care Provider] - Discharge Diet: Cardiac Discharge Activity: Increase activity as tolerated and Use walker/crutches as instructed Patient Instructions: Atorvastatin (By mouth), Opioid Safety, Pain Management Discharge Attestations Time Spent in Discharge Care*: greater than 30 min Quality Metrics Clinical Quality Measures [ No reported AMI, CVA or VTE this stay] Coding Level of Care Code Acute Code for Chg Fwd Diagnoses Closed fracture of rib of left side S22.32XA Fracture, ribs S22.49XA Encounter type: subsequent encounter Fracture type: closed Laterality: right Acute pain of right hip M25.551 Lumbar stenosis with neurogenic claudication M48.062 Chronic neck and back pain M54.2; M54.9; G89.29 Cervical stenosis of spinal canal M48.02 Occlusion of ophthalmic artery H34.9
[2023-04-12] MEDS: oxyCODONE 5 mg IR Tab/Cap 15 MG PO (10:58)
[2023-04-12] MEDS: ondansetron 2 mg/ML SDV 2 mL 4 MG IVP (11:01)
--- NOTE | 2023-04-12 11:04 | PC.NURSE ---
This nurse went into patient room to give the scheduled dose of lovenox. The nurse told the patient that it would be an injection in the abdominal region. The patient then stated she didn't want the injection. This nurse educated patient on the importance of lovenox due to the occlusion of the artery in her eye. This nurse asked another nurse to do reinforcement of education. Reinforcement was given and patient continued to refuse. This nurse notified MD. No further orders at this time.
== END 2023-04-12 13:14 | disposition skilled nursing facility (03) ==
LOC: ER 04-06 00:01 → MEDSURG 04-06 00:41
PROVIDERS: Admitting Provider Internal Medicine; Emergency Provider Emergency Medicine; PCP Family Medicine; Visit Provider Internal Medicine
DX: S22.42XA Multiple fractures of ribs, left side, initial encounter for closed fracture (principal); W19.XXXA Unspecified fall, initial encounter; M25.551 Pain in right hip; I10 Essential (primary) hypertension; B19.20 Unspecified viral hepatitis C without hepatic coma; Z96.641 Presence of right artificial hip joint; Z79.82 Long term (current) use of aspirin; H53.8 Other visual disturbances; Z79.891 Long term (current) use of opiate analgesic; G62.9 Polyneuropathy, unspecified; M48.062 Spinal stenosis, lumbar region with neurogenic claudication; M54.2 Cervicalgia; G89.29 Other chronic pain; I70.8 Atherosclerosis of other arteries
CPT/HCPCS: 36415; 70496; 70498; 73502; 73700; 80053; 85025; 85378; 87426; 92523; 92610; 96372; 96374; 96375; 96376; 97116; 97161; 97166; 97530; 99222; 99284; 99285; G0378; J1170; J1650; J2405; Q9967

== ENCOUNTER 2023-11-13 18:02 | Observation (INO) | payer MEDICARE, MEDICAID, SELFPAY ==
[2023-11-13 18:10] VITALS: BP 130/80; PULSE 86; RESP 18; TEMP 36.7; O2SAT 97; BMI 25.7
--- NOTE | 2023-11-13 19:34 | XRR_ITS ---
PROCEDURE INFORMATION: Exam: XR Left Foot Exam date and time: 11/13/2023 7:49 PM Age: 68 years old Clinical indication: Injury or trauma; Fall; Blunt trauma; Foot; Left TECHNIQUE: Imaging protocol: Radiologic exam of the left foot. Views: 3 or more views. COMPARISON: CR XR foot LT min 3V* [id number] 05/24/2021 1:33 PM FINDINGS: Bones/joints: Normal. Soft tissues: Normal. XR/XR foot LT min 3V* [id number] IMPRESSION: No acute findings.
--- NOTE | 2023-11-13 19:34 | XRR_ITS ---
PROCEDURE INFORMATION: Exam: XR Chest Exam date and time: 11/13/2023 7:39 PM Age: 68 years old Clinical indication: Injury or trauma; Fall; Blunt trauma (contusions or hematomas) TECHNIQUE: Imaging protocol: Radiologic exam of the chest. Views: 1 view. COMPARISON: CR XR ribs LT mn 3V w CXR1V [id number] 04/02/2023 3:30 PM FINDINGS: Lungs: Irregular opacities in the left lung base laterally. Pleural spaces: Unremarkable. No pleural effusion. No pneumothorax. Heart/Mediastinum: Unremarkable. No cardiomegaly. Bones/joints: Unremarkable. XR/XR chest 1V portable [id number] IMPRESSION: Irregular opacities in the left lung base laterally.
--- NOTE | 2023-11-13 19:34 | XRR_ITS ---
PROCEDURE INFORMATION: Exam: XR Pelvis Exam date and time: 11/13/2023 7:45 PM Age: 68 years old Clinical indication: Injury or trauma; Fall; Blunt trauma (contusions or hematomas); Bilateral; Pelvic region; Prior surgery; Surgery date: 6+ months; Surgery type: Lt hip TECHNIQUE: Imaging protocol: Radiologic exam of the pelvis. Views: 1 or 2 view. COMPARISON: CR XR hip LT 2-3V wo/w pel* [id number] 04/04/2023 3:33 PM FINDINGS: Bones/joints: Left hip arthroplasty redemonstrated without evidence of hardware failure or loosening. No acute fracture. Soft tissues: Unremarkable. XR/XR pelvis 1-2V* [id number] IMPRESSION: 1. Left hip arthroplasty redemonstrated without evidence of hardware failure or loosening. 2. No acute fracture.
--- NOTE | 2023-11-13 19:34 | CTR_ITS ---
PROCEDURE INFORMATION: Exam: CT Cervical Spine Without Contrast Exam date and time: 11/13/2023 7:57 PM Age: 68 years old Clinical indication: Injury or trauma; Fall; Blunt trauma TECHNIQUE: Imaging protocol: Computed tomography of the cervical spine without contrast. Radiation optimization: All CT scans at this facility use at least one of these dose optimization techniques: automated exposure control; mA and/or kV adjustment per patient size (includes targeted exams where dose is matched to clinical indication); or iterative reconstruction. COMPARISON: CT cervical spin wo con* [id number] 12/01/2022 9:12 PM RADIATION DOSE METRICS: Total DLP (mGy-cm): 236.1 FINDINGS: Bones/joints: Severe degenerative disc disease at C5-C6 and C6-C7. Moderate neural foraminal narrowing on the left at C3-C4. Lungs: Lung apices are normal. Soft tissues: Unremarkable. CT/CT cervical spin wo con* [id number] IMPRESSION: 1. No acute cervical spine fracture or listhesis. 2. Multilevel degenerative changes, as above.
--- NOTE | 2023-11-13 19:34 | XRR_ITS ---
PROCEDURE INFORMATION: Exam: XR Right Shoulder Exam date and time: 11/13/2023 7:42 PM Age: 68 years old Clinical indication: Injury or trauma; Fall; Blunt trauma (contusions or hematomas); Shoulder; Right TECHNIQUE: Imaging protocol: Radiologic exam of the right shoulder. Views: 2 or more views. COMPARISON: CR (CHEST, ) 11/13/2023 7:39 PM FINDINGS: Bones/joints: Normal. Soft tissues: Normal. XR/XR shoulder RT min 2V* [id number] IMPRESSION: No acute findings.
--- NOTE | 2023-11-13 19:34 | CTR_ITS ---
PROCEDURE INFORMATION: Exam: CT Head Without Contrast Exam date and time: 11/13/2023 7:57 PM Age: 68 years old Clinical indication: Injury or trauma; Fall; Blunt trauma (contusions or hematomas) TECHNIQUE: Imaging protocol: Computed tomography of the head without contrast. Radiation optimization: All CT scans at this facility use at least one of these dose optimization techniques: automated exposure control; mA and/or kV adjustment per patient size (includes targeted exams where dose is matched to clinical indication); or iterative reconstruction. COMPARISON: CT angio headneck* [id number] 04/10/2023 3:00 PM RADIATION DOSE METRICS: Total DLP (mGy-cm): 236.1 FINDINGS: Brain: Subcortical and periventricular white matter changes consistent with small-vessel ischemic disease in the appropriate clinical setting. Small-vessel ischemic disease. Cerebral ventricles: No ventriculomegaly. Paranasal sinuses: Visualized sinuses are unremarkable. No fluid levels. Mastoid air cells: Visualized mastoid air cells are well aerated. Bones/joints: Unremarkable. No acute fracture. Soft tissues: Unremarkable. CT/CT head wo [facility]* [id number] IMPRESSION: 1. No acute intracranial abnormality. 2. Small-vessel ischemic disease.
[2023-11-13 19:38] VITALS: BP 108/63; PULSE 77; RESP 18; O2SAT 95
[2023-11-13 20:00] VITALS: BP 148/90; PULSE 75; RESP 18; O2SAT 95
--- NOTE | 2023-11-13 20:29 | XRR_ITS ---
PROCEDURE INFORMATION: Exam: XR Right Knee Exam date and time: 11/13/2023 8:33 PM Age: 68 years old Clinical indication: Injury or trauma; Fall; Blunt trauma; Knee; Right TECHNIQUE: Imaging protocol: Radiologic exam of the right knee. Views: 3 views. COMPARISON: No relevant prior studies available. FINDINGS: Bones/joints: Normal. Soft tissues: Normal. XR/XR knee RT 3V* [id number] IMPRESSION: No acute findings.
[2023-11-13 20:30] VITALS: BP 115/83; PULSE 75; RESP 16; O2SAT 94
--- NOTE | 2023-11-13 20:30 | ED_ITS ---
HPI - Fall 2 General: Chief Complaint: Fall Stated Complaint: back and knee pain Time Seen by Provider: 11/13/23 19:12 Source: patient and EMS Mode of arrival: EMS Limitations: no limitations History of Present Illness: 68-year-old female states she is had mul tiple falls over the last 2 to 3 days. States she had a history of stroke along with a left hip fracture states she is felt very weak she complains of bilateral shoulder pain along with right knee pain left foot pain states she has generalized pain everywhere but the main pain is there. Denies any loss conscious but does have some head neck pain. 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, chronic tPA not administered Acute pain of right hip Fracture, ribs Inadequate pain control Lumbar stenosis with neurogenic claudication Chronic neck and back pain Cervical stenosis of spinal canal Lumbar stenosis with neurogenic claudication Left foot drop Chronic UTI Hypertension Hepatitis C Panic disorder Family History Father CAD (coronary artery disease) Psychiatric illness Mother CAD (coronary artery disease) Hypertension Psychiatric illness Grandmother Cancer Psychiatric illness Brother Cancer Psychiatric illness Social History Second hand smoke exposure: Yes Alcohol intake: former Substance/Drug Use: current Physical Exam 2 Const: COMMON NORMALS: no acute distress, patient oriented x3 and healthy appearing HENMT: COMMON NORMALS: normocephalic and atraumatic HEAD & SCALP: n ormocephalic and atraumatic Eye: COMMON NORMALS: Equal, round and reactive pupils present PUPIL: Yes Equal, round and reactive pupils present Neck/C-Spine: COMMON NORMALS: full ROM and supple Chest: COMMONS NORMALS: normal inspection of the chest and normal palpation of entire chest wall Resp: COMMON NORMALS: normal respiratory effort, No retractions, No use of accessory muscles and clear to auscultation bilaterally AUSCULTATION: clear to auscultation bilaterally Cardio: COMMON NORMALS: regular rate, regular rhythm and No murmurs present (Cardio) RATE: regular rate RHYTHM: regular rhythm Extremity: COMMON NORMALS: full ROM Neuro: COMMON NORMALS: patient oriented x3, moves all extremities and no focal motor deficits Psych: COMMON NORMALS: mental status grossly normal, Normal thought process present and cooperative THOUGHT PROCESS: Normal thought process present Skin: COMMON NORMALS: no rashes or lesions noted and no wounds GENERAL SKIN EXAM: no rashes or lesions noted Course 2 Vital Signs: Vital signs: Vital Signs Temperature 98.1 F 11/13/23 18:10 Pulse Rate 73 11/13/23 21:00 Respiratory Rate 16 11/13/23 21:00 Blood Pressure 124/73 11/13/23 21:00 Pulse Oximetry 94 11/13/23 21:00 Oxygen Delivery Me thod Room Air 11/13/23 21:00 MDM - Fall Medical Decision Making Patient presents with generalized weakness along with multiple falls imaging here is all normal blood work is normal as well she states she is not able ambulate or care for herself I spoke to the hospitalist will admit for her weakness. Medical Records I reviewed the patient's medical records. Lab Data I reviewed the patient's lab results. 11/13/23 20:30 11/13/23 20:30 Radiology Impressions Cervical Spine CT 11/13/23 19:34 IMPRESSION: 1. No acute cervical spine fracture or listhesis. 2. Multilevel degenerative changes, as above. Chest X-Ray 11/13/23 19:34 IMPRESSION: Irregular opacities in the left lung base laterally. Foot X-Ray 11/13/23 19:34 IMPRESSION: No acute findings. ADDENDUM: 11/13/23 2017 On further review of the images there appears to be a cortical irregularity along the lateral aspect of the 4th metatarsal neck and possibly the 5th metatarsal neck though this is only seen on one view. Correlate with point tenderness as these may represent subtle nondisplaced fractures. Head CT 11/13/23 19:34 IMPRESSION: 1. No acute intracranial abnormality. 2. Small-vessel ischemic disease. Pelvis X-Ray 11/13/23 19:34 IMPRESSION: 1. Left hip arthroplasty redemonstrated without evidence of hardware failure or loosening. 2. No acute fracture. Shoulder X-Ray 11/13/23 19:34 IMPRESSION: No acute findings. Knee X-Ray 11/13/23 20:29 IMPRESSION: No acute findings. Laboratory Results WBC 6.77 10^3/uL (3.29-11.43) 11/13/23 20:30 RBC 5.09 10^6/uL (3.85-5.65) 11/13/23 20:30 Hgb 14.80 g/dL (11.27-16.99) 11/13/23 20:30 Hct 45.1 % (36-47) 11/13/23 20:30 MCV 88.6 fl (85-98) 11/13/23 20:30 MCH 29.1 pg (27-33) 11/13/23 20:30 MCHC 32.8 g/dL (30-55) 11/13/23 20:30 RDW 12.9 % (12.1-15.1) 11/13/23 20:30 Plt Count 97 10^3/cmm (157-399) L 11/13/23 20:30 MPV 10.5 fL (7.4-10.4) H 11/13/23 20:30 Neut % (Auto) 68.7 % 11/13/23 20:30 Lymph % (Auto) 22.9 % 11/13/23 20:30 Crawford % (Auto) 8.1 % 11/13/23 20:30 Eos % (Auto) 0.0 % 11/13/23 20:30 Baso % (Auto) 0.0 % 11/13/23 20:30 Neut # (Auto) 4.65 10^3/uL (1.8-7.7) 11/13/23 20:30 Lymph # (Auto) 1.6 10^3/uL (0.8-4.8) 11/13/23 20:30 Crawford # (Auto) 0.6 10^3/uL (0.2-0.9) 11/13/23 20:30 Eos # (Auto) 0.0 10^3/uL (0.0-0.8) 11/13/23 20:30 Baso # (Auto) 0.0 10^3/uL (0.0-0.1) 11/13/23 20:30 Nucleated RBC % (auto) 0 % 11/13/23 20:30 Nucleated RBCs # 0.0 /100WBC 11/13/23 20:30 Sodium 142 mmol/L (136-145) 11/13/23 20:30 Potassium 4.4 mmol/L (3.5-5.1) 11/13/23 20:30 Chloride 109 mmol/L (98-107) H 11/13/23 20:30 Carbon Dioxide 24 mmol/L (22-29) 11/13/23 20:30 Anion Gap 13.4 (5-19) 11/13/23 20:30 BUN 19 mg/dL (8-23) 11/13/23 20:30 Creatinine 0.6 mg/dL (0.5-0.9) 11/13/23 20:30 GFR Calculation 99.1 mL/min (90-130) 11/13/23 20:30 Glucose 98 mg/dL (65-115) 11/13/23 20:30 Calculated Osmolality 296 mOsm/kg (285-295) H 11/13/23 20:30 Calcium 9.7 mg/dL (8.5-10.5) 11/13/23 20:30 XR interpretation done by ED provider, pending radiology final review Other Data I personally reviewed and interpreted the following: Discharge Plan Discharge Patient Disposition: Admitted As Inpatient Clinical Impression: Generalized weakness, Multiple falls Condition: Stable Prescriptions: No Action hydrocodone-acetaminophen 10-325 mg tablet 1 tab PO BID PRN (Reason: pain) 30 Days Qty: 30 0RF (DME) ASO See Rx Instructions .Route .MEDSUPPLY Qty: 1 0RF Rx Instructions: As directed magnesium oxide 400 mg (241.3 mg magnesium) tablet 400 mg PO BEDTIME amlodipine 5 mg tablet 5 mg PO DAILY potassium chloride 10 mEq tablet extended release 10 meq PO BEDTIME furosemide 40 mg tablet 20 mg PO DAILY PRN (Reason: Edema) garlic 1,000 mg capsule 1,000 mg PO DAILY red yeast rice 600 mg tablet 600 mg PO BID Rx Instructions: give with meal/snack mecobalamin (vitamin B12) 1,000 mcg tablet,chewable 1,000 mcg PO DAILY diphenhydramine HCl [Allergy Relief(diphenhydramin)] 25 mg tablet 25 mg PO QID PRN (Reason: Allergy Symptoms) loperamide [Imodium A-D] 2 mg capsule 2 mg PO QID PRN (Reason: Diarrhea) alprazolam [Xanax] 2 mg tablet 2 mg PO TID PRN (Reason: unknown) albuterol sulfate [ProAir HFA] 90 mcg/actuation HFA aerosol inhaler 2 puff inhalation QID PRN (Reason: Shortness Of Breath) (DME) ASO See Rx Instructions .Route .MEDSUPPLY Qty: 1 0RF Rx Instructions: As directed (DME) Kirsten AFO left See Rx Instructions .Route .MEDSUPPLY Qty: 1 0RF Rx Instructions: As directed oxybutynin chloride 10 mg tablet extended release 24hr 10 mg PO DAILY pantoprazole 40 mg tablet,delayed release (DR/EC) 40 mg PO BID MDD 2 30 Days Qty: 60 3RF ondansetron HCl [Zofran] 4 mg tablet 4 mg PO Q6H PRN (Reason: nausea and vomiting) Qty: 30 3RF Rx Instructions: 1 tablet every 6 hours as needed for nausea triamcinolone acetonide 0.025 % Cream 1 applic TOPICAL BID PRN (Reason: unknown) Okcp-Frrd-Swzee (vit C-biotin) 50 mg -1,250 mcg Tablet,Chewable 2 tab PO DAILY Probichew 21 billion cell - 1 gram Tablet,Chewable 2 tab PO DAILY Elderberry Gummy 1 cap PO DAILY@12 gabapentin 600 mg tablet 600 mg PO TID levothyroxine 100 mcg tablet 100 mcg PO DAILY Fish Oil 300-1,000 mg Capsule 1 cap PO BEDTIME CoQ-10 100 mg Capsule 200 mg PO DAILY Daily Fiber 0.4 gram Capsule 0.4 g PO DAILY atorvastatin 40 mg tablet 40 mg PO DAILY Qty: 30 0RF Adult Aspirin Regimen 81 mg tablet,delayed release (DR/EC) 81 mg PO DAILY Qty: 60 0RF Referrals: Dany Andino MD [Primary Care Provider] - Coding Level of Care Code ED Library Assistant for Steph Stewart
[2023-11-13 20:39] LABS: Hematocrit 45.1 % (36-47); Lymphocytes # 1.6 10^3/uL (0.8-4.8); Lymphocytes % 22.9 %; Mean Corpuscular HGB Conc 32.8 g/dL (30-55); Mean Corpuscular Hemoglobin 29.1 pg (27-33); Mean Corpuscular Volume 88.6 fl (85-98); Mean Platelet Volume 10.5 fL (7.4-10.4); Monocytes # 0.6 10^3/uL (0.2-0.9); Monocytes % 8.1 %; Neutrophils # 4.65 10^3/uL (1.8-7.7); Neutrophils % 68.7 %; Nucleated Red Blood Cells % 0 %; Platelet Count 97 10^3/cmm (157-399); Red Blood Count 5.09 10^6/uL (3.85-5.65); Red Cell Distribution Width 12.9 % (12.1-15.1); White Blood Count 6.77 10^3/uL (3.29-11.43)
[2023-11-13 20:55] LABS: Anion Gap 13.4 (5-19); Blood Urea Nitrogen 19 mg/dL (8-23); Calcium 9.7 mg/dL (8.5-10.5); Carbon Dioxide 24 mmol/L (22-29); Chloride 109 mmol/L (98-107); Creatinine Clr Calc Pharmacy 62.9019; Glomerular Filtration Rate 99.1 mL/min (90-130); Glucose 98 mg/dL (65-115); Osmolality Calculated 296 mOsm/kg (285-295); Potassium 4.4 mmol/L (3.5-5.1); Sodium 142 mmol/L (136-145)
[2023-11-13 21:00] VITALS: BP 124/73; PULSE 73; RESP 16; O2SAT 94
--- NOTE | 2023-11-13 21:34 | PC.NURSE ---
Patient took off blood pressure cuff and states she does not want it on. Patient also states she does not like the hospital gowns and does not want to wear one. She will wear what she has on.
[2023-11-13] MEDS: sodium chloride 0.9% 1,000 ML 999 ML IV (21:43)
[2023-11-13] MEDS: cefTRIAXone 1,000 MG in sodium chloride 0.9% (plus) 50 ML 100 MG IV (21:46)
[2023-11-13 22:51] VITALS: RESP 17
[2023-11-13] MEDS: HYDROmorphone 1 mg/mL INJ 1 mL IVP (22:51)
--- NOTE | 2023-11-13 23:13 | PC.NURSE ---
Patient able to transfer with assistance to bedside commode.
--- NOTE | 2023-11-13 23:38 | P.HP_ITS ---
Providers/Chief Complaint 2 Admitting Physician: Abner Cevallos MD Primary Care Provider: Dany Andino MD Chief Complaint: back and knee pain History of Present Illness Lorena Murray is a 68 year old female history of cervical disc disease, her history of cervical spinal stenosis, has a history of lumbar disc disease, lumbar stenosis with neurogenic claudication, history of neuropathy, history of left hip fracture, history of rib fractures, hypertension, neuropathy, anxiety, hypertension, history of CVA with chronic left-sided weakness, left hand in a sling with flexion contracture, left lower extremity weakness which is chronic, who lives at home, has a in-home caregiver, presents [facility] due to frequent falls, multiple pain complaints, pain with ambulation,. Patient tells me that over the last few days, she has had a couple of falls, no significant head trauma, no loss of consciousness, but she has been having severe right shoulder pain, right knee pain, bilateral feet pain, neck pain, she tells me she hurts all over, she takes hydrocodone, alprazolam which does not really help with her pain and anxiety. She tells me that she can ambulate because she is in so much pain, her knees give out on her, she tells me that she has a high pain, tolerance, and out of the pain medications she has been on the past have helped, denies any facial droop no slurring of words, no focal weakness, no productive or receptive aphasia, she feels weak all over, she tells me that she can ambulate at home, due to severe pain, generalized weakness, both knees giving out on her Review of Systems 2 Card: Denies: chest pain Resp: Denies: dyspnea GI: Denies: abdominal pain Musc: Reports: neck pain, back pain and extremity pain Neuro: Reports: weakness in extremities, difficulty walking and frequent falls; Denies: headache(s), numbness in extremities, sensory changes, dizziness, confusion or difficulty communicating thoughts Medications/Allergies Home Medications Medication Instructions Recorded Confirmed Last Taken Type pantoprazole 40 mg tablet,delayed 40 mg PO BID 30 days #60 tabs 11/11/19 04/06/23 Unknown Rx release albuterol sulfate 90 mcg/actuation 2 puff inhalation QID PRN 09/02/20 04/06/23 Unknown History aerosol inhaler (ProAir HFA) Shortness Of Breath alprazolam 2 mg tablet (Xanax) 2 mg PO TID PRN unknown 09/02/20 04/06/23 01/08/21 History amlodipine 5 mg tablet 5 mg PO DAILY 09/02/20 04/06/23 01/08/21 History diphenhydramine HCl 25 mg tablet 25 mg PO QID PRN Allergy Symptoms 09/02/20 04/06/23 Unknown History (Allergy Relief (diphenhydramine)) furosemide 40 mg tablet 20 mg PO DAILY PRN Edema 09/02/20 04/06/23 Unknown History garlic 1,000 mg capsule 1,000 mg PO DAILY 09/02/20 04/06/23 Unknown History loperamide 2 mg capsule (Imodium 2 mg PO QID PRN Diarrhea 09/02/20 04/06/23 01/08/21 History A-D) magnesium oxide 400 mg (241.3 mg 400 mg PO BEDTIME 09/02/20 04/06/23 01/07/21 History magnesium) tablet mecobalamin (vitamin B12) 1,000 1,000 mcg PO DAILY 09/02/20 04/06/23 Unknown History mcg chewable tablet potassium chloride 10 mEq 10 meq PO BEDTIME 09/02/20 04/06/23 Unknown History tablet,extended release red yeast rice 600 mg tablet 600 mg PO BID 09/02/20 04/06/23 01/08/21 History Elderberry Gummy 1 cap PO DAILY@12 09/24/20 04/06/23 Unknown History bacillus coagulans 21 billion 2 tab PO DAILY 09/24/20 04/06/23 Unknown History cell-inulin 1 gram chewable tablet (Probichew) triamcinolone acetonide 0.025 % 1 applic topical BID PRN unknown 09/24/20 04/06/23 Unknown History topical cream vitamin C 50 mg-biotin 1,250 mcg 2 tab PO DAILY 09/24/20 04/06/23 01/08/21 History chewable tablet (Zudv-Uznd-Fwnzo (vit C-biotin)) ASO #1 ea 02/02/21 04/06/23 Unknown Rx ASO #1 ea 04/21/21 04/06/23 Unknown Rx [place] AFO left #1 ea 04/25/21 04/06/23 Unknown Rx hydrocodone 10 mg-acetaminophen 1 tab PO BID PRN pain 30 days #30 05/18/21 04/06/23 Unknown Rx 325 mg tablet tabs ondansetron HCl 4 mg tablet 4 mg PO Q6H PRN nausea and 05/20/21 04/06/23 Unknown Rx (Zofran) vomiting #30 tabs oxybutynin chloride 10 mg 10 mg PO DAILY 09/27/21 04/06/23 Unknown History tablet,extended release 24 hr coenzyme Q10 100 mg capsule 200 mg PO DAILY 04/06/23 04/06/23 Unknown History (CoQ-10) gabapentin 600 mg tablet 600 mg PO TID 04/06/23 04/06/23 Unknown History levothyroxine 100 mcg tablet 100 mcg PO DAILY 04/06/23 04/06/23 Unknown History omega 9-obr-qgv-fish oil 300 1 cap PO BEDTIME 04/06/23 04/06/23 Unknown History mg-1,000 mg capsule (Fish Oil) psyllium husk 0.4 gram capsule 0.4 g PO DAILY 04/06/23 04/06/23 Unknown History (Daily Fiber) aspirin 81 mg tablet,delayed 81 mg PO DAILY #60 tabs 04/12/23 04/06/23 01/08/21 Rx release (Adult Aspirin Regimen) atorvastatin 40 mg tablet 40 mg PO DAILY #30 tabs 04/12/23 Unknown Rx Allergies Allergy/AdvReac Type Severity Reaction Status Date / Time ketorolac [From Toradol] Allergy Intermediate makes me Verified 04/06/23 08:35 sweat acetaminophen [From Percocet] Allergy Unknown Verified 04/06/23 08:35 codeine Allergy Unknown Verified 04/06/23 08:35 Macrolide Antibiotics Allergy Unknown Verified 04/06/23 08:35 oxycodone [From OxyContin] Allergy Unknown Verified 04/06/23 08:35 Penicillins Allergy Unknown Verified 04/06/23 08:35 sulfamethoxazole Allergy Unknown Verified 04/06/23 08:35 [From Bactrim] tramadol [From Ultram] Allergy Unknown Verified 04/06/23 08:35 trimethoprim [From Bactrim] Allergy Unknown Verified 04/06/23 08:35 PFSH Acute 2 PFSH: Medical History 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, chronic tPA not administered Acute pain of right hip Fracture, ribs Inadequate pain control Lumbar stenosis with neurogenic claudication Chronic neck and back pain Cervical stenosis of spinal canal Lumbar stenosis with neurogenic claudication Left foot drop Chronic UTI Hypertension Hepatitis C Panic disorder Family History Father CAD (coronary artery disease) Psychiatric illness Mother CAD (coronary artery disease) Hypertension Psychiatric illness Grandmother Cancer Psychiatric illness Brother Cancer Psychiatric illness Social History Second hand smoke exposure: Yes Alcohol intake: former Substance/Drug Use: current Vitals/I&O/Wt Last Vital Signs Temp 98.1 F 11/13/23 18:10 Pulse 73 11/13/23 21:00 Resp 17 11/13/23 22:51 BP 124/73 11/13/23 21:00 Pulse Ox 94 11/13/23 21:00 O2 Del Method Room Air 11/13/23 21:00 11/13/23 11/13/23 11/14/23 14:59 22:59 06:59 Intake Total 1050 / 1050 Balance 1050 / 1050 Weight last 48 hrs Weight 68.039 kg Physical Exam 2 Const: COMMON NORMALS: no acute distress and patient oriented x3 HENMT: COMMON NORMALS: normocephalic HEAD & SCALP: normocephalic Eye: COMMON NORMALS: Equal, round and reactive pupils present and EOMs intact bilaterally Neck/C-Spine: COMMON NORMALS: no JVD Resp: COMMON NORMALS: normal respiratory effort, No retractions, No use of accessory muscles and clear to auscultation bilaterally AUSCULTATION: clear to auscultation bilaterally Cardio: COMMON NORMALS: no JVD, regular rate, regular rhythm, S1 normal heart sound present and S2 normal heart sound present RATE: regular rate RHYTHM: regular rhythm HEART SOUNDS: S1 normal heart sound present and S2 normal heart sound present GI: COMMON NORMALS: Normal to inspection, nondistended, normoactive bowel sounds present, Soft to palpation and non-tender Extremity: COMMON NORMALS: no pedal edema Neuro: COMMON NORMALS: patient oriented x3 and CN's II-XII intact bilaterally OTHER: Left upper extremity in a sling, chronically, flexion contracture chronically weak from her's history of CVA, left lower extremity chronically weak, from her history of CVA, left-sided hemiplegia, left calf swelling Psych: COMMON NORMALS: mental status grossly normal Data 11/13/23 20:30 11/13/23 20:30 A&P Assessment and plan (1) Acute pain: (2) Generalized weakness: (3) Multiple falls: (4) Cervical stenosis of spinal canal: (5) Lumbar stenosis with neurogenic claudication: (6) Lumbar stenosis with neurogenic claudication: Plan Acute pain -Intractable pain -Right knee, right shoulder, right hip, acute neck pain -Chronic history of lumbar disc disease, lumbar stenosis, cervical disc disease, cervical stenosis plan: -Pain control -Dilaudid 1 mg IV push every 4 hours as needed -PT OT -ESR, BEV, rheumatologic panel -Multiple falls, will consider doing further imaging based on clinical progress -As of has left calf swelling, venous ultrasound -UA is pending -History of prior CVA with chronic left-sided weakness -Solu-Medrol 125 followed by 40 mg of prednisone daily for anti-inflammatory effect -DNR/DNI -Lovenox for DVT prophylaxis Attestations 2 Medical Necessity Statement*: Patient requires hospitalization, inpatient, greater than 2 midnights, for multiple falls, generalized weakness, bilateral knee pain, intractable pain Diagnoses Acute pain R52 Generalized weakness R53.1 Multiple falls R29.6 Cervical stenosis of spinal canal M48.02 Lumbar stenosis with neurogenic claudication M48.062
[2023-11-14] VITALS (11 sets, daily range): BP systolic 133–163; BP diastolic 65–85; PULSE 82–112; RESP 16–20; TEMP 36.5–36.8; O2SAT 92–96; BMI 33.3
[2023-11-14 00:17] LABS: Troponin(5th) Baseline 12 ng/L (0-10)
--- NOTE | 2023-11-14 02:34 | USCV_ITS ---
Lorena Murray Age: 68 Gender: F : 1955 Exam Date: 11/14/2023 07:18 Ordering Phys: Abner Cevallos MD Technologist: SELENE Exam Location: [facility] [place] Indication: Swelling HISTORY: Lower extremity swelling. PROCEDURES: Venous duplex imaging was performed in only the left lower extremity. The following venous structures were evaluated: common femoral vein, profunda vein, proximal portion of the greater saphenous vein, superficial femoral vein, and the popliteal vein. In addition, the posterior tibial and peroneal trunk were evaluated. Serial compression, augmentation maneuvers, and spectral Doppler flow evaluation were performed. FINDINGS: Normal 2-D Doppler and augmentation and compressibility throughout the lower extremity venous structures. Additional imaging through the proximal calf veins also reveals no thrombus. Limited evaluation of the greater saphenous vein is patent with no thrombus. CONCLUSIONS No evidence of left lower extremity DVT. Luis Sanabria MD (Electronically Signed) Final Date: 14 November 2023 09:23 S
[2023-11-14 03:18] LABS: Erythrocyte Sedimentation Rate 25 mm/hr (0-15)
[2023-11-14 03:31] LABS: Troponin 5 2HR 11.51 ng/L (0-10)
[2023-11-14 03:38] LABS: Troponin 5 2HR Delta -0.49 ABS# (0-10)
[2023-11-14] MEDS: HYDROmorphone 1 mg/mL INJ 1 mL IVP ×3 (03:49→18:08)
[2023-11-14 04:00] LABS: Alanine Aminotransferase 18 U/L (0-33); Albumin Level 3.5 g/dL (3.5-5.2); Alkaline Phosphatase 83 U/L (35-105); Aspartate Amino Transferase 22 U/L (0-32); C Reactive Protein 9.4 mg/L (0.0-4.9); Globulin 2.7 g/dL (1.3-4.6); Lipase 121 U/L (13-60); Thyroid Stimulating Hormone 2.69 uIU/mL (0.27-4.20); Total Bilirubin 0.2 mg/dL (0.15-1.2); Total Protein 6.2 g/dL (6.6-8.7)
[2023-11-14 04:04] LABS: Cortisol Random 3.62 ug/dL (2.47-19.5)
--- NOTE | 2023-11-14 04:05 | PC.NURSE ---
Refusal of Care: Pt is refusing telemetry, to be cathed for a urine sample, SCD's and Solu-medrol saying that those things are not necessary. Educated the patient on purpose of all items ordered by the physician and she voiced understanding.
--- NOTE | 2023-11-14 04:42 | PC.NURSE ---
Unable to complete med rec: Pt admitted overnight and is unable to confirm medications or dosages. Did not bring a list with her. Says her caregiver can bring her pill bottles or a list in the morning.
[2023-11-14] MEDS: methylPREDNISolone sod succ 125 mg/2 mL INJ IVP (05:04)
[2023-11-14] MEDS: levothyroxine 100 mcg Tablet PO (05:05)
--- NOTE | 2023-11-14 05:16 | PC.NURSE ---
SOlu-medrol: Pt changed her mind and asked for the steroid injection.
[2023-11-14 06:42] LABS: Troponin 5 6HR 10.84 ng/L (0-10)
[2023-11-14 06:43] LABS: Troponin 5 6HR Delta -1.16 ng/L (0-12)
[2023-11-14] MEDS: cyanocobalamin 1,000 mcg Tablet 1000 MCG PO (09:41)
[2023-11-14] MEDS: aspirin 81 mg EC Tablet PO (09:41)
[2023-11-14] MEDS: amlodipine 5 mg Tablet PO (09:41)
[2023-11-14] MEDS: predniSONE 20 mg Tablet 40 MG PO (09:41)
[2023-11-14] MEDS: pantoprazole DR 40 mg Tablet PO ×2 (09:42→17:57)
[2023-11-14] MEDS: enoxaparin 40 mg/0.4 mL Syringe SUBCUT (09:42)
--- NOTE | 2023-11-14 10:20 | PC.PHAR ---
PT STATES CAREGIVER TAKES CARE OF MEDICATIONS. UNABLE TO MAKE CONTACT WITH CAREGIVER AT THIS TIME. VALERIY [phone]. 11/14/23
[2023-11-14] MEDS: ALPRAZolam 0.5 mg Tablet 2 MG PO ×2 (13:36→22:47)
--- NOTE | 2023-11-14 17:25 | P.PN_ITS ---
Subjective 2 Subjective: Evaluated by physical therapy today. Per review of note patient has limited strength of the left lower extremity due to an old CVA. He has foot drop on the left leg. She exhibited decreased strength and limited range of motion. She had poor safety awareness. Also evaluated by Occupational Therapy, patient is functioning at the same level of independence and self-care that is her normal. Reviewed her past notes, it appears she had seen spinal surgery in 2021 and had been recommended laminectomy at both the cervical and the lumbar levels due to severe stenosis and claudication, however patient adamantly refuses the procedures. States she does not want any interventions on her spine. Medications: Reviewed: Yes Vitals/I&O/Wt Last Vital Signs Temp 98.0 F 11/14/23 16:00 Pulse 94 11/14/23 16:00 Resp 16 11/14/23 16:00 BP 138/65 11/14/23 16:00 Pulse Ox 94 11/14/23 16:00 O2 Del Method Room Air 11/14/23 16:00 11/14/23 11/14/23 11/14/23 06:59 14:59 22:59 Intake Total 1530 / 1530 960 / 960 Balance 1530 / 1530 960 / 960 Weight last 48 hrs Weight 89.811 kg Weight 88.133 kg Weight 68.039 kg Physical Exam 2 Narrative: General: No acute distress, AO x3 HEENT: PERRLA, pupils bilaterally equal and reactive, pallors not present Chest: Normal vesicular breath sounds, no added sounds, equal good air entry bilaterally CVS: S1-S2 regular, no murmurs, no tachycardia, no gallops, no rubs Abdomen: Soft, nontender, no organomegaly, bowel sounds present Neuro: Residual left-sided hemiparesis Data 11/13/23 20:30 11/13/23 20:30 A&P Assessment and plan (1) Acute pain: (2) Generalized weakness: (3) Multiple falls: (4) Cervical stenosis of spinal canal: (5) Lumbar stenosis with neurogenic claudication: Plan Acute pain -Intractable pain -Right knee, right shoulder, right hip, acute neck pain -Chronic history of lumbar disc disease, lumbar stenosis, cervical disc disease, cervical stenosis plan: -Pain control -Dilaudid 1 mg IV push every 4 hours as needed -PT OT -ESR, BEV, rheumatologic panel -Multiple falls, will consider doing further imaging based on clinical progress -As of has left calf swelling, venous ultrasound -UA is pending -History of prior CVA with chronic left-sided weakness -Solu-Medrol 125 followed by 40 mg of prednisone daily for anti-inflammatory effect -DNR/DNI -Lovenox for DVT prophylaxis Plan for today November 14, 2023. Pain is improved today. Patient reports coughing today. Chest x-ray taken yesterday showing irregular opacities, however she has no expectoration, afebrile overall. Check COVID and flu antigens to assess for upper respiratory tract infection. Chest is clear to auscultation. Reviewed therapy notes from today. Known history of cervical and lumbar stenosis for which she has been recommended laminectomy in the past, however patient refuses surgical intervention. Continue therapy management. Disposition planning to be discussed. Attestations 2 Medical Necessity Statement*: Appropriate disposition planning is ongoing Coding Level of Care Code Acute Code for g Fwd Diagnoses Acute pain R52 Generalized weakness R53.1 Multiple falls R29.6 Cervical stenosis of spinal canal M48.02 Lumbar stenosis with neurogenic claudication M48.062
--- NOTE | 2023-11-14 21:02 | PC.NURSE ---
This nurse went to assess the patient and administer gabapentin as scheduled. Patient refused gabapentin, stating that she has not taken gabapentin or any cholesterol medications in years and will continue to refuse them. The patient then asked to speak to the charge nurse. The patient said I need to speak to the charge nurse because they're talking about sending me home tomorrow and that's just ridiculous. I need physical therapy and that physical therapist and occupational therapist came to see me today and I told them I'd work with them tomorrow. But I've been bawling my eyes out because I just can't go home. And I think four of my toes on my left foot are broken so I need physical therapy.
[2023-11-14 23:58] LABS: Adenovirus Not Detected (NOT DETECT); Chlamydia Pneumoniae Not Detected (NOT DETECT); Coronavirus 229E,HKU1,NL63,OC4 Not Detected (NOT DETECT); Human Metapneumovirus Not Detected (NOT DETECT); Human Rhinovirus/Enterovirus Not Detected (NOT DETECT); Influenza A Not Detected (NOT DETECT); Influenza A H1 Not Detected (NOT DETECT); Influenza A H1-2009 Not Detected (NOT DETECT); Influenza A H3 Not Detected (NOT DETECT); Influenza B Not Detected (NOT DETECT); Mycoplasma Pneumoniae Not Detected (NOT DETECT); Parainfluenza Virus Type 1 Not Detected (NOT DETECT); Parainfluenza Virus Type 2 Not Detected (NOT DETECT); Parainfluenza Virus Type 3 Not Detected (NOT DETECT); Parainfluenza Virus Type 4 Not Detected (NOT DETECT); Respiratory Syncytial Virus A Not Detected (NOT DETECT); Respiratory Syncytial Virus B Not Detected (NOT DETECT); SARS-COV-2 Not Detected (NOT DETECT)
[2023-11-15] VITALS: BP 119/71; PULSE 86; RESP 17; TEMP 36.8; O2SAT 95
[2023-11-15 04:00] VITALS: BP 152/79; PULSE 67; RESP 18; TEMP 36.5; O2SAT 94
[2023-11-15] MEDS: levothyroxine 100 mcg Tablet PO (06:16)
--- NOTE | 2023-11-15 07:30 | PC.NURSE ---
Patient's bed alarm was going off. Patient got herself out of bed on her own and over to the bedside commode without assistance.
[2023-11-15 08:00] VITALS: BP 147/69; PULSE 66; RESP 16; TEMP 36.3; O2SAT 95
--- NOTE | 2023-11-15 08:30 | PC.NURSE ---
Patient ambulated to the sink and washed her hands all by herself
[2023-11-15] MEDS: predniSONE 20 mg Tablet 40 MG PO (08:43)
[2023-11-15] MEDS: aspirin 81 mg EC Tablet PO (08:44)
[2023-11-15] MEDS: cyanocobalamin 1,000 mcg Tablet 1000 MCG PO (08:44)
[2023-11-15] MEDS: amlodipine 5 mg Tablet PO (08:44)
[2023-11-15] MEDS: pantoprazole DR 40 mg Tablet PO (08:45)
[2023-11-15 08:57] VITALS: RESP 16; O2SAT 95
[2023-11-15] MEDS: HYDROmorphone 1 mg/mL INJ 1 mL IVP (08:57)
--- NOTE | 2023-11-15 09:16 | PC.ADMIT ---
[address] Admission Note: The patient,Lorena Murray,68 y/o, was given written information regarding hospital policies, unit procedures and contact persons. Patient's smoking status: . Vital Signs - 8 hr 11/15/23 04:00 11/15/23 08:00 11/15/23 08:57 Temperature 97.7 F 97.4 F L Pulse Rate 67 66 Respiratory Rate 18 16 16 Blood Pressure 152/79 147/69 Pulse Oximetry 94 95 95 Oxygen Delivery Method Room Air
[2023-11-15 09:42] LABS: Add Urine Microscopic? NO; Charge for UA Resulting for Rev
[2023-11-15] MEDS: ALPRAZolam 0.5 mg Tablet 2 MG PO (09:44)
[2023-11-15 10:11] LABS: Urine Appearance Clear (CLEAR); Urine Color Yellow (Yellow); pH Urine 6.5 (5-7)
[2023-11-15 10:12] LABS: Bilirubin Urine Neg (Negative); Blood Urine Neg (Negative); Glucose Urine UA Norm (Normal); Ketones Urine Negative (Negative); Leukocyte Esterase Urine Negative (Negative); Nitrate Urine Negative (Negative); Protein Urine Neg (Negative); Urobilinogen Urine Norm (Negative)
[2023-11-15 11:26] VITALS: PULSE 73; RESP 16; O2SAT 95
--- NOTE | 2023-11-15 11:52 | P.DS_ITS ---
Discharge Providers Date of Admission: 11/13/23 22:07 Date of Discharge: November 15, 2023 Attending Provider at Admission: Abner Cevallos MD Attending Provider at Discharge: Priyanka Jackson MD Primary Care Provider: Dany Andino MD Diagnoses at Discharge Discharge Diagnosis (1) Acute pain: Status: Acute (2) Generalized weakness: Status: Acute (3) Multiple falls: Status: Acute (4) Cervical stenosis of spinal canal: Status: Inactive (5) Lumbar stenosis with neurogenic claudication: Status: Inactive Reason for Visit Reason for Visit: back and knee pain Hospital Course Hospital Course Lorena Murray is a 68 year old female history of cervical disc disease, her history of cervical spinal stenosis, has a history of lumbar disc disease, lumbar stenosis with neurogenic claudication, history of neuropathy, history of left hip fracture, history of rib fractures, hypertension, neuropathy, anxiety, hypertension, history of CVA with chronic left-sided weakness, left hand in a sling with flexion contracture, left lower extremity weakness which is chronic, who lives at home, has a in-home caregiver, presents [facility] due to frequent falls, multiple pain complaints, pain with ambulation. She stated that she has generalized pain and weakness and has been diagnosed with multiple ailments as above and she also mentions a history of fibromyalgia. She requests opiates for pain management and states that she has a very high pain tolerance. She stated that at home her knees were giving out under her. She was evaluated by physical therapy on the 2 days that she remained inpatient. She was noted to have some decreased endurance and decreased strength, left foot drop. With a walker she was able to ambulate 75 feet x 2 with a seated rest. She was recommended to use a rollator walker so that she is able to advance the walker easily. She reported that the walker she had bought off of [employer] was broken and may be contributing to her falls. A new rollator has been arranged for her at the time of discharge. SNF was discussed with the patient for continued rehab, however she refused. Overall patient is likely to benefit from continued physical therapy and this is being arranged for her while home health with PT. I discussed with her her imaging studies from the past which noted severe cervical and lumbar stenosis with neurogenic claudication. She has seen Dr. Bose in the past for the same and was recommended to undergo laminectomy, however patient states she is not interested in getting any surgeries. 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 She reports that she has episodic wheezing for which she uses an inhaler at home. I offered to refill her inhaler however she declines the same stating she will call her primary care physician's office for the refill as she is worried about the cost of inhaler with me prescribing it. No wheezing was encountered on exam today. She is noted to have slight cough without expectoration, she states this has been going on since last summer and is not new for her. I offered to refer her to pain management for her chronic pain and also rheumatology because of her reported history of fibromyalgia, however she refuses both of these stating that she does not like visiting doctors offices as she feels she leaves sicker than when she came in. Arranging physical therapy for her at home appears to be the best course of action at this time. Patient is otherwise clinically doing well. She is hemodynamically stable. Afebrile. Saturating 95% on room air. Normal liver and kidney function and troponins TSH random cortisol since admission.UA unremarkable. Physical Exam Narrative: General: No acute distress, AO x3 HEENT: PERRLA, pupils bilaterally equal and reactive, pallors not present Chest: Normal vesicular breath sounds, no added sounds, equal good air entry bilaterally CVS: S1-S2 regular, no murmurs, no tachycardia, no gallops, no rubs Abdomen: Soft, nontender, no organomegaly, bowel sounds present Neuro: left sided weakness residual from old stroke Extremities: left foot drop Discharge Data Studies Completed and Pending Completed Studies During Hospitalization Category Date Time Status CT cervical spin wo con* [id number] Stat Cat Scan 11/13/23 19:[address] head wo con* [id number] Stat Cat Scan 11/13/23 19:34 Completed XR chest 1V portable [id number] Stat Exams 11/13/23 19:34 Completed XR foot LT min 3V* [id number] Stat Exams 11/13/23 19:34 Completed XR knee RT 3V* [id number] Stat Exams 11/13/23 20:29 Completed XR pelvis 1-2V* [id number] Stat Exams 11/13/23 19:34 Completed XR shoulder RT min 2V* [id number] Stat Exams 11/13/23 19:34 [place] [id number] Routine Ultrasound 11/14/23 02:34 Completed Pending at discharge Category Date Time Status BEV Profile Rheumatology Stat Lab 11/13/23 23:47 Received Radiology Impressions Cervical Spine CT 11/13/23 19:34 IMPRESSION: 1. No acute cervical spine fracture or listhesis. 2. Multilevel degenerative changes, as above. Chest X-Ray 11/13/23 19:34 IMPRESSION: Irregular opacities in the left lung base laterally. Foot X-Ray 11/13/23 19:34 IMPRESSION: No acute findings. ADDENDUM: 11/13/23 2017 On further review of the images there appears to be a cortical irregularity along the lateral aspect of the 4th metatarsal neck and possibly the 5th metatarsal neck though this is only seen on one view. Correlate with point tenderness as these may represent subtle nondisplaced fractures. Head CT 11/13/23 19:34 IMPRESSION: 1. No acute intracranial abnormality. 2. Small-vessel ischemic disease. Pelvis X-Ray 11/13/23 19:34 IMPRESSION: 1. Left hip arthroplasty redemonstrated without evidence of hardware failure or loosening. 2. No acute fracture. Shoulder X-Ray 11/13/23 19:34 IMPRESSION: No acute findings. Knee X-Ray 11/13/23 20:29 IMPRESSION: No acute findings. Laboratory Results WBC 6.77 10^3/uL (3.29-11.43) 11/13/23 20:30 RBC 5.09 10^6/uL (3.85-5.65) 11/13/23 20:30 Hgb 14.80 g/dL (11.27-16.99) 11/13/23 20:30 Hct 45.1 % (36-47) 11/13/23 20:30 MCV 88.6 fl (85-98) 11/13/23 20:30 MCH 29.1 pg (27-33) 11/13/23 20:30 MCHC 32.8 g/dL (30-55) 11/13/23 20:30 RDW 12.9 % (12.1-15.1) 11/13/23 20:30 Plt Count 97 10^3/cmm (157-399) L 11/13/23 20:30 MPV 10.5 fL (7.4-10.4) H 11/13/23 20:30 Neut % (Auto) 68.7 % 11/13/23 20:30 Lymph % (Auto) 22.9 % 11/13/23 20:30 Sumner % (Auto) 8.1 % 11/13/23 20:30 Eos % (Auto) 0.0 % 11/13/23 20:30 Baso % (Auto) 0.0 % 11/13/23 20:30 Neut # (Auto) 4.65 10^3/uL (1.8-7.7) 11/13/23 20:30 Lymph # (Auto) 1.6 10^3/uL (0.8-4.8) 11/13/23 20:30 Sumner # (Auto) 0.6 10^3/uL (0.2-0.9) 11/13/23 20:30 Eos # (Auto) 0.0 10^3/uL (0.0-0.8) 11/13/23 20:30 Baso # (Auto) 0.0 10^3/uL (0.0-0.1) 11/13/23 20:30 Nucleated RBC % (auto) 0 % 11/13/23 20:30 Nucleated RBCs # 0.0 /100WBC 11/13/23 20:30 ESR 25 mm/hr (0-15) H 11/14/23 03:00 Sodium 142 mmol/L (136-145) 11/13/23 20:30 Potassium 4.4 mmol/L (3.5-5.1) 11/13/23 20:30 Chloride 109 mmol/L (98-107) H 11/13/23 20:30 Carbon Dioxide 24 mmol/L (22-29) 11/13/23 20:30 Anion Gap 13.4 (5-19) 11/13/23 20:30 BUN 19 mg/dL (8-23) 11/13/23 20:30 Creatinine 0.6 mg/dL (0.5-0.9) 11/13/23 20:30 GFR Calculation 99.1 mL/min (90-130) 11/13/23 20:30 Glucose 98 mg/dL (65-115) 11/13/23 20:30 Calculated Osmolality 296 mOsm/kg (285-295) H 11/13/23 20:30 Calcium 9.7 mg/dL (8.5-10.5) 11/13/23 20:30 Magnesium 2.0 mg/dL (1.7-2.3) 11/14/23 03:00 Total Bilirubin 0.2 mg/dL (0.15-1.2) 11/14/23 03:00 Direct Bilirubin 0.20 mg/dL (0.00-0.30) 11/14/23 03:00 AST 22 U/L (0-32) 11/14/23 03:00 ALT 18 U/L (0-33) 11/14/23 03:00 Alkaline Phosphatase 83 U/L (35-105) 11/14/23 03:00 Troponin T Baseline 12 ng/L (0-10) H 11/13/23 23:47 Troponin T 120 Minute 11.51 ng/L (0-10) H 11/14/23 03:00 Delta Troponin T -0.49 ABS# (0-10) L 11/14/23 03:00 Troponin T Hi Sens 6Hr 10.84 ng/L (0-10) H 11/14/23 05:41 Troponin T Hi Sens 6Hr Delta -1.16 ng/L (0-12) L 11/14/23 05:41 C-Reactive Protein 9.4 mg/L (0.0-4.9) H 11/14/23 03:00 Total Protein 6.2 g/dL (6.6-8.7) L 11/14/23 03:00 Albumin 3.5 g/dL (3.5-5.2) 11/14/23 03:00 Globulin 2.7 g/dL (1.3-4.6) 11/14/23 03:00 Lipase 121 U/L (13-60) H 11/14/23 03:00 TSH 2.69 uIU/mL (0.27-4.20) 11/14/23 03:00 Random Cortisol 3.62 ug/dL (2.47-19.5) 11/14/23 03:00 Urine Color Yellow (Yellow) 11/15/23 09:35 Urine Appearance Clear (CLEAR) 11/15/23 09:35 Urine pH 6.5 (5-7) 11/15/23 09:35 Ur Specific [place] 1.020 (1.005-1.030) 11/15/23 09:35 Urine Protein Neg (Negative) 11/15/23 09:35 Urine Glucose (UA) Norm (Normal) 11/15/23 09:35 Urine Ketones Negative (Negative) 11/15/23 09:35 Urine Blood Neg (Negative) 11/15/23 09:35 Urine Nitrate Negative (Negative) 11/15/23 09:35 Urine Bilirubin Neg (Negative) 11/15/23 09:35 Urine Urobilinogen Norm mg/dL (Negative) 11/15/23 09:35 Ur Leukocyte Esterase Negative (Negative) 11/15/23 09:35 Adenovirus (PCR) Not detected (NOT DETECT) 11/14/23 21: C. pneumoniae DNA (PCR) Not detected (NOT DETECT) 11/14/23 21: Coronavirus 229E (PCR) Not detected (NOT DETECT) 11/14/23 21: Human Metapneumovir PCR Not detected (NOT DETECT) 11/14/23: Influenza A (H1) PCR Not detected (NOT DETECT) 11/14/23 21: Influ A (H1/09) PCR Not detected (NOT DETECT) 11/14/23 21: Influenza A (H3) PCR Not detected (NOT DETECT) 11/14/23 21:25 Influenza Type A Ag Cancelled 11/14/23 22:02 Influenza Type A (PCR) Not detected (NOT DETECT) 11/14/23 21: Influenza Type B Ag Cancelled 11/14/23 22:02 Influenza Type B (PCR) Not detected (NOT DETECT) 11/14/23 21: M. pneumoniae (PCR) Not detected (NOT DETECT) 11/14/23 21: Parainfluenza 1 (PCR) Not detected (NOT DETECT) 11/14/23 21: Parainfluenza 2 (PCR) Not detected (NOT DETECT) 11/14/23 21: Parainfluenza 3 (PCR) Not detected (NOT DETECT) 11/14/23 21: Parainfluenza 4 (PCR) Not detected (NOT DETECT) 11/14/23 21: RSV Type A (PCR) Not detected (NOT DETECT) 11/14/23 21: RSV Type B (PCR) Not detected (NOT DETECT) 11/14/23 21:25 Entero/Rhino (PCR) Not detected (NOT DETECT) 11/14/23 21:25 SARS-CoV-2 (PCR) Not detected (NOT DETECT) 11/14/23 21:25 Vitals Last Vital Signs Temp 97.4 F L 11/15/23 08:00 Pulse 73 11/15/23 11:26 Resp 16 11/15/23 11:26 BP 147/69 11/15/23 08:00 Pulse Ox 95 11/15/23 11:26 O2 Del Method Room Air 11/15/23 11:26 Discharge Plan Discharge Patient Disposition: Home Condition: Stable Prescriptions: Continued hydrocodone-acetaminophen 10-325 mg tablet 1 tab PO BID PRN (Reason: pain) 30 Days Qty: 30 0RF (DME) ASO See Rx Instructions .Route .MEDSUPPLY Qty: 1 0RF Rx Instructions: As directed magnesium oxide 400 mg (241.3 mg magnesium) tablet 400 mg PO BEDTIME amlodipine 5 mg tablet 5 mg PO DAILY potassium chloride 10 mEq tablet extended release 10 meq PO BEDTIME furosemide 40 mg tablet 20 mg PO DAILY PRN (Reason: Edema) garlic 1,000 mg capsule 1,000 mg PO DAILY red yeast rice 600 mg tablet 600 mg PO BID Rx Instructions: give with meal/snack mecobalamin (vitamin B12) 1,000 mcg tablet,chewable 1,000 mcg PO DAILY diphenhydramine HCl [Allergy Relief(diphenhydramin)] 25 mg tablet 25 mg PO QID PRN (Reason: Allergy Symptoms) loperamide [Imodium A-D] 2 mg capsule 2 mg PO QID PRN (Reason: Diarrhea) alprazolam [Xanax] 2 mg tablet 2 mg PO TID PRN (Reason: unknown) albuterol sulfate [ProAir HFA] 90 mcg/actuation HFA aerosol inhaler 2 puff inhalation QID PRN (Reason: Shortness Of Breath) (DME) ASO See Rx Instructions .Route .MEDSUPPLY Qty: 1 0RF Rx Instructions: As directed (DME) Kirsten AFO left See Rx Instructions .Route .MEDSUPPLY Qty: 1 0RF Rx Instructions: As directed pantoprazole 40 mg tablet,delayed release (DR/EC) 40 mg PO BID MDD 2 30 Days Qty: 60 3RF triamcinolone acetonide 0.025 % Cream 1 applic TOPICAL BID PRN (Reason: unknown) Carb-Fppg-Lzycf (vit C-biotin) 50 mg -1,250 mcg Tablet,Chewable 2 tab PO DAILY Probichew 21 billion cell - 1 gram Tablet,Chewable 2 tab PO DAILY Elderberry Gummy 1 cap PO DAILY@12 levothyroxine 100 mcg tablet 100 mcg PO DAILY omega 2-iik-adc-fish oil [Fish Oil] 300-1,000 mg Capsule 1 cap PO BEDTIME coenzyme Q10 [CoQ-10] 100 mg Capsule 200 mg PO DAILY psyllium husk [Daily Fiber] 0.4 gram Capsule 0.4 g PO DAILY aspirin [Adult Aspirin Regimen] 81 mg tablet,delayed release (DR/EC) 81 mg PO DAILY Qty: 60 0RF ondansetron 4 mg tablet,disintegrating 4 mg PO Q6H PRN (Reason: Nausea) metoprolol tartrate 25 mg tablet 25 mg PO BID 28 mg iron- 800 mcg Tablet 1 tab PO DAILY Discharge Orders: Discharge Order (Routine); Ordered 11/15/23 Ordered By: Priyanka Jackson Other Ambulatory Orders: DME: Shiva (Order) Location: None Selected Ordered By: Priyanka Jackson Referrals: Dany Andino MD [Primary Care Provider] - 7-10 days Discharge Diet: Usual diet Discharge Activity: Resume usual activity Patient Instructions: Opioid Safety Discharge Attestations Time Spent in Discharge Care*: greater than 30 min Quality Metrics Clinical Quality Measures [ No reported AMI, CVA or VTE this stay] Coding Level of Care Code Acute Code for Chg Fwd Diagnoses Acute pain R52 Generalized weakness R53.1 Multiple falls R29.6 Cervical stenosis of spinal canal M48.02 Lumbar stenosis with neurogenic claudication M48.062
[2023-11-15 12:00] VITALS: BP 144/64; PULSE 64; RESP 16; TEMP 36.6; O2SAT 97
[2023-11-15 13:39] LABS: CENTROMERE B ANTIBODY <1.0 NEG AI (<1.0 NEG); JO-1 ANTIBODY <1.0 NEG AI (<1.0 NEG); RNP ANTIBODY <1.0 NEG AI (<1.0 NEG); SCL-70 ANTIBODY <1.0 NEG AI (<1.0 NEG); SJOGREN'S ANTIBODY (SS-A) <1.0 NEG AI (<1.0 NEG); SM ANTIBODY <1.0 NEG AI (<1.0 NEG); SS-B <1.0 NEG AI (<1.0 NEG)
[2023-11-15 17:29] LABS: ANA SCREEN, IFA NEGATIVE (NEGATIVE)
[2023-11-16 13:24] LABS: COMPLEMENT, TOTAL (CH50) 60 U/mL (31-60)
[2023-11-16 13:28] LABS: COMPLEMENT COMPONENT C3C 119 mg/dL (83-193); COMPLEMENT COMPONENT C4C 16 mg/dL (15-57)
[2023-11-16 17:29] LABS: THYROID PEROXIDASE ANTIBODIES 2 IU/mL (<9)
[2023-11-23 15:08] LABS: DNA AB (DS) CRITHIDIA,IFA NEGATIVE (NEGATIVE)
== END 2023-11-15 14:40 | disposition home health service (06) ==
LOC: ER 21:31 → MEDSURG 11-14 07:39
PROVIDERS: Admitting Provider Family Medicine; Emergency Provider Emergency Medicine; PCP Family Medicine; Visit Provider Student in an Organized Health Care Education/Training Program
DX: R53.1 Weakness (principal); R29.6 Repeated falls; M48.02 Spinal stenosis, cervical region; M48.062 Spinal stenosis, lumbar region with neurogenic claudication; I10 Essential (primary) hypertension; Z86.73 Personal history of transient ischemic attack (TIA), and cerebral infarction without residual deficits; Z66 Do not resuscitate; R60.0 Localized edema
CPT/HCPCS: 36415; 70450; 71045; 72125; 72170; 73030; 73562; 73630; 80048; 80076; 81003; 82533; 83690; 83735; 84443; 84484; 85025; 85651; 86140; 86160; 86162; 86235; 86255; 86376; 87486; 87581; 87633; 93971; 94664; 96372; 96374; 97110; 97116; 97161; 97165; 99285; G0378; J0696; J1170; J1650; J2930; J7030; J7512

== ENCOUNTER 2024-02-05 14:50 | Outpatient (CLI) | payer MEDICARE, MEDICAID, SELFPAY ==
--- NOTE | 2024-02-05 14:54 | MM_ITS ---
WS: [id number] DIAGNOSTIC BILATERAL DIGITAL BREAST TOMOSYNTHESIS MAMMOGRAPHY WITH CAD RIGHT breast ultrasound, limited HISTORY: RIGHT breast pain. COMPARISON: 06/13/2004, 01/17/2023 TECHNIQUE: Bilateral craniocaudad, mediolateral oblique, and mediolateral views are submitted with to mosynthesis and SM. Spot compression RIGHT CC. Computer aided detection utilized. Breast composition: There are scattered areas of fibroglandular density. Benign breast arterial calci fications. Lymph node upper outer quadrant RIGHT breast. No suspicious masses. RIGHT breast ultrasound, limited. Ultrasound in the RIGHT breast is directed to the areas of concern by the patient. Ultrasound directe d to the 9-11 o'clock axis. There is no mass or soft tissue thickening. No increased vascularity. IMPRESSION: MM/[place] [id number] BI-RADS: 2-Benign FOLLOW UP: 1 Year Follow-up
== END 2024-02-05 14:51 | disposition home or self-care (01) ==
LOC: RAD 14:51
PROVIDERS: PCP Family Medicine; Visit Provider Family Medicine
DX: N64.4 Mastodynia (principal)
CPT/HCPCS: 76642; 77062; G0279

== ENCOUNTER 2024-06-11 12:26 | Outpatient (CLI) | payer MEDICARE, MEDICAID, SELFPAY ==
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
[2024-06-11 13:22] LABS: Blood Urea Nitrogen 18 mg/dL (8-23); Glomerular Filtration Rate 82.7 mL/min (90-130)
[2024-06-11] MEDS: iohexol 350 mg/mL 500 mL Btl (per mL) IV (13:55)
== END 2024-06-11 12:27 | disposition home or self-care (01) ==
LOC: RAD 12:29
PROVIDERS: Radiology Neuroradiology; PCP Family Medicine; Visit Provider General Practice
DX: M40.56 Lordosis, unspecified, lumbar region (principal); S32.030A Wedge compression fracture of third lumbar vertebra, initial encounter for closed fracture; M48.061 Spinal stenosis, lumbar region without neurogenic claudication; M51.36 Other intervertebral disc degeneration, lumbar region; X58.XXXA Exposure to other specified factors, initial encounter
CPT/HCPCS: 72133; 82565; 84520; Q9967

== ENCOUNTER 2024-07-02 15:03 | Outpatient (CLI) | payer MEDICARE, MEDICAID, SELFPAY ==
--- NOTE | 2024-07-02 15:11 | XR_ITS ---
WS: [id number] DEXA (DUAL ENERGY X-RAY ABSORPTIOMETRY) Bone mineral density was performed using a [employer] machine. HISTORY: postmenopausal COMPARISON: None available. Lumbar spine BMD (L1-L4): 0.862 g/cm2 T score: -2.6 Z score: -1.8 Total hip BMD: Right: 0.698. T score: -2.5 Z score: -1.6 Left forearm BMD: 0.402 g/cm2. T score: -5.4 Z score: -3.6 10 year probability of a major osteoporotic fracture is 32.1%. XR/XR DEXA axial skeleton* [id number] IMPRESSION: OSTEOPOROSIS based upon the WHO classification for females.
== END 2024-07-02 15:04 | disposition home or self-care (01) ==
PROVIDERS: PCP Family Medicine; Visit Provider Family Medicine
DX: Z78.0 Asymptomatic menopausal state (principal); M81.0 Age-related osteoporosis without current pathological fracture
CPT/HCPCS: 77080

== ENCOUNTER → 2025-04-02 12:56 | Outpatient (BNVA) | payer MEDICARE, MEDICAID, SELFPAY | PROVIDERS: PCP Family Medicine; Visit Provider Internal Medicine | DX: Z01.810 Encounter for preprocedural cardiovascular examination (principal) | CPT/HCPCS: 93005 ==

== ENCOUNTER → 2025-04-06 12:31 | Outpatient (BNVA) | payer MEDICARE, MEDICAID, SELFPAY | PROVIDERS: PCP Family Medicine; Visit Provider Internal Medicine | DX: Z01.818 Encounter for other preprocedural examination (principal); R07.9 Chest pain, unspecified; I25.10 Atherosclerotic heart disease of native coronary artery without angina pectoris; R06.09 Other forms of dyspnea; Z87.891 Personal history of nicotine dependence; I10 Essential (primary) hypertension; Z95.5 Presence of coronary angioplasty implant and graft | CPT/HCPCS: 99204 ==

== ENCOUNTER 2025-04-08 17:29 | Emergency (ER) | payer MEDICARE, MEDICAID, SELFPAY ==
[2025-04-08 17:33] VITALS: BP 130/101; PULSE 82; RESP 16; TEMP 36.8; O2SAT 94; BMI 30.4
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
--- NOTE | 2025-04-08 18:48 | PC.NURSE ---
Hotline submitted to [facility] and [facility]. Report #[id number] was created at 04/08/2025, 6:47:36 PM
[2025-04-08] MEDS: HYDROmorphone 0.5 MG/0.5 ML INJ IVP (18:53)
[2025-04-08] MEDS: ondansetron 2 mg/ML SDV 2 mL 4 MG IVP (18:53)
[2025-04-08 18:58] VITALS: BP 137/73; PULSE 91; RESP 18; O2SAT 95
[2025-04-08 19:09] VITALS: BP 146/76; PULSE 80; RESP 16; O2SAT 93
[2025-04-08 19:19] LABS: Basophils % 0.2 %; Lymphocytes % 21.7 %; Mean Corpuscular HGB Conc 34.4 g/dL (30-55); Mean Corpuscular Hemoglobin 30.3 pg (27-33); Mean Corpuscular Volume 87.9 fl (85-98); Mean Platelet Volume 10.6 fL (7.4-10.4); Monocytes # 0.3 10^3/uL (0.2-0.9); Monocytes % 5.6 %; Neutrophils # 3.22 10^3/uL (1.8-7.7); Neutrophils % 72.3 %; Nucleated Red Blood Cells % 0 %; Platelet Count 75 10^3/cmm (157-399); Red Blood Count 4.89 10^6/uL (3.85-5.65); Red Cell Distribution Width 12.8 % (12.1-15.1); White Blood Count 4.46 10^3/uL (3.29-11.43)
[2025-04-08 19:27] LABS: INR 1.03 (0.8-1.2)
[2025-04-08 19:40] LABS: Alanine Aminotransferase 25 U/L (0-33); Albumin Level 3.7 g/dL (3.5-5.2); Alkaline Phosphatase 68 U/L (35-105); Anion Gap 14.7 (5-19); Aspartate Amino Transferase 34 U/L (0-32); Blood Urea Nitrogen 17 mg/dL (8-23); Calcium 8.9 mg/dL (8.5-10.5); Carbon Dioxide 24 mmol/L (22-29); Chloride 108 mmol/L (98-107); Creatinine Clr Calc Pharmacy 66.1181; Globulin 3.3 g/dL (1.3-4.6); Glucose 87 mg/dL (65-115); Osmolality Calculated 297 mOsm/kg (285-295); Potassium 3.7 mmol/L (3.5-5.1); Sodium 143 mmol/L (136-145); Total Bilirubin 0.6 mg/dL (0.15-1.2)
[2025-04-08 20:18] VITALS: BP 158/76; PULSE 88; RESP 16; O2SAT 98
== END 2025-04-08 20:20 | disposition short-term general hospital (02) ==
PROVIDERS: Emergency Provider Emergency Medicine; PCP Family Medicine
DX: S06.5XAA Traumatic subdural hemorrhage with loss of consciousness status unknown, initial encounter (principal); S02.40DA Maxillary fracture, left side, initial encounter for closed fracture; Z87.891 Personal history of nicotine dependence; I10 Essential (primary) hypertension; Y04.2XXA Assault by strike against or bumped into by another person, initial encounter
CPT/HCPCS: 36415; 70450; 70486; 72125; 80053; 85025; 85610; 96374; 96375; 99285; J1171; J2405

== ENCOUNTER 2025-05-01 10:03 | Outpatient (CLI) | payer MEDICARE, MEDICAID, SELFPAY ==
--- NOTE | 2025-05-01 10:38 | ECG_ITS ---
[facility] Test Date: 2025-05-01 Pat Name: Lorena Murray Department: Room: Gender: Female Resource Teacher: : 1955 Requested By: Wayne Quigley Order Number: [id number] Yash MD: Rashaun Wheat M.D. Interpretive Statements PROCEDURE: At the baseline, the EKG revealed normal sinus rhythm with some nonspecific T wave changes. The baseline heart was 77 bpm with a blood pressue of 144/77 mm of Hg Lexiscan was infused over a period of 20 seconds. A total of 0.4 milligrams of Lexiscan was infused. The stress phase was continued for a total of 5 minutes. Heart rate at the end of the stress phase was 97 bpm with a blood pressure 126/80 mm of Hg. The EKG at the peak infusion revealed no significant changes. Sestamibi was injected 20 seconds after the Lexiscan infusion. Heart rate at the end of the recovery phase was 94 bpm with a blood pressure of 126/81 mm of Hg. CONCLUSION: 1. No significant EKG changes with the LexiScan infusion 2. No LexiScan induced chest pain or cardiac arrhythmia 3. Normal blood pressure and heart rate response 4. Sestamibi/sestamibi perfusion scan pending; see separate report. Electronically Signed On 05-03-2025 21:16:32 CDT by Rashaun Wheat M.D. [email or web address]
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
[2025-05-01 12:05] VITALS: BP 131/86; PULSE 93
== END 2025-05-01 10:04 | disposition home or self-care (01) ==
LOC: CDL 10:08
PROVIDERS: PCP Family Medicine; Visit Provider Internal Medicine
DX: R07.9 Chest pain, unspecified (principal); R93.1 Abnormal findings on diagnostic imaging of heart and coronary circulation
CPT/HCPCS: 36415; 78452; 93017; 96374; A9500; J2785

== ENCOUNTER 2025-05-13 16:23 | Outpatient (CLI) | payer MEDICARE, MEDICAID, SELFPAY ==
--- NOTE | 2025-05-13 16:33 | CT_ITS ---
WS: [id number] CT HEAD WITH AND WITHOUT CONTRAST HISTORY: TRAUMATIC SUBDURAL HEMORRHAGE WITH LOSS OF CONSCIOUSNESS TECHNIQUE: Noncontrast axial images obtained from the vertex to the skull base. Additional imaging performed at mm axial images status post IV contrast. Bone and soft tissue windows are reviewed. All CT scans at [facility] use at least one of these dose optimization techniques: automated exposure control; mA and/or kV adjustment per patient size (includes targeted exams where dose is matched to clinical indication); or iterative reconstruction. CONTRAST: Omnipaque 350; 100 mL IV. DLP: 2097.00 mGy.cm COMPARISON: 04/08/2025 No acute intracranial hemorrhage, edema or midline shift. Previously described RIGHT temporal subdural hematoma has resolved. No acute blood products are identified. No midline shift or mass effect. Moderate atrophy and small vessel disease. No enhancing mass or vascular malformations identified. Dural venous sinuses are normally enhancing. Visualized [place] is unremarkable. Paranasal sinuses as visualized: Clear. Fracture involving the anterior wall the LEFT maxillary sinus is not included on this CT of the head. Partially included is a minimally displaced LEFT zygomatic arch fracture. Mastoid air cells: Clear. Calvarium and scalp: No skull fracture. Significant improvement in the visualized and included portion of the soft tissue contusion and hematoma centered over the LEFT face. CT/CT head wo/w con [id number] IMPRESSION: 1. Complete interval resolution of the small RIGHT temporal subdural hematoma since 04/08/2025. 2. No vascular malformations or abnormal enhancement. 3. Moderate atrophy and small vessel disease. 4. Improved LEFT facial soft tissue contusion. 5. Visualized LEFT zygomatic arch fracture is unchanged. 6. This CT of the head did not include the additional LEFT facial bone fractur es described on the prior study.
[2025-05-13] MEDS: iohexol 350 mg/mL 500 mL Btl (per mL) IV (16:51)
== END 2025-05-13 16:24 | disposition home or self-care (01) ==
LOC: RAD 16:24
PROVIDERS: PCP Family Medicine; Visit Provider Family Medicine
DX: S06.5XAD Traumatic subdural hemorrhage with loss of consciousness status unknown, subsequent encounter (principal); G31.89 Other specified degenerative diseases of nervous system; X58.XXXD Exposure to other specified factors, subsequent encounter
CPT/HCPCS: 70470

== ENCOUNTER → 2025-07-23 11:11 | Outpatient (BNVA) | payer MEDICARE, MEDICAID, SELFPAY | PROVIDERS: PCP Family Medicine; Visit Provider Dermatology | DX: L23.9 Allergic contact dermatitis, unspecified cause (principal); L57.0 Actinic keratosis; L57.3 Poikiloderma of Civatte; L81.4 Other melanin hyperpigmentation; D48.5 Neoplasm of uncertain behavior of skin | CPT/HCPCS: 11102; 99203 ==

== ENCOUNTER → 2025-08-13 13:49 | Outpatient (BNVA) | payer MEDICARE, MEDICAID, SELFPAY | PROVIDERS: PCP Family Medicine; Visit Provider Dermatology | DX: C44.1192 Basal cell carcinoma of skin of left lower eyelid, including canthus (principal); L21.8 Other seborrheic dermatitis | CPT/HCPCS: 99214 ==